=== PATIENT | female | born 1945 | race Caucasian/White ===

== ENCOUNTER 2017-10-18 21:17 | Emergency (ER) | payer MEDICARE, MEDICAID ==
--- NOTE | 2017-10-18 21:23 | UC ---
Respiratory Complaint HPI - HPI Summary HPI Summary: Pt presents with cold like symptoms. She complains of a dry cough, sinus congestion/pressure/pain, headache, and B/L eye irritation that has been lasting a week and getting progressively worse. She has been taking mucinex OTC. She tells me that she has a rather unfortunate health history, mostly due to her weight and heart issues (CABG, valve replacement, and currently stable CHF). She also mentions that she forgot to take her prescribed medications this morning. Her respirations are elevated today, but she says - again - this is her baseline due to her weight and heart issues...she does not feel more SOB than usual. She denies fever, chills, chest congestion, SOB, chest pain, abdominal pain, increased swelling, N/V/D/C. - History of Current Complaint Chief Complaint: UCRespiratory Stated Complaint: COUGH,SOB Time Seen by Provider: 10/18/17 21:23 Hx Obtained From: Patient Onset/Duration: Gradual Onset Severity Initially: Moderate Severity Currently: Moderate Character: Cough: Nonproductive - Allergies/Home Medications Allergies/Adverse Reactions: Allergies Allergy/AdvReac Type Severity Reaction Status Date / Time No Known Allergies Allergy Verified 06/10/16 18:16 PMH/Surg Hx/FS Hx/Imm Hx Cardiovascular History: Cardiac Disease, Hypertension, Congestive Heart Failure Psychological History: Anxiety, Depression Other History Of: Anticoagulant Therapy - Coumadin - Surgical History Surgical History: Yes Surgery Procedure, Year, and Place: 2004 - mitral valve replacement, 2009 [facility]- 2nd mitral valve replacement, CABG - Family History Known Family History: Positive: Unknown - Social History Alcohol Use: None Substance Use Type: None Smoking Status (MU): Never Smoked Tobacco Review of Systems Constitutional: Negative Skin: Negative Eyes: Eye Redness ENT: Sore Throat, Nasal Discharge, Sinus Congestion, Sinus Pain/Tenderness Respiratory: Cough Cardiovascular: Negative Gastrointestinal: Negative Genitourinary: Negative Neurological: Negative Psychological: Negative All Other Systems Reviewed And Are Negative: Yes Physical Exam Triage Information Reviewed: Yes Appearance: Ill-Appearing, Obese Vital Signs: Initial Vital Signs Temp 97.9 F 10/18/17 21:18 Pulse 105 10/18/17 21:18 Resp 24 10/18/17 21:18 BP 180/84 10/18/17 21:18 Pulse Ox 98 10/18/17 21:18 Vital Signs Reviewed: Yes Eyes: Positive: Conjunctiva Clear, Other: - Erythema about the eyelids, but no conjunctival injection or irritation. No dischage. EOMI. PERRLA ENT: Positive: Hearing grossly normal, Pharynx normal, Nasal congestion, Nasal drainage, TMs normal, Sinus tenderness. Negative: Pharyngeal erythema, TM bulging, TM dull, TM red, Tonsillar swelling, Tonsillar exudate Neck: Positive: Supple, Nontender, No Lymphadenopathy Respiratory: Positive: Chest non-tender, Lungs clear, Normal breath sounds, No respiratory distress, No accessory muscle use Cardiovascular: Positive: Pulses Normal Abdomen Description: Positive: Nontender, Soft. Negative: Distended, Guarding Bowel Sounds: Positive: Present Neurological: Positive: Alert Psychological: Positive: Age Appropriate Behavior Skin: Positive: Other - There is 1+ edema in b/l LE - pt says this is her baseline.. Negative: rashes UC Diagnostic Evaluation - Laboratory O2 Sat by Pulse Oximetry: 98 Respiratory Course/Dx - Course Course Of Treatment: Sinusitis - Augmentin for 10 days. Her lungs are clear on exam - no need for CXR at this time. Her LE edema is mild and is her baseline - per pt...this with normal lung sounds and 98% O2 RA - low suspicion for decomp CHF. Her BP was elevated upon presentation. She has not taken her medications today. Her BP was rechecked with a manual cuff and found to be 124/ 62. She was advised to be more careful and make sure she is taking her daily medications as prescribed. - Differential Dx/Diagnosis Differential Diagnosis/HQI/PQRI: Asthma, Bronchitis, CHF, Pulmonary Edema, Influenza, Lower Resp Infection, Pulmonary Embolism, Sinusitis Provider Diagnoses: Sinusitis. HTN. CHF Discharge - Discharge Plan Condition: Stable Disposition: HOME Prescriptions: Amoxicillin/Clavulanate TAB* [Augmentin TAB 875*] 875 mg PO BID #20 tab Patient Education Materials: Sinusitis (ED) Referrals: Roger Shen DO [Primary Care Provider] - Additional Instructions: 1) If you develop a fever, increasing SOB, chest pain, new or worsening symptoms - please call your PCP or go to the ED. 2) Augmentin twice a day for 10 days Your blood pressure was high at todays visit. Please see your primary provider within 4 weeks for recheck and re-evaluation.
[2017-10-18] MEDS ORDERED: Amoxicillin/Clavulanate TAB* 875 MG PO ONE (21:42)
[2017-10-18 22:18] VITALS: BP 124/62
== END 2017-10-18 22:00 | disposition home or self-care (01) ==
LOC: UCEAST 21:17
DX: J32.9 Chronic sinusitis, unspecified (principal); I50.9 Heart failure, unspecified; Z95.1 Presence of aortocoronary bypass graft; Z95.2 Presence of prosthetic heart valve; Z79.01 Long term (current) use of anticoagulants; I10 Essential (primary) hypertension; F41.8 Other specified anxiety disorders
CPT/HCPCS: 99212; A9270-GY; G0463

== ENCOUNTER 2018-02-15 11:39 | Inpatient (IN) | payer MEDICARE, MEDICAID ==
[2018-02-15 12:54] LABS: ABS Basophils 0 10^3/ul (0-0.2); ABS Eosinophils 0.1 10^3/ul (0-0.6); ABS Lymphocytes 0.9 10^3/ul (1.0-4.8); ABS Monocytes 0.6 10^3/ul (0-0.8); ABS Neutrophils 6.9 10^3/ul (1.5-7.7); ABS Nucleated RBC 0 10^3/ul; Eosinophil % 1.1 % (0-6); Hematocrit 42 % (35-47); Lymphocyte % 10.3 % (25-47); Mean Corpuscular HGB Conc 34 g/dl (31-36); Mean Corpuscular Hemoglobin 29 pg (27-31); Mean Corpuscular Volume 85 fL (80-97); Mean Platelet Volume 9 um3 (7.4-10.4); Nucleated Red Blood Cells % 0.1; Platelet Count 133 10^3/ul (150-450); Red Blood Count 4.91 10^6/ul (4.0-5.4); Red Cell Distribution Width 17 % (10.5-15); White Blood Count 8.5 10^3/ul (3.5-10.8)
[2018-02-15 13:03] LABS: INR 1.79 (0.77-1.02)
[2018-02-15 13:19] LABS: EGFR Non-African American 78.8 (>60)
[2018-02-15 13:20] LABS: Urine Appearance Clear; Urine Blood 1+ (Negative); Urine Color Yellow; Urine Ketones Negative (Negative); Urine Protein Negative (Negative); Urine Specific Gravity 1.019 (1.010-1.030); Urine Urobilinogen Negative (Negative)
--- OUTSIDE RECORDS SUMMARY | 2018-02-15 13:57 | XMS REPORT ---
:1945 External Reference #:[id number] Author Organization [facility] Address [address] [address] Phone [phone] Care Team Providers Name Role Phone Roger Shen DO Primary Care Physician Unavailable Payers Type Date Identification Numbers Payment Provider Subscriber Medicare Primary Policy Number: [id number] Medicare Chase Gutierrez PayID: [id number] [address] [place] [address] Medigap Part B Policy Number: [id number] Medicaid Chase Gutierrez PayID: [id number] [address] [place] [address] Commercial Expires: 2016 Policy Number: [id number] Gilbert Gutierrez Group Name: [id number] [address] PayID: [id number] [place] [address] Health Maintenance Effective: Policy Number: Medicare Blue Chase Gutierrez Organization (O) 11/30/2016 [id number] o Expires: 02/17/2017 Group Number: [id number] [address] [address] PayID: [id number] [place] [address] Problems Date Description Provider Status Onset: 10/09/2014 Dyspnea Fidelia Miles MD Active Onset: 10/09/2014 Obstructive sleep apnea syndrome Fidelia Miles MD Active Onset: 10/30/2014 Disorder of pulmonary circulation Fidelia Miles MD Active Onset: 10/30/2014 Morbid obesity Fidelia Miles MD Active Onset: 03/13/2015 Mitral valve disorder Tricia Jennings M.D. Active Onset: 03/13/2015 Heart valve replacement Tricia Jennings M.D. Active Onset: 03/13/2015 Arteriosclerosis of arterial coronary Tricia Jennings M.D. 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 Active Onset: 05/19/2016 Localized, primary osteoarthritis Marilee Alatorre M.D. Active Onset: 08/12/2016 Preoperative cardiovascular examination Tricia Jennings M.D. Active Family History Date Family Member(s) Problem(s) Comments General Lung Cancer General Heart Disease Father Stroke Mother Heart Disease Social History Type Date Description Comments Marital Status Single Lives With Alone Occupation Retired Occupation Disabled Cigarette Use Never Smoked Cigarettes ETOH Use Denies alcohol use Smoking Patient has never smoked Recreational Drug Use Denies Drug Use Daily Caffeine Consumes on average 2 cups of hot tea per day Daily Caffeine Soda sometimes Exercise Type/Frequency Does not exercise Allergies, Adverse Reactions, Alerts Date Description Reaction Status Severity Comments 09/13/2014 NKDA active Medications Medication Date Status Form Strength Qnty SIG Indications Ordering Provider Rosuvastatin 01/05/ Active Tablets 40mg 30tab take one Tricia Calcium 2017 s tablet [place], every hs M.D. Coreg 01/01/ Active Tablets 6.25mg 180ta 1 tab oral I95.9 Akosua SJoshua 2017 bs bid Fan, N.P. Enoxaparin Sodium 06/13/ Active Solution 150mg/ml 4unit take 140mg Tricia 2015 s subq every Michaela, 12 hours. M.D. (as needed) Amoxicillin 05/09/ Active Capsules 500mg 8caps 4 tablets 1 Tricia 2015 hour before [place], dental work M.D. Coumadin 07/09/ Active Tablets 1mg 120ta take 3mg 7 Tricia 2014 bs nights per [place], week as M.D. directed Torsemide 09/13/ Active Tablets 20mg 90tab /2 by Tricia 2013 s mouth twice [place], a day M.D. (patient takes once a day usually, as it causes too much urination ) Multivitamins 09/13/ Active Capsules 30cap 1 by mouth Fidelia 2013 s every day MD Allan Miles / Active Tablets 10mg 1 by mouth Unknown 0000 every night at bedtime as needed sleep insomnia Ditropan XL / Active Tablets 5mg 90tab 1 by mouth Unknown 0000 ER 24HR s three times a day Coumadin / Active Tablets 3mg 180ta 1 tab 7 Tricia 0000 bs nights [place], aweek as M.D. directed Oxycodone HCL / Active Tablets 5mg 30tab 1 tab by Unknown 0000 s mouth every 6 hours as needed for pain Seroquel / Active Tablets 200mg 30tab by mouth Unknown 0000 s every night at bedtime Potassium / Active Packet 20Meq 30uni 1 by mouth Unknown Chloride 0000 ts bid Aspirin Ec / Active Tablets 81mg 90tab 1 by mouth Unknown 0000 DR s every day Colace / Active Capsules 100mg 60cap 1 by mouth Unknown 0000 s daily as needed Nystatin Domestic / Active Powder 60uni apply to Unknown 0000 ts affected areas under the abdominal folds Ferrous Sulfate / Active Tablets 324(65Fe) 1 by mouth Unknown 0000 DR mg daily Bupropion HCL ER / Active Tablets 150mg 1 by mouth Unknown (XL) 0000 ER 24HR every day Omeprazole / Active Capsules 20mg 1 by mouth Unknown 0000 DR every day Vitamin D3 / Active Capsules 1000Units 1 by mouth Unknown 0000 twice a day Vitamin B12 / Active Tablets 1000mcg 1 by mouth Unknown 0000 ER every day Acetaminophen-Cod / Active Tablets 300-30mg Take One To Unknown eine #3 0000 Two Tablets By Mouth Every 4 To 6 Hours as Needed For Pain after dental procedures Klonopin / Active Tablets 1mg 1 tablet up Unknown 0000 to 3 items daily as needed Pravachol 08/17/ Hx Tablets 40mg 90tab 1 tablet by Tricia 2015 - s mouth every [place], 01/05/ night at M.D. 2018 bedtime Coreg 09/13/ Hx Tablets 12.5mg 180ta 1 by mouth Tricia 2013 - bs twice a day [place], 01/01/ M.D. 2018 Coumadin / Hx Tablets 2mg 90tab all days Unknown 0000 - s but 07/09/ tuesdays and thrusdays Flexeril 00/00/ Hx Tablets 10mg 30tab 1 by mouth Unknown 0000 - s as needed 2014 Prozac / Hx Capsules 40mg 30cap 1 by mouth Unknown 0000 - s every day 2016 Klonopin / Hx Tablets 2mg 60tab one by Unknown 0000 - s mouth three 01/27/ times a day 2016 as needed Pravachol / Hx Tablets 20mg 90tab 1 tablet by Unknown 0000 - s mouth every 08/17/ night at 2014 bedtime Prilosec 00/ Hx Capsules 20mg 1 by mouth Unknown 0000 - DR every day 2015 Cyclobenzaprine / Hx Tablets 10mg one by Unknown HCL 0000 - mouth three 04/26/ times a day 2014 as needed spasm Ferrous Fumarate / Hx Tablets 325(106Fe 1 by mouth Unknown 0000 - ) mg every day 2014 Silenor / Hx Tablets 6mg Ravi, 0000 - David 05/13/ MD Syed 2015 Oxybutynin / Hx Tablets 5mg [place], Chloride 0000 - Amie 2015 Ativan / Hx Tablets 1mg 1 tablet Unknown 0000 - twice a day 11/23/ as needed 2016 (patient taking routinely 1 in daytime and 1 @ hs) Ampicillin / Hx 835mg 1 tab bid X Unknown 0000 - 7 days (Days 2017 remaining 6 02/24/2017) Amoxicillin/Clavu / Hx Tablets 875-125mg Unknown lanate Potassium 0000 - 2017 Medications Administered in Office Medication Date Status Form Strength Qnty SIG Indications Ordering Provider Depomedrol Administered Injection Marilee 40MG Brendan Alatorre M.D. Depomedrol Administered Injection Marilee 40MG Brendan Alatorre M.D. Depomedrol Administered Injection Marilee 40MG 017 Jonathan Alatorre Depomedrol Administered Injection Marilee 40MG Brendan Alatorre M.D. Depomedrol Administered Injection Marilee 40MG 016 Jonathan Alatorre Depomedrol Administered Injection Marilee 40MG 016 Jonathan Alatorre Depomedrol Administered Injection Marilee 40MG 016 Jonathan Alatorre Depomedrol Administered Injection Marilee 40MG 016 Jonathan Alatorre Depomedrol Administered Injection Marilee 40MG 016 Jonathan Alatorre Depomedrol Administered Injection Marilee 40MG Tatiana Alatorre M.D. Depomedrol Administered Injection Marilee 40MG Tatiana Alatorre M.D. Depomedrol Administered Injection Marilee 80MG 015 Jonathan Alatorre Depomedrol Administered Injection Marilee 80MG 015 Jonathan Alatorre Depomedrol Administered Injection Marilee 80MG 015 Jonathan Alatorre Depomedrol Administered Injection Marilee 80MG Va Alatorre M.D. Immunizations CPT Code Status Date Vaccine Lot # [id number] Given 10/03/2014 Influenza Virus 3Yrs & Over Vital Signs Date Vital Result Comment 01/19/2018 Height 65 inches 5'5" Weight 319.00 lb with shoes ( at home 315lbs 01/19/18) Heart Rate 90 /min BP Systolic Sitting 102 mmHg Lue lg cuff BP Diastolic Sitting 60 mmHg Lue lg cuff BP Systolic Standing 110 mmHg Lue lg cuff BP Diastolic Standing 62 mmHg Lue lg cuff Respiratory Rate 17 /min BMI (Body Mass Index) 53.1 kg/m2 01/01/2018 Height 65 inches 5'5" Weight 307.00 lb without shoes Heart Rate 88 /min reg with ectopy BP Systolic 90 mmHg recheck siting Lue BP Diastolic 55 mmHg recheck siting Lue BP Systolic Sitting 94 mmHg Lue lg cuff BP Diastolic Sitting 62 mmHg Lue lg cuff BP Systolic Standing 120 mmHg Lue lg cuff BP Diastolic Standing 70 mmHg Lue lg cuff Respiratory Rate 17 /min BMI (Body Mass Index) 51.1 kg/m2 Ejection Fraction 60% date 08/15/14 ECHO 11/09/2017 Height 65 inches 5'5" Weight 305.00 lb BP Systolic 110 mmHg BP Diastolic 68 mmHg Body Temperature 97.4 F BMI (Body Mass Index) 50.7 kg/m2 08/10/2017 Height 65 inches 5'5" Weight 304.00 lb Heart Rate 97 /min BP Systolic 133 mmHg BP Diastolic 72 mmHg Pain Level 6 BMI (Body Mass Index) 50.6 kg/m2 08/07/2017 Height 64.25 inches 5'4.25" Weight 304.50 lb with shoes Heart Rate 86 /min BP Systolic Sitting 130 mmHg BP Diastolic Sitting 68 mmHg Respiratory Rate 18 /min BMI (Body Mass Index) 51.9 kg/m2 Ejection Fraction 60% 08/15/2014-echo 02/24/2017 Height 64.25 inches 5'4.25" Weight 306.50 lb with shoes Heart Rate 86 /min BP Systolic Sitting 138 mmHg Rue lrg cuff BP Diastolic Sitting 80 mmHg Rue lrg cuff BP Systolic Standing 132 mmHg Rue lrg cuff BP Diastolic Standing 80 mmHg Rue lrg cuff Respiratory Rate 18 /min BMI (Body Mass Index) 52.2 kg/m2 Ejection Fraction 60% 08/15/2014-echo 02/18/2017 Height 64.25 inches 5'4.25" Weight 309.00 lb Heart Rate 84 /min BP Systolic 132 mmHg BP Diastolic 82 mmHg Respiratory Rate 18 /min Body Temperature 96.3 F Pain Level 7 BMI (Body Mass Index) 52.6 kg/m2 11/19/2016 Height 64.25 inches 5'4.25" Weight 309.00 lb Respiratory Rate 22 /min Pain Level 7 BMI (Body Mass Index) 52.6 kg/m2 08/20/2016 Heart Rate 102 /min BP Systolic 112 mmHg BP Diastolic 69 mmHg Pain Level 8 08/12/2016 Height 64.25 inches 5'4.25" Weight 309.00 lb with sandals Heart Rate 82 /min BP Systolic Sitting 110 mmHg LA lrg cuff BP Diastolic Sitting 74 mmHg LA lrg cuff BP Systolic Standing 108 mmHg LA lrg cuff BP Diastolic Standing 66 mmHg LA lrg cuff Respiratory Rate 20 /min BMI (Body Mass Index) 52.6 kg/m2 Ejection Fraction 60% 08/15/14 06/20/2016 Height 64.25 inches 5'4.25" Weight 310.00 lb with shoes Heart Rate 86 /min BP Systolic Sitting 100 mmHg Ra lrg cuff BP Diastolic Sitting 62 mmHg Ra lrg cuff BP Systolic Standing 110 mmHg Ra lrg cuff BP Diastolic Standing 64 mmHg Ra lrg cuff BMI (Body Mass Index) 52.8 kg/m2 Ejection Fraction 60% echo 08/15/14 06/12/2016 Height 64.25 inches 5'4.25" Weight 312.00 lb w/ shoes Heart Rate 96 /min BP Systolic Sitting 100 mmHg Rue, lg cuff BP Diastolic Sitting 52 mmHg Rue, lg cuff BP Systolic Standing 110 mmHg Rue BP Diastolic Standing 64 mmHg Rue Respiratory Rate 18 /min BMI (Body Mass Index) 53.1 kg/m2 Ejection Fraction 60% As of 08/15/14 echo 05/19/2016 Height 64.25 inches 5'4.25" Weight 317.00 lb Pain Level 5 BMI (Body Mass Index) 54.0 kg/m2 02/08/2016 Height 64.25 inches 5'4.25" Weight 317.00 lb Pain Level 7 BMI (Body Mass Index) 54.0 kg/m2 08/17/2015 Height 64.25 inches 5'4.25" Weight 317.00 lb per pt Heart Rate 82 /min reg BP Systolic Sitting 100 mmHg Lue, lg cuff BP Diastolic Sitting 64 mmHg Lue, lg cuff BP Systolic Standing 96 mmHg Lue BP Diastolic Standing 70 mmHg Lue Respiratory Rate 18 /min BMI (Body Mass Index) 54.0 kg/m2 Ejection Fraction 60% as of 08/15/14 echo 05/14/2015 Height 64.25 inches 5'4.25" Weight 322.00 lb Heart Rate 87 /min BP Systolic 109 mmHg BP Diastolic 68 mmHg Pain Level 6 BMI (Body Mass Index) 54.8 kg/m2 04/27/2015 Height 64.25 inches 5'4.25" Weight 322.75 lb with shoes Heart Rate 88 /min BP Systolic Sitting 138 mmHg LA lg cuff BP Diastolic Sitting 78 mmHg LA lg cuff BP Systolic Standing 132 mmHg LA lg cuff BP Diastolic Standing 80 mmHg LA lg cuff Respiratory Rate 16 /min BMI (Body Mass Index) 55.0 kg/m2 Ejection Fraction 60% date 08/15/14 03/13/2015 Height 64.25 inches 5'4.25" Weight 318.00 lb Heart Rate 88 /min BP Systolic 142 mmHg Ra, Lg cuff BP Diastolic 86 mmHg Ra, Lg cuff BP Systolic Sitting 142 mmHg LA, Lg cuff BP Diastolic Sitting 84 mmHg LA, Lg cuff Respiratory Rate 16 /min BMI (Body Mass Index) 54.2 kg/m2 02/23/2015 Height 66 inches 5'6" Weight 325.00 lb Pain Level 3 BMI (Body Mass Index) 52.5 kg/m2 01/29/2015 Height 66 inches 5'6" Weight 325.00 lb Heart Rate 97 /min BP Systolic Sitting 148 mmHg BP Diastolic Sitting 99 mmHg Respiratory Rate 24 /min O2 % BldC Oximetry 98 % BMI (Body Mass Index) 52.5 kg/m2 01/26/2015 Height 65 inches 5'5" Weight 325.00 lb Heart Rate 87 /min BP Systolic 114 mmHg BP Diastolic 72 mmHg Pain Level 7 BMI (Body Mass Index) 54.1 kg/m2 10/30/2014 Height 65 inches 5'5" Weight 314.00 lb Heart Rate 90 /min BP Systolic Sitting 110 mmHg left arm, large cuff BP Diastolic Sitting 74 mmHg left arm, large cuff Respiratory Rate 20 /min O2 % BldC Oximetry 98 % Room air BMI (Body Mass Index) 52.2 kg/m2 09/13/2014 Height 65 inches 5'5" Weight 322.00 lb Heart Rate 95 /min BP Systolic Sitting 112 mmHg BP Diastolic Sitting 63 mmHg Respiratory Rate 22 /min Body Temperature 99.5 F O2 % BldC Oximetry 96 % BMI (Body Mass Index) 53.6 kg/m2 Neck Circumference in inches 19 Results Test Date Test Result H/L Range Note Lipid Panel - [facility] 01/19/2018 Creatine <pending> Kinase(CK) Inr/Protime 01/13/2018 Inr 5.21 High 0.77-1.02 1 Basic Metabolic 01/04/2018 Sodium 141 mmol/L 133-145 Panel Potassium 4.1 mmol/L 3.5-5.0 Chloride 109 mmol/L 101-111 Co2 Carbon Dioxide 24 mmol/L 22-32 Anion Gap 8 mmol/L 2-11 Glucose 89 mg/dL 70-100 Blood Urea Nitrogen 20 mg/dL 6-24 Creatinine 0.74 mg/dL 0.51-0.95 BUN/Creatinine Ratio 27.0 High 8-20 Calcium 9.3 mg/dL 8.6-10.3 Egfr Non- 77.6 >60 Egfr 99.8 >60 2 Lipid Profile (Trig/Chol/HDL) 01/04/2018 Triglycerides 224 mg/dL 3 Cholesterol 196 mg/dL 4 HDL Cholesterol 37.8 mg/dL 5 LDL Cholesterol 113 mg/dL 6 Lipid Panel - [facility] 01/01/2018 Creatine Kinase(CK) <pending> Inr/Protime 12/01/2017 Inr 1.16 High 0.77-1.02 Inr/Protime 11/17/2016 Inr 3.08 High 0.89-1.11 Inr/Protime 10/07/2016 Inr 3.66 High 0.89-1.11 Inr/Protime 07/17/2016 Inr 2.21 High 0.89-1.11 CBC Auto Diff 06/11/2016 White Blood Count 6.2 10^3/uL 3.5-10.8 Red Blood Count 4.51 10^6/uL 4.0-5.4 Hemoglobin 12.3 g/dL 12.0-16.0 Hematocrit 39 % 35-47 Mean Corpuscular Volume 86 fL 80-97 Mean Corpuscular Hemoglobin 27 pg 27-31 Mean Corpuscular HGB Conc 32 g/dL 31-36 Red Cell Distribution Width 17 % High 10.5-15 Platelet Count 124 10^3/uL Low 150-450 Mean Platelet Volume 9 um3 7.4-10.4 Abs Neutrophils 4.6 10^3/uL 1.5-7.7 Abs Lymphocytes 1.0 10^3/uL 1.0-4.8 Abs Monocytes 0.4 10^3/uL 0-0.8 Abs Eosinophils 0.2 10^3/uL 0-0.6 Abs Basophils 0 10^3/uL 0-0.2 Abs Nucleated RBC 0 10^3/uL Granulocyte % 73.6 % 38-83 Lymphocyte % 15.6 % Low 25-47 Monocyte % 6.8 % 1-9 Eosinophil % 3.5 % 0-6 Basophil % 0.5 % 0-2 Nucleated Red Blood Cells % 0 Inr/Protime 06/11/2016 Inr 2.34 High 0.89-1.11 CBC Auto Diff 06/10/2016 White Blood Count 7.5 10^3/uL 3.5-10.8 Red Blood Count 4.68 10^6/uL 4.0-5.4 Hemoglobin 13.0 g/dL 12.0-16.0 Hematocrit 40 % 35-47 Mean Corpuscular Volume 86 fL 80-97 Mean Corpuscular Hemoglobin 28 pg 27-31 Mean Corpuscular HGB Conc 32 g/dL 31-36 Red Cell Distribution Width 18 % High 10.5-15 Platelet Count 138 10^3/uL Low 150-450 Mean Platelet Volume 9 um3 7.4-10.4 Abs Neutrophils 5.4 10^3/uL 1.5-7.7 Abs Lymphocytes 1.2 10^3/uL 1.0-4.8 Abs Monocytes 0.6 10^3/uL 0-0.8 Abs Eosinophils 0.2 10^3/uL 0-0.6 Abs Basophils 0 10^3/uL 0-0.2 Abs Nucleated RBC 0.02 10^3/uL Granulocyte % 72.2 % 38-83 Lymphocyte % 16.1 % Low 25-47 Monocyte % 8.0 % 1-9 Eosinophil % 3.1 % 0-6 Basophil % 0.6 % 0-2 Nucleated Red Blood Cells % 0.2 Inr/Protime 06/10/2016 Inr 10.42 High 0.89-1.11 7 Comp Metabolic Panel 06/10/2016 Sodium 141 mmol/L 133-145 Potassium 4.0 mmol/L 3.5-5.0 Chloride 109 mmol/L 101-111 Co2 Carbon Dioxide 27 mmol/L 22-32 Anion Gap 5 mmol/L 2-11 Glucose 99 mg/dL 70-100 Blood Urea Nitrogen 18 mg/dL 6-24 Creatinine 0.80 mg/dL 0.51-0.95 BUN/Creatinine Ratio 22.5 High 8-20 Calcium 8.7 mg/dL 8.6-10.3 Total Protein 6.6 g/dL 6.4-8.9 Albumin 3.5 g/dL 3.2-5.2 Globulin 3.1 g/dL 2-4 Albumin/Globulin Ratio 1.1 1-3 Total Bilirubin 0.50 mg/dL 0.2-1.0 Alkaline Phosphatase 90 U/L 34-104 Alt 11 U/L 7-52 Ast 16 U/L 13-39 Egfr Non- 71.3 >60 Egfr 91.7 >60 8 Laboratory test 06/10/2016 Partial Thrombo 79.6 seconds High 26.0-36.3 finding Time PTT Stool For Blood 06/10/2016 Stool Occult Blood SEE RESULT BELOW 9 Urinalysis Profile 06/10/2016 Urine Color Yellow Urine Appearance Clear Urine Specific Adger 1.029 1.010-1.030 Urine pH 5.0 5-9 Urine Urobilinogen Negative Negative Urine Ketones Negative Negative Urine Protein Negative Negative Urine Leukocytes Trace Negative Urine Blood 1+ Negative Urine Nitrite Negative Negative Urine Bilirubin Negative Negative Urine Glucose Negative Negative Urine White Blood Cell Trace(0-5/hpf) Absent Urine Red Blood Cell 2+(6-10/hpf) Absent Urine Bacteria Absent Absent Urine Squamous Epithelial Cell Present Absent Urine Culture And 06/10/2016 Urine Culture SEE RESULT BELOW 10 Sensitivities Inr/Protime 06/10/2016 Inr 11.54 High 0.89-1.11 11 Inr/Protime 04/15/2016 Inr 2.70 High 0.89-1.11 Comp Metabolic Panel 01/28/2016 Sodium 138 mmol/L 133-145 Potassium 3.8 mmol/L 3.5-5.0 Chloride 105 mmol/L 101-111 Co2 Carbon Dioxide 27 mmol/L 22-32 Anion Gap 6 mmol/L 2-11 Glucose 105 mg/dL High 70-100 Blood Urea Nitrogen 13 mg/dL 6-24 Creatinine 0.67 mg/dL 0.51-0.95 BUN/Creatinine Ratio 19.4 8-20 Calcium 9.0 mg/dL 8.6-10.3 Total Protein 6.9 g/dL 6.4-8.9 Albumin 4.1 g/dL 3.2-5.2 Globulin 2.8 g/dL 2-4 Albumin/Globulin Ratio 1.5 1-3 Total Bilirubin 0.80 mg/dL 0.2-1.0 Alkaline Phosphatase 99 U/L 34-104 Alt 12 U/L 7-52 Ast 14 U/L 13-39 Egfr Non- 87.5 >60 Egfr 112.6 >60 12 Laboratory test finding 01/28/2016 C Reactive Protein 15.73 mg/L High &lt ; 5.00 13 CBC Auto Diff 01/28/2016 White Blood Count 6.6 10^3/uL 3.5-10.8 Red Blood Count 4.27 10^6/uL 4.0-5.4 Hemoglobin 12.2 g/dL 12.0-16.0 Hematocrit 37 % 35-47 Mean Corpuscular Volume 87 fL 80-97 Mean Corpuscular Hemoglobin 29 pg 27-31 Mean Corpuscular HGB Conc 33 g/dL 31-36 Red Cell Distribution Width 17 % High 10.5-15 Platelet Count 123 10^3/uL Low 150-450 Mean Platelet Volume 8 um3 7.4-10.4 Abs Neutrophils 5.4 10^3/uL 1.5-7.7 Abs Lymphocytes 0.6 10^3/uL Low 1.0-4.8 Abs Monocytes 0.5 10^3/uL 0-0.8 Abs Eosinophils 0.1 10^3/uL 0-0.6 Abs Basophils 0.1 10^3/uL 0-0.2 Abs Nucleated RBC 0 10^3/uL Granulocyte % 81.5 % 38-83 Lymphocyte % 9.2 % Low 25-47 Monocyte % 7.3 % 1-9 Eosinophil % 1.2 % 0-6 Basophil % 0.8 % 0-2 Nucleated Red Blood Cells % 0 Laboratory test finding 01/28/2016 Erythrocyte Sed Rate 23 mm/Hr 0-40 Celiac Panel 01/22/2016 Tissue Transglutaminase IgA <1.2 U/mL 14 Ab Immunoglobulin A 234 mg/dL 61 - 356 Celiac Interpretation See Comment 15 CBC Auto Diff 01/22/2016 White Blood Count 3.7 10^3/uL 3.5-10.8 Red Blood Count 4.14 10^6/uL 4.0-5.4 Hemoglobin 11.7 g/dL Low 12.0-16.0 Hematocrit 36 % 35-47 Mean Corpuscular Volume 87 fL 80-97 Mean Corpuscular Hemoglobin 28 pg 27-31 Mean Corpuscular HGB Conc 33 g/dL 31-36 Red Cell Distribution Width 17 % High 10.5-15 Platelet Count 119 10^3/uL Low 150-450 Mean Platelet Volume 9 um3 7.4-10.4 Abs Neutrophils 2.5 10^3/uL 1.5-7.7 Abs Lymphocytes 0.7 10^3/uL Low 1.0-4.8 Abs Monocytes 0.3 10^3/uL 0-0.8 Abs Eosinophils 0.1 10^3/uL 0-0.6 Abs Basophils 0 10^3/uL 0-0.2 Abs Nucleated RBC 0 10^3/uL Granulocyte % 67.2 % 38-83 Lymphocyte % 20.5 % Low 25-47 Monocyte % 7.6 % 1-9 Eosinophil % 4.1 % 0-6 Basophil % 0.6 % 0-2 Nucleated Red Blood Cells % 0.1 Comp Metabolic Panel 01/22/2016 Sodium 141 mmol/L 133-145 Potassium 4.0 mmol/L 3.5-5.0 Chloride 109 mmol/L 101-111 Co2 Carbon Dioxide 27 mmol/L 22-32 Anion Gap 5 mmol/L 2-11 Glucose 85 mg/dL 70-100 Blood Urea Nitrogen 13 mg/dL 6-24 Creatinine 0.72 mg/dL 0.51-0.95 BUN/Creatinine Ratio 18.1 8-20 Calcium 8.9 mg/dL 8.6-10.3 Total Protein 6.3 g/dL Low 6.4-8.9 Albumin 3.8 g/dL 3.2-5.2 Globulin 2.5 g/dL 2-4 Albumin/Globulin Ratio 1.5 1-3 Total Bilirubin 0.60 mg/dL 0.2-1.0 Alkaline Phosphatase 93 U/L 34-104 Alt 15 U/L 7-52 Ast 14 U/L 13-39 Egfr Non- 80.6 >60 Egfr 103.6 >60 16 Laboratory test finding 01/22/2016 Phosphorus 2.8 mg/dL 2.5-5.0 Magnesium 2.0 mg/dL 1.9-2.7 TSH (Thyroid Stim Horm) 2.38 ?IU/mL 0.34-5.60 Vitamin B12 239 pg/mL 180-914 17 Vitamin D Total 25(Oh) 10.5 ng/mL Low 30-50 Lipid Profile (Trig/Chol/HDL) 07/17/2015 Triglycerides 107 mg/dL 18 Cholesterol 167 mg/dL 19 HDL Cholesterol 38.2 mg/dL 20 LDL Cholesterol 107 mg/dL 21 Laboratory test finding 07/17/2015 Creatine Kinase(CK) 49 U/L 10-223 Ast (Sgot) 12 U/L Low 13-39 1 Verbal to KARLOS by [id number] at 1417 on 01/13/18. Results read back accurately. 2 Because ethnic data is not always readily available, this report includes an eGFR for both -Americans and non- Americans. The National Kidney Disease Education Program (NKDEP) does not endorse the use of the MDRD equation for patients that are not between the ages of 18 and 70, are , have extremes of body size, muscle mass, or nutritional status, or are non- or non-. According to the National Kidney Foundation, irrespective of diagnosis, the stage of the disease is based on the level of kidney function: Stage Description GFR(mL/min/1.73 m(2)) 1 Kidney damage with normal or decreased GFR 90 2 Kidney damage with mild decrease in GFR 60-89 3 Moderate decrease in GFR 30-59 4 Severe decrease in GFR 15-29 5 Kidney failure <15 (or dialysis) 3 Desirable: <150 Borderline High: 150-199 High: 200-499 Very High: >500 4 Desirable: <200 Borderline High: 200-239 High: >239 5 Low: <40 Desirable: 40-60 High: >60 6 Desirable: <100 Near Optimal: 100-129 Borderline High: 130-159 High: 160-189 Very High: >189 7 Verbal to [id number] by [email or web address] at 1929 on 06/10/16. Results read back accurately. 8 Because ethnic data is not always readily available, this report includes an eGFR for both -Americans and non- Americans. The National Kidney Disease Education Program (NKDEP) does not endorse the use of the MDRD equation for patients that are not between the ages of 18 and 70, are , have extremes of body size, muscle mass, or nutritional status, or are non- or non-. According to the National Kidney Foundation, irrespective of diagnosis, the stage of the disease is based on the level of kidney function: Stage Description GFR(mL/min/1.73 m(2)) 1 Kidney damage with normal or decreased GFR 90 2 Kidney damage with mild decrease in GFR 60-89 3 Moderate decrease in GFR 30-59 4 Severe decrease in GFR 15-29 5 Kidney failure <15 (or dialysis) 9 SEE RESULT BELOW Name: CHASE GUTIERREZ : [address]: Jessa Elizabeth MD Acct: [id number] Unit: [id number] AGE: 70 Location: ED Re06/10/16 SEX: F Status: REG ER SPEC: [id number] LUIS: 06/10/[address]: Sherrie GAYLE REQ: [id number] RECD: 06/10/16 STATUS: COMP ROSIE DR: Jessa Shen DO _ SOURCE: STOOL SPDESC: ORDERED: Hemoccult Procedure Result Reported Site Stool Occult Blood Final 06/10/16- 2031 ML Stool Occult Blood Negative * ML - MAIN LAB ([facility]) . END OF REPORT * ML=Testing performed at Main Lab DEPARTMENT OF PATHOLOGY, [address] [place] [address] Toni Carolina M.D. Director [facility] # [id number] 10 SEE RESULT BELOW Name: CHASE GUTIERREZ : [address]: Jessa Elizabeth MD Acct: [id number] Unit: [id number] AGE: 70 Location: ED Re06/10/16 SEX: F Status: DEP ER SPEC: [id number] LUIS: 06/10/[address]: Sherrie GAYLE REQ: [id number] RECD: 06/10/16 STATUS: HEATHER VELEZ DR: Jessa Shen DO _ SOURCE: URINE SPDESC: ORDERED: Urine Culture Procedure Result Reported Site Urine Culture Final 06/12/16- 1010 ML Few Enterobacteriacae; possible contamination. * ML - MAIN LAB ([facility]) . END OF REPORT * ML=Testing performed at Main Lab DEPARTMENT OF PATHOLOGY, [address] [place] [address] Toni Carolina M.D. Director [facility] # [id number] 11 stat, if INR > 5.0, call cardiology office or MD iron guardrail installer [phone]. Copy Result to: ARLYN SHEN 12 Because ethnic data is not always readily available, this report includes an eGFR for both -Americans and non- Americans. The National Kidney Disease Education Program (NKDEP) does not endorse the use of the MDRD equation for patients that are not between the ages of 18 and 70, are , have extremes of body size, muscle mass, or nutritional status, or are non- or non-. According to the National Kidney Foundation, irrespective of diagnosis, the stage of the disease is based on the level of kidney function: Stage Description GFR(mL/min/1.73 m(2)) 1 Kidney damage with normal or decreased GFR 90 2 Kidney damage with mild decrease in GFR 60-89 3 Moderate decrease in GFR 30-59 4 Severe decrease in GFR 15-29 5 Kidney failure <15 (or dialysis) 13 Acute inflammation: >10.00 14 REFERENCE VALUE <4.0 (Negative) Test Performed by: [place] [address] Ditto Machine Operator: Rolando Moore II, M.D., Ph.D. 15 Negative serology. Celiac disease unlikely. However, approximately 10% of patients with celiac disease are seronegative. Also, patients who are already adhering to a gluten-free diet may be seronegative. If celiac disease is highly clinically suspected, consider HLA-DQ typing. Test Performed by: [place] [address] Ditto Machine Operator: Rolando Moore II, M.D., Ph.D. 16 Because ethnic data is not always readily available, this report includes an eGFR for both -Americans and non- Americans. The National Kidney Disease Education Program (NKDEP) does not endorse the use of the MDRD equation for patients that are not between the ages of 18 and 70, are , have extremes of body size, muscle mass, or nutritional status, or are non- or non-. According to the National Kidney Foundation, irrespective of diagnosis, the stage of the disease is based on the level of kidney function: Stage Description GFR(mL/min/1.73 m(2)) 1 Kidney damage with normal or decreased GFR 90 2 Kidney damage with mild decrease in GFR 60-89 3 Moderate decrease in GFR 30-59 4 Severe decrease in GFR 15-29 5 Kidney failure <15 (or dialysis) 17 Normal Range 180 to 914 Indeterminate Range 145 to 180 Deficient Range <145 18 Desirable <150 Borderline high 150-199 High 200-499 Very High >500 19 Desirable <200 Borderline high 200-239 High >239 20 Low <40 Desirable: 40-60 High: >60 21 Desirable: <100 mg/dL Near Optimal: 100-129 mg/dL Borderline High: 130-159 mg/dL High: 160-189 mg/dL Very High: >189 mg/dL Procedures Date CPT Code Description Status 11/09/201721904 Inject/Drain Joint/Bursa Major Completed 08/10/201787997 Inject/Drain Joint/Bursa Major Completed 08/07/2017 71327 EKG Tracing & Interpretation Completed 02/24/2017 30336 EKG Tracing & Interpretation Completed 11/19/201600550 Inject/Drain Joint/Bursa Major Completed 08/20/201624378 Inject/Drain Joint/Bursa Major Completed 08/12/2016 44018 EKG Tracing & Interpretation Completed 06/12/2016 64993 EKG Tracing & Interpretation Completed 05/19/201611843 Inject/Drain Joint/Bursa Major Completed 02/08/201644534 Inject/Drain Joint/Bursa Major Completed 09/03/201555236 Inject/Drain Joint/Bursa Major Completed 05/14/201546431 Inject/Drain Joint/Bursa Major Completed 03/13/2015 79109 EKG Tracing & Interpretation Completed 01/29/2015 28166 Pulmonary Stress Test Simple Completed 01/26/201569903 Inject/Drain Joint/Bursa Major Completed 10/05/2014 01077 Polysomnography Sleep Staging 4+ Parameters W/Cpap Completed 09/20/2014 08161 Pulmonary Stress Test Simple Completed 01/02/2014 76682 Polysomnography Sleep Staging 4+ Parameters Completed Encounters Type Date Location Provider CPT E/M Dx Office Visit 01/19/2018 [facility] Akosua Chavira, 67712 I25.810 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 I34.8 I25.810 E78.5 I95.9 Z79.01 Office Visit 08/07/2017 8:40a [facility] Tricia Jennings M.D. 94474 Z95.2 Associate Professor Of Library Science I34.8 K02.9 I25.810 E78.5 E66.01 Office Visit 02/24/2017 2:00p [facility] NALINI Casas 28097 Z95.2 I25.810 K02.9 Office Visit 08/12/2016 11:15a [facility] Tricia Jennings M.D. 55293 Z95.2 [facility] Z01.810 I25.810 K02.9 I34.2 I38 Office Visit 06/20/2016 10:30a [facility] NALINI Casas 61360 Z95.2 D68.32 Office Visit 06/12/2016 2:00p [facility] Tricia Jennings M.D. 31647 Z95.2 Cass D68.32 Office Visit 08/17/2015 11:30a [facility] Tricia Jennings M.D. 06164 V43.3 Associate Professor Of Library Science 424.0 272.4 414.04 278.01 Office Visit 05/14/2015 11:30a [facility] Marilee Alatorre M.D. 60773 715.16 C.M.A. 719.46 Office Visit 04/27/2015 1:00p [facility] Tricia Jennings M.D. 41898 424.0 Associate Professor Of Library Science V43.3 414.02 272.4 Office Visit 03/13/2015 2:00p [facility] Tricia Jennings M.D. 81761 424.0 Associate Professor Of Library Science V43.3 414.04 786.05 414.02 272.4 Office Visit 02/23/2015 10:15a [facility] Marilee Alatorre M.D. 13726 715.16 C.M.A. Office Visit 01/29/2015 10:15a [facility] [place] [address] 327.23 Services Of Associate Professor Of Library Science 786.05 278.01 518.89 415.19 Office Visit 01/26/2015 10:30a [facility] aMrilee Alatorre M.D. 85007 715.16 C.M.A. Office Visit 10/30/2014 10:45a [facility] [place] [address] 327.23 Services Of Associate Professor Of Library Science 417.8 786.05 278.01 Office Visit 09/13/2014 11:00a [facility] [place] [address] 327.23 Services Of [facility] 786.05 415.19 518.89 Plan of Care Future Appointment(s):02/08/2018 1:00 pm - [facility] Alatorre M.D. at [facility] [place]01/19/2018 - Marysol Chavira.P.I25.810 Atherosclerosis of CABG w/o angina pectorisNew Orders:EchocardiogramComments:Your weight is up from last visit. You need to really try to increase your physical activity and watch your diet.Follow up:OV Michaela 6 mo; echo and labs priorRecommendations: Start to walk regularly with your home health aide 10-15 minutes to start and increase gradually. Please limit the amount of salt in your diet. It can cause you to retain fluid and make it harder for you to breathe. Check your weight daily and please notify our office if you have > 3lb weight gain.I34.8 Other nonrheumatic mitral valve lnopunbadC01.5 Hyperlipidemia, unspecifiedComments:Your lipids were high on your recent labsRecommendations: Continue Crestor.Z95.2 Presence of prosthetic heart qmeelU07.01 detention ( current) use of anticoagulants
--- OUTSIDE RECORDS SUMMARY | 2018-02-15 13:57 | XMS REPORT ---
:1945 External Reference #:[id number] Author Organization [employer] Address [address] [address] Phone [phone] Care Team Providers Name Role Phone Roger Shen DO Primary Care Physician Unavailable Payers Type Date Identification Numbers Payment Provider Subscriber Medicare Primary Policy Number: [id number] Medicare Chase Gutierrez PayID: [id number] [address] [place] [address] Medigap Part B Policy Number: [id number] Medicaid Chase Gutierrez PayID: [id number] [address] [place] [address] Commercial Expires: 2016 Policy Number: [id number] Gilbert Gutierrez Group Name: [id number] [address] PayID: [id number] [place] [address] Health Maintenance Effective: Policy Number: Medicare Blue Chase Gutierrez Organization (O) 11/30/2016 [id number] o Expires: 02/17/2017 Group Number: [id number] [address] [address] PayID: [id number] [place] [address] Problems Date Description Provider Status Onset: 10/09/2014 [...] take one Tricia Calcium 2017 s tablet [place], every hs M.D. Coreg 01/01/ Active Tablets 6.25mg 180ta 1 tab oral I95.9 Akos[facility] Jody 2017 bs bid Fan, N.P. Enoxaparin Sodium 06/13/ Active Solution 150mg/ml 4unit take 140mg Tricia 2015 s subq every [place], 12 hours. M.D. (as needed) Amoxicillin 05/09/ Active Capsules 500mg 8caps 4 tablets 1 Tricia 2015 hour before [place], dental work M.D. Coumadin 07/09/ Active Tablets 1mg 120ta take 3mg 7 Tricia 2014 bs nights per Michaela, week as M.D. directed Torsemide 09/13/ Active Tablets 20mg 90tab /2 by Tricia 2013 s mouth twice [place], a day M.D. (patient takes once a day usually, as it causes too much urination ) Multivitamins 09/13/ Active Capsules 30cap 1 by mouth Fidelia 2013 s every day MD Allan Miles 00/00/ Active Tablets 10mg 1 by mouth Unknown 0000 every night at bedtime as needed sleep insomnia Ditropan XL / Active Tablets 5mg 90tab 1 by mouth Unknown 0000 ER 24HR s three times a day Coumadin / Active Tablets 3mg 180ta 1 tab 7 Tricia 0000 bs nights [place], aweek as M.D. directed Oxycodone HCL / [...] mouth Unknown 0000 ER every day Acetaminophen-Cod 00/ Active Tablets 300-30mg Take One To Unknown eine #3 0000 Two Tablets By Mouth Every 4 To 6 Hours as Needed For Pain after dental procedures Klonopin / Active Tablets 1mg 1 tablet up Unknown 0000 to 3 items daily as needed Lexapro / Active Unknown 0000 Pravachol 08/17/ Hx Tablets 40mg 90tab 1 tablet by Tricia 2014 - s mouth every [place], 01/05/ night at M.D. 2018 bedtime Coreg 09/13/ Hx Tablets 12.5mg 180ta 1 by mouth Tricia 2013 - bs twice a day Michaela, 01/01/ M.D. 2018 Coumadin / Hx Tablets 2mg 90tab all days Unknown 0000 - s but 07/09/ tuesdays and Flexeril 00/ Hx Tablets 10mg 30tab 1 by mouth Unknown 0000 - s as needed 2014 Prozac / Hx Capsules 40mg 30cap 1 by mouth Unknown 0000 - s every day 2016 Klonopin 00/ Hx Tablets 2mg 60tab one by Unknown 0000 - s mouth three 01/27/ times a day 2016 as needed Pravachol / Hx Tablets 20mg 90tab 1 tablet by Unknown 0000 - s mouth every 08/17/ night at 2014 bedtime Prilosec / Hx Capsules 20mg 1 by mouth Unknown [...] Ambrose, Chloride 0000 - Amie 2015 Ativan 00/ Hx Tablets 1mg 1 tablet Unknown 0000 - twice a day 11/23/ as needed 2016 (patient taking routinely 1 in daytime and 1 @ hs) Ampicillin 00/ Hx 835mg 1 tab bid X Unknown 0000 - 7 days (Days 2016 remaining 6 02/24/2017) Amoxicillin/Clavu / Hx Tablets [...] 016 Jonathan Alatorre Depomedrol Administered Injection Marilee 80MG 015 Jonathan Alatorre Depomedrol Administered Injection Marilee 80MG 015 Jonathan Alatorre Depomedrol Administered Injection Marilee 80MG 015 Jonathan Alatorre Deplunarol Administered Injection Marilee 80MG 015 Jonathan Alatorre Immunizations CPT Code Status Date Vaccine Lot # [id number] Given 10/03/2014 Influenza Virus 3Yrs & Over Vital Signs Date Vital Result Comment 02/08/2018 Height 66 inches 5'6" Weight 311.00 lb BP Systolic 122 mmHg BP Diastolic 60 mmHg Body Temperature 98.1 F Pain Level 8 BMI (Body Mass Index) 50.2 kg/m2 01/19/2018 Height 65 inches 5'5" Weight 319.00 [...] Result H/L Range Note Lipid Panel - [facility] 01/19/2018 Creatine <pending> Kinase(CK) Inr/Protime 01/13/2018 Inr [...] Cholesterol 113 mg/dL 6 Lipid Panel - [facility] 01/01/2018 Creatine Kinase(CK) <pending> Inr/Protime 12/01/2017 Inr [...] Color Yellow Urine Appearance Clear Urine Specific [place] 1.029 1.010-1.030 Urine pH 5.0 5-9 Urine [...] Low 13-39 1 Verbal to KARLOS by [id number] at 1417 on 01/13/18. Results read back [...] 160-189 Very High: >189 7 Verbal to [id number] by [id number] at 1929 on 06/10/16. Results read back [...] [address]: Jessa Elizabeth MD Acct: [id number] Unit: [id number] AGE: 70 Location: ED Re06/10/16 SEX: F Status: REG ER SPEC: [id number] LUIS: 06/10/[address]: Sherrie GAYLE REQ: [id number] RECD: 06/10/16 STATUS: HEATHER VELEZ DR: Jessa Shen DO _ SOURCE: STOOL SPDESC: ORDERED: Hemoccult Procedure Result Reported Site Stool Occult Blood Final 06/10/16- 2031 ML Stool Occult Blood Negative * ML - MAIN LAB ([facility]) . END OF REPORT * ML=Testing performed at Main Lab DEPARTMENT OF PATHOLOGY, [address] [place] [address] Toni Carolina M.D. Director [facility] # [id number] 10 SEE RESULT BELOW Name: CHASE GUTIERREZ : [address]: Jessa Elizabeth MD Acct: [id number] Unit: [id number] AGE: 70 Location: ED Re06/10/16 SEX: F Status: DEP ER SPEC: [id number] LUIS: 06/10/[address]: Sherrie GAYLE REQ: [id number] RECD: 06/10/16 STATUS: COMP OTHR DR: Jessa Shen DO _ SOURCE: URINE SPDESC: ORDERED: Urine Culture Procedure Result Reported Site Urine Culture Final 06/12/16- 1010 ML Few Enterobacteriacae; possible contamination. * ML - MAIN LAB ([facility]) . END OF REPORT * ML=Testing performed at Main Lab DEPARTMENT OF PATHOLOGY, [address] [place] [address] Toni Carolina M.D. Director [facility] # [id number] 11 stat, if INR > 5.0, call cardiology office or MD mortuary operations manager [phone]. Copy Result to: ARLYN SHEN 12 Because [...] REFERENCE VALUE <4.0 (Negative) Test Performed by: [place] [address] Fire Alarm Technician: Rolando Moore II, M.D., Ph.D. 15 Negative serology. Celiac disease unlikely. However, approximately 10% of patients with celiac disease are seronegative. Also, patients who are already adhering to a gluten-free diet may be seronegative. If celiac disease is highly clinically suspected, consider HLA-DQ typing. Test Performed by: [place] [address] Fire Alarm Technician: Rolando Moore II, M.D., Ph.D. 16 Because [...] mg/dL Procedures Date CPT Code Description Status 02/08/201876817 Inject/Drain Joint/Bursa Major Completed 11/09/201734354 Inject/Drain Joint/Bursa Major Completed 08/10/201760720 Inject/Drain Joint/Bursa Major Completed 08/07/2017 51696 EKG Tracing & Interpretation Completed 02/24/2017 56866 EKG Tracing & Interpretation Completed 11/19/201663835 Inject/Drain Joint/Bursa Major Completed 08/20/201678462 Inject/Drain Joint/Bursa Major Completed 08/12/2016 14374 EKG Tracing & Interpretation Completed 06/12/2016 60199 EKG Tracing & Interpretation Completed 05/19/2016 96731 Inject/Drain Joint/Bursa Major Completed 02/08/201615890 Inject/Drain Joint/Bursa Major Completed 09/03/201545964 Inject/Drain Joint/Bursa Major Completed 05/14/2015 78855 Inject/Drain Joint/Bursa Major Completed 03/13/2015 57655 EKG Tracing & Interpretation Completed 01/29/2015 58357 Pulmonary Stress Test Simple Completed 01/26/201502568 Inject/Drain Joint/Bursa Major Completed 10/05/2014 76622 Polysomnography Sleep Staging 4+ Parameters W/Cpap Completed 09/20/2014 28144 Pulmonary Stress Test Simple Completed 01/02/2014 88670 Polysomnography Sleep Staging 4+ Parameters Completed Encounters Type Date Location Provider CPT E/M Dx Office Visit 01/19/2018 [facility] Akosua Chavira, [address]4092 I25.810 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 I34.8 I25.810 E78.5 I95.9 Z79.01 Office Visit 08/07/2017 8:40a [facility] Tricia Jennings M.D. 81350 Z95.2 [facility] I34.8 K02.9 I25.810 E78.5 E66.01 Office Visit 02/24/2017 2:00p [facility] NALINI Casas 02320 Z95.2 I25.810 K02.9 Office Visit 08/12/2016 11:15a [facility] Tricia Jennings M.D. 08976 Z95.2 [facility] Z01.810 I25.810 K02.9 I34.2 I38 Office Visit 06/20/2016 10:30a [facility] NALINI Casas 58073 Z95.2 D68.32 Office Visit 06/12/2016 2:00p [facility] Tricia Jennings M.D. 83177 Z95.2 [facility] D68.32 Office Visit 08/17/2015 11:30a [facility] Tricia Jennings M.D. 67482 V43.3 [facility] 424.0 272.4 414.04 278.01 Office Visit 05/14/2015 11:30a [facility] Mar[facility] Alatorre M.D. 45093 715.16 C.M.A. 719.46 Office Visit 04/27/2015 1:00p [facility] Tricia Jennings M.D. 73898 424.0 [facility] V43.3 414.02 272.4 Office Visit 03/13/2015 2:00p [facility] Tricia Jennings M.D. 20636 424.0 [facility] V43.3 414.04 786.05 414.02 272.4 Office Visit 02/23/2015 10:15a [facility] Marilee Alatorre M.D. 09271 715.16 C.M.A. Office Visit 01/29/2015 10:15a [facility] [place] [address] 327.23 Services Of [facility] 786.05 278.01 518.89 415.19 Office Visit 01/26/2015 10:30a [facility] Mar[facility] Alatorre M.D. 05936 715.16 C.M.A. Office Visit 10/30/2014 10:45a [facility] [place] [address] 327.23 Services Of Electric Pile Driver Operator 417.8 786.05 278.01 Office Visit 09/13/2014 11:00a [facility] [place] [address] 327.23 Services Of Electric Pile Driver Operator 786.05 415.19 518.89 Plan of Care Future Appointment(s):05/10/2018 11:30 am - Marilee Alatorre M.D. at [facility] C.M.A.02/08/2018 - Marilee Alatorre M.D.M25.561 Pain in right kneeFollow up:Follow up: 3 lfmdlzM46.562 Pain in left kneeM25.461 Effusion, right kneeM25.462 Effusion, left kneeM17.0 Bilateral primary osteoarthritis of knee
[2018-02-15] MEDS: oxyCODONE TAB* 5 MG TAB PO PRN (18:02)
--- NOTE | 2018-02-15 19:40 | ED ---
Thony Gray Angela, scribed for Rolando Mills MD on 02/15/18 at 1159 . Psychiatric Complaint - HPI Summary HPI Summary: This pt is a 72 y/o female presenting to [facility] c/o chronic depression. Pt reports she has significant depression that is worsening and states she is not able to tolerate it anymore. She notes she lives "day by day in emptiness." Pt states she has some swelling in her ankles. Pt has never seen a psychiatrist in [facility]. She currently sees a therapist. Pt is currently on Coumadin. PMHx includes 2 cardiac surgeries (last one was in 2009). - History Of Current Complaint Chief Complaint: EDPsychosocial Hx Obtained From: Patient Onset/Duration: Lasting Days, Still Present Timing: Days Severity Currently: Severe Character: Depressed Aggravating Factor(s): Nothing Alleviating Factor(s): Nothing Associated Signs And Symptoms: Positive: Hostile Has Suicidal: Denies: Thoughts, With A Plan Has Homicidal: Denies: Thoughts, With A Plan - Allergies/Home Medications Allergies/Adverse Reactions: Allergies Allergy/AdvReac Type Severity Reaction Status Date / Time No Known Allergies Allergy Verified 02/15/18 12:18 Home Medications: Home Medications Aspirin EC Low Dose* [Ecotrin EC Low Dose 81 MG*] 81 mg PO DAILY 02/15/18 [ History Confirmed 02/15/18] BuPROPion XL* [Bupropion XL*] 300 mg PO DAILY 02/15/18 [History Confirmed ] Escitalopram (NF) [Lexapro 10 mg (NF)] 10 mg PO DAILY 02/15/18 [History Confirmed 02/15/18] Multivitamins/Minerals TAB* [Theragran/minerals TAB*] 1 tab PO DAILY 02/15/18 [ History Confirmed 02/15/18] QUEtiapine XR TAB* [SEROquel Xr TAB*] 150 mg PO BEDTIME 02/15/18 [History Confirmed 02/15/18] Rosuvastatin (NF) [Crestor] 40 mg PO BEDTIME 02/15/18 [History Confirmed ] Warfarin TAB(*) [Coumadin TAB(*)] 2 - 3 mg PO DAILY 02/15/18 [History Confirmed 02/15/18] buPROPion SR TAB* [Wellbutrin SR TAB*] 100 mg PO DAILY 02/15/18 [History Confirmed 02/15/18] PMH/Surg Hx/FS Hx/Imm Hx Endocrine/Hematology History: Reports: Hx Anticoagulant Therapy - Coumadin, Hx Blood Disorders - thrombocytopenia, pancytopenia, Hx Anemia - s/p CABG Denies: Hx Diabetes, Hx Thyroid Disease Cardiovascular History: Reports: Hx Coronary Artery Disease, Hx Hypercholesterolemia, Hx Valvular Heart Disease - mitral valve replacement 2004 & 2009 Denies: Hx Hypertension Respiratory History: Reports: Hx Pulmonary Embolism, Hx Sleep Apnea - ISHA dx, refused CPAP, Other Respiratory Problems/Disorders - pulmonary HTN Denies: Hx Asthma, Hx Chronic Obstructive Pulmonary Disease (COPD) GI History: Denies: Hx Ulcer History: Reports: Hx Acute Renal Failure Musculoskeletal History: Reports: Hx Arthritis - osteo Psychiatric History: Reports: Hx Depression - Cancer History Hx Chemotherapy: No Hx Radiation Therapy: No - Surgical History Surgery Procedure, Year, and Place: 2004 - mitral valve replacement, 2009 [facility]- 2nd mitral valve replacement, CABG Infectious Disease History: No Infectious Disease History: Reports: 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 - Social History Alcohol Use: None Substance Use Type: Reports: None Smoking Status (MU): Never Smoked Tobacco Review of Systems Negative: Fever, Chills ENT: Negative Cardiovascular: Negative Respiratory: Negative Gastrointestinal: Negative Genitourinary: Negative Positive: Edema - ankles Skin: Negative Positive: Depressed All Other Systems Reviewed And Are Negative: Yes Physical Exam - Summary Physical Exam Summary: General: well-appearing, no pain distress Skin: warm, color reflects adequate perfusion, dry Head: normal Eyes: EOMI, LAITH ENT: normal Neck: supple, nontender Respiratory: CTA, breath sounds present Cardiovascular: RRR. Metallic click. Abdomen: soft, nontender Bowel: present Musculoskeletal: normal, strength/ROM intact Neurological: normal, sensory/motor intact, A&O x3 Psychological: affect/mood appropriate Triage Information Reviewed: Yes Vital Signs On Initial Exam: Initial Vitals Temp Pulse Resp BP Pulse Ox 97.6 F 89 16 162/75 96 02/15/18 11:47 02/15/18 11:47 02/15/18 11:47 02/15/18 11:47 02/15/18 11:47 Vital Signs Reviewed: Yes Diagnostics - Vital Signs Vital Signs Temp Pulse Resp BP Pulse Ox 02/15/18 11:47 97.6 F 89 16 162/75 96 - Laboratory Lab Results: Lab Results 02/15/18 02/15/18 02/15/18 Range/Units 12:15 12:15 12:40 WBC (3.5-10.8) 10^3/ul RBC (4.0-5.4) 10^6/ul Hgb (12.0-16.0) g/dl Hct (35-47) % MCV (80-97) fL MCH (27-31) pg MCHC (31-36) g/dl RDW (10.5-15) % Plt Count (150-450) 10^3/ul MPV (7.4-10.4) um3 Neut % (Auto) (38-83) % Lymph % (Auto) (25-47) % [place] % (Auto) (0-7) % Eos % (Auto) (0-6) % Baso % (Auto) (0-2) % Absolute Neuts (auto) (1.5-7.7) 10^3/ul Absolute Lymphs (auto) (1.0-4.8) 10^3/ul Absolute Monos (auto) (0-0.8) 10^3/ul Absolute Eos (auto) (0-0.6) 10^3/ul Absolute Basos (auto) (0-0.2) 10^3/ul Absolute Nucleated RBC 10^3/ul Nucleated RBC % INR (Anticoag Therapy) (0.77-1.02) APTT (26.0-36.3) seconds Sodium 138 (133-145) mmol/L Potassium 4.1 (3.5-5.0) mmol/L Chloride 104 (101-111) mmol/L Carbon Dioxide 28 (22-32) mmol/L Anion Gap 6 (2-11) mmol/L BUN 22 (6-24) mg/dL Creatinine 0.73 (0.51-0.95) mg/dL Est GFR ( Amer) 101.4 (>60) Est GFR (Non-Af Amer) 78.8 (>60) BUN/Creatinine Ratio 30.1 H (8-20) Glucose 83 (70-100) mg/dL Lactic Acid (0.5-2.0) mmol/L Calcium 9.6 (8.6-10.3) mg/dL Magnesium 2.0 (1.9-2.7) mg/dL Total Bilirubin 0.60 (0.2-1.0) mg/dL AST 13 (13-39) U/L ALT 10 (7-52) U/L Alkaline Phosphatase 115 H (34-104) U/L B-Natriuretic Peptide ( - 100) pg/mL Total Protein 7.1 (6.4-8.9) g/dL Albumin 3.9 (3.2-5.2) g/dL Globulin 3.2 (2-4) g/dL Albumin/Globulin Ratio 1.2 (1-3) TSH 2.09 (0.34-5.60) mcIU/mL Urine Color Yellow Urine Appearance Clear Urine pH 6.0 (5-9) Ur Specific [place] 1.019 (1.010-1.030) Urine Protein Negative (Negative) Urine Ketones Negative (Negative) Urine Blood 1+ A (Negative) Urine Nitrate Negative (Negative) Urine Bilirubin Negative (Negative) Urine Urobilinogen Negative (Negative) Ur Leukocyte Esterase Negative (Negative) Urine WBC (Auto) Absent (Absent) Urine RBC (Auto) Trace(0-2/hpf) (Absent) Ur Squamous Epith Cells Present A (Absent) Urine Bacteria Absent (Absent) Urine Glucose Negative (Negative) Salicylates < 2.50 (<30) mg/dL Urine Opiates Screen None detected (None Detect) Acetaminophen < 15 mcg/mL Ur Barbiturates Screen None detected (None Detect) Ur Phencyclidine Scrn None detected (None Detect) Ur Amphetamines Screen Presumptive positive A (None Detect) U Benzodiazepines Scrn None detected (None Detect) Urine Cocaine Screen None detected (None Detect) U Cannabinoids Screen None detected (None Detect) Serum Alcohol < 10 (<10) mg/dL 02/15/18 02/15/18 02/15/18 Range/Units 12:40 12:40 12:40 WBC 8.5 (3.5-10.8) 10^3/ul RBC 4.91 (4.0-5.4) 10^6/ul Hgb 14.0 (12.0-16.0) g/dl Hct 42 (35-47) % MCV 85 (80-97) fL MCH 29 (27-31) pg MCHC 34 (31-36) g/dl RDW 17 H (10.5-15) % Plt Count 133 L (150-450) 10^3/ul MPV 9 (7.4-10.4) um3 Neut % (Auto) 81.6 (38-83) % Lymph % (Auto) 10.3 L (25-47) % [place] % (Auto) 6.6 (0-7) % Eos % (Auto) 1.1 (0-6) % Baso % (Auto) 0.4 (0-2) % Absolute Neuts (auto) 6.9 (1.5-7.7) 10^3/ul Absolute Lymphs (auto) 0.9 L (1.0-4.8) 10^3/ul Absolute Monos (auto) 0.6 (0-0.8) 10^3/ul Absolute Eos (auto) 0.1 (0-0.6) 10^3/ul Absolute Basos (auto) 0 (0-0.2) 10^3/ul Absolute Nucleated RBC 0 10^3/ul Nucleated RBC % 0.1 INR (Anticoag Therapy) 1.79 H (0.77-1.02) APTT 36.8 H (26.0-36.3) seconds Sodium (133-145) mmol/L Potassium (3.5-5.0) mmol/L Chloride (101-111) mmol/L Carbon Dioxide (22-32) mmol/L Anion Gap (2-11) mmol/L BUN (6-24) mg/dL Creatinine (0.51-0.95) mg/dL Est GFR ( Amer) (>60) Est GFR (Non-Af Amer) (>60) BUN/Creatinine Ratio (8-20) Glucose (70-100) mg/dL Lactic Acid (0.5-2.0) mmol/L Calcium (8.6-10.3) mg/dL Magnesium (1.9-2.7) mg/dL Total Bilirubin (0.2-1.0) mg/dL AST (13-39) U/L ALT (7-52) U/L Alkaline Phosphatase (34-104) U/L B-Natriuretic Peptide 126 H ( - 100) pg/mL Total Protein (6.4-8.9) g/dL Albumin (3.2-5.2) g/dL Globulin (2-4) g/dL Albumin/Globulin Ratio (1-3) TSH (0.34-5.60) mcIU/mL Urine Color Urine Appearance Urine pH (5-9) Ur Specific [place] (1.010-1.030) Urine Protein (Negative) Urine Ketones (Negative) Urine Blood (Negative) Urine Nitrate (Negative) Urine Bilirubin (Negative) Urine Urobilinogen (Negative) Ur Leukocyte Esterase (Negative) Urine WBC (Auto) (Absent) Urine RBC (Auto) (Absent) Ur Squamous Epith Cells (Absent) Urine Bacteria (Absent) Urine Glucose (Negative) Salicylates (<30) mg/dL Urine Opiates Screen (None Detect) Acetaminophen mcg/mL Ur Barbiturates Screen (None Detect) Ur Phencyclidine Scrn (None Detect) Ur Amphetamines Screen (None Detect) U Benzodiazepines Scrn (None Detect) Urine Cocaine Screen (None Detect) U Cannabinoids Screen (None Detect) Serum Alcohol (<10) mg/dL 02/15/18 Range/Units 12:40 WBC (3.5-10.8) 10^3/ul RBC (4.0-5.4) 10^6/ul Hgb (12.0-16.0) g/dl Hct (35-47) % MCV (80-97) fL MCH (27-31) pg MCHC (31-36) g/dl RDW (10.5-15) % Plt Count (150-450) 10^3/ul MPV (7.4-10.4) um3 Neut % (Auto) (38-83) % Lymph % (Auto) (25-47) % [place] % (Auto) (0-7) % Eos % (Auto) (0-6) % Baso % (Auto) (0-2) % Absolute Neuts (auto) (1.5-7.7) 10^3/ul Absolute Lymphs (auto) (1.0-4.8) 10^3/ul Absolute Monos (auto) (0-0.8) 10^3/ul Absolute Eos (auto) (0-0.6) 10^3/ul Absolute Basos (auto) (0-0.2) 10^3/ul Absolute Nucleated RBC 10^3/ul Nucleated RBC % INR (Anticoag Therapy) (0.77-1.02) APTT (26.0-36.3) seconds Sodium (133-145) mmol/L Potassium (3.5-5.0) mmol/L Chloride (101-111) mmol/L Carbon Dioxide (22-32) mmol/L Anion Gap (2-11) mmol/L BUN (6-24) mg/dL Creatinine (0.51-0.95) mg/dL Est GFR ( Amer) (>60) Est GFR (Non-Af Amer) (>60) BUN/Creatinine Ratio (8-20) Glucose (70-100) mg/dL Lactic Acid 0.9 (0.5-2.0) mmol/L Calcium (8.6-10.3) mg/dL Magnesium (1.9-2.7) mg/dL Total Bilirubin (0.2-1.0) mg/dL AST (13-39) U/L ALT (7-52) U/L Alkaline Phosphatase (34-104) U/L B-Natriuretic Peptide ( - 100) pg/mL Total Protein (6.4-8.9) g/dL Albumin (3.2-5.2) g/dL Globulin (2-4) g/dL Albumin/Globulin Ratio (1-3) TSH (0.34-5.60) mcIU/mL Urine Color Urine Appearance Urine pH (5-9) Ur Specific [place] (1.010-1.030) Urine Protein (Negative) Urine Ketones (Negative) Urine Blood (Negative) Urine Nitrate (Negative) Urine Bilirubin (Negative) Urine Urobilinogen (Negative) Ur Leukocyte Esterase (Negative) Urine WBC (Auto) (Absent) Urine RBC (Auto) (Absent) Ur Squamous Epith Cells (Absent) Urine Bacteria (Absent) Urine Glucose (Negative) Salicylates (<30) mg/dL Urine Opiates Screen (None Detect) Acetaminophen mcg/mL Ur Barbiturates Screen (None Detect) Ur Phencyclidine Scrn (None Detect) Ur Amphetamines Screen (None Detect) U Benzodiazepines Scrn (None Detect) Urine Cocaine Screen (None Detect) U Cannabinoids Screen (None Detect) Serum Alcohol (<10) mg/dL Result Diagrams: 02/15/18 12:40 02/15/18 12:40 Lab Statement: Any lab studies that have been ordered have been reviewed, and results considered in the medical decision making process. Course/Dx - Course Course Of Treatment: Medications reviewed. Allergies noted. Pt is medically cleared at 16:04. She is awaiting for MHE. Pt will be signed out to Dr. Puga, pending dispo, awaiting MHE. - Differential Dx/Clinical Impression Provider Diagnosis: Mental health problem Discharge - Discharge Plan Condition: Stable Disposition: OTHER Discharge Disposition Comment: signed out to Dr. Puga, pending dispo, awaiting MHE. Referrals: Roger Shen DO [Primary Care Provider] - The documentation as recorded by the Thony greenwood Angela accurately reflects the service I personally performed and the decisions made by me, Rolando Mills MD.
[2018-02-15] MEDS ORDERED: Al Hydrox/Mg Hydrox/Simet LIQ* 30 ML UDC PO PRN (21:31)
[2018-02-15] MEDS ORDERED: Omeprazole CAP* 20 MG PO PRN (21:41)
[2018-02-15] MEDS ORDERED: Zolpidem TAB* 10 MG PO PRN (21:57)
[2018-02-15] MEDS ORDERED: Docusate CAP* 100 MG PO PRN (21:59)
[2018-02-15] MEDS ORDERED: Warfarin TAB(*) 3 MG PO ONE (22:30)
[2018-02-15] MEDS: Atorvastatin* 80 MG TAB PO SCH (23:49)
[2018-02-15] MEDS: Acetaminophen TAB* 325 MG PO PRN (23:49)
[2018-02-15] MEDS: clonazePAM TAB(*) 1 MG PO SCH (23:50)
[2018-02-15] MEDS: Carvedilol TAB* 6.25 MG PO SCH (23:51)
[2018-02-15] MEDS: Oxybutynin TAB* 5 MG PO SCH (23:52)
[2018-02-15] MEDS: QUEtiapine XR TAB* 50 MG PO SCH (23:52)
[2018-02-15] MEDS: Torsemide TAB* 20 MG PO SCH (23:52)
[2018-02-15] MEDS: Potassium Chlor TAB* 20 MEQ TAB.ER PO SCH (23:52)
[2018-02-16] MEDS: buPROPion SR TAB.SR* 100 MG PO SCH (08:32)
[2018-02-16] MEDS: BuPROPion XL* 300 MG TAB.XL PO SCH (08:32)
[2018-02-16] MEDS: clonazePAM TAB(*) 1 MG PO SCH ×3 (08:32→20:56)
[2018-02-16] MEDS: Aspirin EC TAB* 81 MG TAB.EC PO SCH (08:32)
[2018-02-16] MEDS: Potassium Chlor TAB* 20 MEQ TAB.ER PO SCH ×2 (08:32→20:55)
[2018-02-16] MEDS: Citalopram TAB* 20 MG PO SCH (08:33)
[2018-02-16] MEDS: Vitamin THERAPEUTIC TAB PO SCH (08:33)
[2018-02-16] MEDS: Torsemide TAB* 20 MG PO SCH ×2 (08:35→21:07)
[2018-02-16] MEDS: Oxybutynin TAB* 5 MG PO SCH ×3 (08:35→21:07)
[2018-02-16] MEDS: Carvedilol TAB* 6.25 MG PO SCH ×2 (08:35→20:56)
[2018-02-16] MEDS: Atorvastatin* 80 MG TAB PO SCH (20:56)
[2018-02-16] MEDS: QUEtiapine XR TAB* 50 MG PO SCH (20:56)
[2018-02-16] MEDS ORDERED: Warfarin TAB(*) 2 MG PO SCH (21:00)
[2018-02-17 07:36] LABS: INR 2.49 (0.77-1.02)
[2018-02-17] MEDS: Carvedilol TAB* 6.25 MG PO SCH ×2 (08:25→20:59)
[2018-02-17] MEDS: Potassium Chlor TAB* 20 MEQ TAB.ER PO SCH ×2 (08:25→20:59)
[2018-02-17] MEDS: clonazePAM TAB(*) 1 MG PO SCH ×3 (08:26→20:59)
[2018-02-17] MEDS: Vitamin THERAPEUTIC TAB PO SCH (08:26)
[2018-02-17] MEDS: Oxybutynin TAB* 5 MG PO SCH ×3 (08:26→20:59)
[2018-02-17] MEDS: Torsemide TAB* 20 MG PO SCH ×2 (08:26→21:00)
[2018-02-17] MEDS: Aspirin EC TAB* 81 MG TAB.EC PO SCH (08:26)
[2018-02-17] MEDS: BuPROPion XL* 300 MG TAB.XL PO SCH (08:26)
[2018-02-17] MEDS: Citalopram TAB* 20 MG PO SCH (08:26)
[2018-02-17] MEDS: buPROPion SR TAB.SR* 100 MG PO SCH (08:26)
[2018-02-17] MEDS: oxyCODONE TAB* 5 MG TAB PO PRN (12:04)
--- NOTE | 2018-02-17 12:57 | PN ---
MHU: Group Therapy Note - Service Type Service Type: 87573 Group Psychotherapy - Cognitive Behavioral Group Therapy ( CBT):Patient attended CBT programming this morning and presented with flat affect that did not vary with discussion. Although responsive to direct prompts to respond to questions, patient did not engage in spontaneous conversation.
[2018-02-17] MEDS: Benzocaine/Menthol LOZ* 1 LOZENGE PO PRN ×2 (14:56→21:05)
--- NOTE | 2018-02-17 15:28 | PN ---
Subjective - Subjective Date of Service: 02/17/18 Service Type: 10602 Hosp care 35 min high complexity Subjective: Heidi met with me and with Laila Crowder. We discussed medication changes, which are difficult to make as she is on many medications and there are cardiac implications for several of her medications. We discussed the idea of ECT, which she had 30 years ago. She had many objections, including the inconvenience of going to [place]. She was unable to give an answer regarding ECT until I have conversed with Dr. Jennings to determine the safety of ECT given Heidi having a metal heart valve. Heidi generally is unhappy and continues to report that she has done a good job of masking her unhappiness. When reflected to her that she is no longer masking her unhappiness, she stated , "Well I must be getting better at it." Objective - Appearance Appearance: Obese Dysmorphic Features: No Hygiene: Normal Grooming: Well Kept - Behavior Psychomotor Activities: Normal Exhibits Abnormal Movement: No - Attitude and Relatedness Attitude and Relatedness: Needy Eye Contact: Good - Speech Quality: Unpressured Latencies: Normal Quantity: Copious - Mood Patient's Decription of Mood: "Okay" - Affect Observed Affect: Fair Affect Consistent with: Dysphoria - Thought Process Patient's Thought Process: Coherent, Goal Directed Thought Content: Yes Passive Wish, No Suicidal Planning, No Homicidal Ideation, No Paranoid Ideation - Sensorium Experiencing Hallucinations: No, Sensorium is Clear Type of Hallucinations: Visual: No, Auditory: No, Command: No - Level of Consciousness Level of Consciousness: Alert Orientation: Yes Intact, Yes Orientated to Time, Yes Orientated to Place, Yes Orientated to Person - Impulse Control Impulse Control: Intact - Insight and Judgement Insight and Judgement: Fair - Group Participation Particating in Group Activities: Yes - Medication Management Medication Management Adherence: Yes - Additional Observations Comments: Insight is limited by focus on illnesses. Although cooperative, she is irritable. Assessment - Assessment Merits Inpatient Hospitalization: For Immediate Safety Inpatient DSM-V Dx: F33.2 Clinical Impression: 72-year-old morbidly obese female who comes in with a DNR that is not active here who was sent by her therapist at [facility] as they both perceived her depression to be worsening. Plan - Plan Treatment Plan: Name: HEIDI GUTIERREZ Birthdate: 1945 [id number] Continued Medication Management: Continue Outpt Medication Medications: Current Medications Acetaminophen (Tylenol Tab*) 650 mg PO Q4H PRN PRN Reason: PAIN or TEMP > 101 F Last Admin: 02/15/18 23:49 Dose: 650 mg Al Hydrox/Mg Hydrox/Simethicone (Maalox Plus*) 30 ml PO Q4H PRN PRN Reason: INDIGESTION Aspirin (Aspirin Ec Low Dose*) 81 mg PO DAILY [facility] Last Admin: 02/17/18 08:26 Dose: 81 mg Atorvastatin Calcium (Lipitor*) 80 mg PO BEDTIME [facility] Last Admin: 02/16/18 20:56 Dose: 80 mg Bupropion HCl (Wellbutrin Sr Tab*) 100 mg PO QAM [facility] Last Admin: 02/17/18 08:26 Dose: 100 mg Bupropion HCl (Bupropion Xl*) 300 mg PO DAILY [facility] Last Admin: 02/17/18 08:26 Dose: 300 mg Carvedilol (Coreg Tab*) 6.25 mg PO BID [facility] Last Admin: 02/17/18 08:25 Dose: 6.25 mg Citalopram Hydrobromide (Celexa Tab*) 20 mg PO DAILY [facility] Last Admin: 02/17/18 08:26 Dose: 20 mg Clonazepam (Klonopin Tab(*)) 1 mg PO TID [facility] Last Admin: 02/17/18 14:07 Dose: 1 mg Docusate Sodium (Colace Cap*) 100 mg PO BEDTIME PRN PRN Reason: CONSTIPATION Multivitamins (Theragran Tab*) 1 tab PO DAILY [facility] Last Admin: 02/17/18 08:26 Dose: 1 tab Omeprazole (Prilosec Cap*) 20 mg PO DAILY PRN PRN Reason: DYSPEPSIA Oxybutynin Chloride (Ditropan Tab*) 5 mg PO TID [facility] Last Admin: 02/17/18 14:07 Dose: 5 mg Oxycodone HCl (Roxycodone Tab*) 5 mg PO Q8H PRN PRN Reason: PAIN Last Admin: 02/17/18 12:04 Dose: 5 mg Pharmacy Profile Note (Coumadin Per Pharmacy*) 1 note FOLLOW UP .PER PHARMACY PROTOC [facility] PRN Reason: Protocol Potassium Chloride (Klor Con Er Tab*) 20 meq PO BID [facility] Last Admin: 02/17/18 08:25 Dose: 20 meq Quetiapine Fumarate (Seroquel Xr Tab*) 150 mg PO BEDTIME [facility] Last Admin: 02/16/18 20:56 Dose: 150 mg Throat Lozenges (Chloraseptic Renzo*) 1 renzo PO Q3H PRN PRN Reason: COUGH Last Admin: 02/17/18 14:56 Dose: 1 renzo Torsemide (Demadex*) 20 mg PO BID [facility] Last Admin: 02/17/18 08:26 Dose: Not Given Warfarin Sodium (Coumadin Tab(*)) 2 mg PO 1700 ONE Stop: 02/17/18 17:01 Zolpidem Tartrate (Ambien Tab*) 10 mg PO BEDTIME PRN PRN Reason: SLEEP Last Admin: 02/15/18 23:51 Dose: 10 mg - Discharge Plan Discharge Plan: Outpatient Follow Up Outpatient Program: [facility] Additional Comments: It is possible that in addition to [facility], we will refer her to ECT at [facility].
[2018-02-17] MEDS ORDERED: Warfarin TAB(*) 2 MG PO ONE (17:00)
[2018-02-17] MEDS: Atorvastatin* 80 MG TAB PO SCH (20:59)
[2018-02-17] MEDS: QUEtiapine XR TAB* 50 MG PO SCH (20:59)
[2018-02-17] MEDS: Acetaminophen TAB* 325 MG PO PRN (21:03)
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
[2018-02-18 06:43] LABS: INR 2.19 (0.77-1.02)
[2018-02-18 06:45] LABS: Hematocrit 40 % (35-47); Hemoglobin 13.2 g/dl (12.0-16.0); Mean Platelet Volume 8.7 um3 (7.4-10.4); Platelet Count 118 10^3/ul (150-450)
[2018-02-18] MEDS: BuPROPion XL* 300 MG TAB.XL PO SCH (09:05)
[2018-02-18] MEDS: Citalopram TAB* 20 MG PO SCH (09:05)
[2018-02-18] MEDS: Oxybutynin TAB* 5 MG PO SCH ×3 (09:05→21:36)
[2018-02-18] MEDS: Vitamin THERAPEUTIC TAB PO SCH (09:05)
[2018-02-18] MEDS: Potassium Chlor TAB* 20 MEQ TAB.ER PO SCH ×2 (09:05→21:36)
[2018-02-18] MEDS: Torsemide TAB* 20 MG PO SCH ×2 (09:06→18:38)
[2018-02-18] MEDS: Carvedilol TAB* 6.25 MG PO SCH ×2 (09:06→21:37)
[2018-02-18] MEDS: buPROPion SR TAB.SR* 100 MG PO SCH (09:06)
[2018-02-18] MEDS: Aspirin EC TAB* 81 MG TAB.EC PO SCH (09:06)
[2018-02-18] MEDS: clonazePAM TAB(*) 1 MG PO SCH ×3 (09:08→21:37)
[2018-02-18] MEDS: Benzocaine/Menthol LOZ* 1 LOZENGE PO PRN (09:09)
--- NOTE | 2018-02-18 13:53 | PN ---
MHU: Group Therapy Note - Service Type Service Type: [id number] Group Psychotherapy - Cognitive Behavioral Group Therapy ( CBT):Patient was attentive and participatory in CBT programming this morning, and remained in good behavioral control. Patient expressed positive insights regarding relevant treatment interventions and goals.
--- NOTE | 2018-02-18 15:13 | PN ---
Subjective - Subjective Date of Service: 02/18/18 Service Type: 88420 Hosp care 25 min moderate complexity Subjective: Heidi has a cough today. it was treated yesterday with Cepacol losenges, but they were ineffective. We will use robitussin DM today and investigate efficacy tomorrow. Heidi is predictably grumpy, immediately disliking an option to be presented before it is even offered. Laila Crowder was also present. Both of us provided options to Heidi and both were rejected initially with dismissive disdain. Upon further consideration by heidi, she determined that she would be interested in Effexor XR 75 titrating to 225 mg, minimum and a d/c of Celexa. Laila offered new options for housing and situation. Objective - Appearance Appearance: Obese Dysmorphic Features: No Hygiene: Normal Grooming: Fairly Well Kept - Behavior Psychomotor Activities: Normal Exhibits Abnormal Movement: No - Attitude and Relatedness Attitude and Relatedness: Dismissive Eye Contact: Good - Speech Quality: Unpressured Latencies: Normal Quantity: Appropriate - Mood Patient's Decription of Mood: "Okay" - Affect Observed Affect: Constricted - Thought Process Patient's Thought Process: Coherent Thought Content: No Passive Wish, No Suicidal Planning, No Homicidal Ideation, No Paranoid Ideation - Sensorium Experiencing Hallucinations: No, Sensorium is Clear Type of Hallucinations: Visual: No, Auditory: No, Command: No - Level of Consciousness Level of Consciousness: Alert Orientation: Yes Intact, Yes Orientated to Time, Yes Orientated to Place, Yes Orientated to Person - Impulse Control Impulse Control: Intact - Insight and Judgement Insight and Judgement: Fair - Group Participation Particating in Group Activities: Yes - Medication Management Medication Management Adherence: Yes - Additional Observations Comments: Insight is limited by focus on illnesses. Although cooperative, she remains irritable. Judgment is better than insight: she is willing to listen to options and declines them all. Assessment - Assessment Merits Inpatient Hospitalization: For Stabilization Inpatient DSM-V Dx: F33.2 Clinical Impression: 72-year-old morbidly obese female who comes in with a DNR that is not active here who was sent by her therapist at [facility] as they both perceived her depression to be worsening. Here she wonders why she isn't quickly better and why her patterns have not changed: these are patterns that have not served her well and she may be amenable to changes. Plan - Plan Treatment Plan: Name: HEIDI GUTIERREZ Birthdate: 1945 [id number] Medications: Current Medications Acetaminophen (Tylenol Tab*) 650 mg PO Q4H PRN PRN Reason: PAIN or TEMP > 101 F Last Admin: 02/17/18 21:03 Dose: 650 mg Al Hydrox/Mg Hydrox/Simethicone (Maalox Plus*) 30 ml PO Q4H PRN PRN Reason: INDIGESTION Aspirin (Aspirin Ec Low Dose*) 81 mg PO DAILY [facility] Last Admin: 02/18/18 09:06 Dose: 81 mg Atorvastatin Calcium (Lipitor*) 80 mg PO BEDTIME [facility] Last Admin: 02/17/18 20:59 Dose: 80 mg Bupropion HCl (Wellbutrin Sr Tab*) 100 mg PO QAM [facility] Last Admin: 02/18/18 09:06 Dose: 100 mg Bupropion HCl (Bupropion Xl*) 300 mg PO DAILY [facility] Last Admin: 02/18/18 09:05 Dose: 300 mg Carvedilol (Coreg Tab*) 6.25 mg PO BID [facility] Last Admin: 02/18/18 09:06 Dose: 6.25 mg Clonazepam (Klonopin Tab(*)) 1 mg PO ONCE PRN PRN Reason: ANXIETY Clonazepam (Klonopin Tab(*)) 1 mg PO BID [facility] Docusate Sodium (Colace Cap*) 100 mg PO BEDTIME PRN PRN Reason: CONSTIPATION Guaifenesin/Dextromethorphan (Robitussin Dm*) 10 ml PO Q6H PRN PRN Reason: COUGH Multivitamins (Theragran Tab*) 1 tab PO DAILY [facility] Last Admin: 02/18/18 09:05 Dose: 1 tab Omeprazole (Prilosec Cap*) 20 mg PO DAILY PRN PRN Reason: DYSPEPSIA Oxybutynin Chloride (Ditropan Tab*) 5 mg PO TID [facility] Last Admin: 02/18/18 14:21 Dose: 5 mg Oxycodone HCl (Roxycodone Tab*) 5 mg PO Q8H PRN PRN Reason: PAIN Last Admin: 02/17/18 12:04 Dose: 5 mg Pharmacy Profile Note (Coumadin Per Pharmacy*) 1 note FOLLOW UP .PER PHARMACY PROTOC NELY PRN Reason: Protocol Potassium Chloride (Klor Con Er Tab*) 20 meq PO BID NELY Last Admin: 02/18/18 09:05 Dose: 20 meq Quetiapine Fumarate (Seroquel Xr Tab*) 150 mg PO BEDTIME NELY Last Admin: 02/17/18 20:59 Dose: 150 mg Torsemide (Demadex*) 20 mg PO BID NELY Last Admin: 02/18/18 09:06 Dose: Not Given Venlafaxine HCl (Effexor Xr Cap*) 75 mg PO DAILY [facility] Warfarin Sodium (Coumadin Tab(*)) 3 mg PO 1700 ONE Stop: 02/18/18 17:01 Zolpidem Tartrate (Ambien Tab*) 10 mg PO BEDTIME PRN PRN Reason: SLEEP Last Admin: 02/15/18 23:51 Dose: 10 mg - Discharge Plan Outpatient Program: [facility] Additional Comments: It is possible that in addition to [facility], we will start Effexor XR 75 mg and titrate to at least 225 mg. In addition we are looking at a new living situation for Heidi, as she is not doing particularly well where she is living.
[2018-02-18] MEDS: Venlafaxine EXT RELEASE CAP* 75 MG PO SCH (16:05)
[2018-02-18] MEDS: GuaiFENesin DM* 5 ML UDC PO PRN ×2 (16:38→22:51)
[2018-02-18] MEDS ORDERED: Warfarin TAB(*) 3 MG PO ONE (17:00)
[2018-02-18] MEDS ORDERED: Warfarin TAB(*) 3 MG PO SCH (21:00)
[2018-02-18] MEDS: QUEtiapine XR TAB* 50 MG PO SCH (21:37)
[2018-02-18] MEDS: oxyCODONE TAB* 5 MG TAB PO PRN (21:37)
[2018-02-18] MEDS: Atorvastatin* 80 MG TAB PO SCH (21:37)
[2018-02-19] MEDS ORDERED: clonazePAM TAB(*) 1 MG PO PRN (00:01)
[2018-02-19 07:39] LABS: INR 2.35 (0.77-1.02)
[2018-02-19] MEDS: Torsemide TAB* 20 MG PO SCH ×2 (07:49→15:56)
[2018-02-19] MEDS: buPROPion SR TAB.SR* 100 MG PO SCH (07:54)
[2018-02-19] MEDS: Carvedilol TAB* 6.25 MG PO SCH ×2 (07:54→21:21)
[2018-02-19] MEDS: clonazePAM TAB(*) 1 MG PO SCH ×2 (07:54→21:20)
[2018-02-19] MEDS: BuPROPion XL* 300 MG TAB.XL PO SCH (07:54)
[2018-02-19] MEDS: Aspirin EC TAB* 81 MG TAB.EC PO SCH (07:54)
[2018-02-19] MEDS: oxyCODONE TAB* 5 MG TAB PO PRN (07:55)
[2018-02-19] MEDS: Oxybutynin TAB* 5 MG PO SCH ×3 (07:55→21:20)
[2018-02-19] MEDS: Vitamin THERAPEUTIC TAB PO SCH (07:55)
[2018-02-19] MEDS: Venlafaxine EXT RELEASE CAP* 75 MG PO SCH (07:55)
[2018-02-19] MEDS: Potassium Chlor TAB* 20 MEQ TAB.ER PO SCH ×2 (07:55→21:21)
[2018-02-19] MEDS: GuaiFENesin DM* 5 ML UDC PO PRN ×3 (07:57→22:30)
--- NOTE | 2018-02-19 11:57 | PN ---
Subjective - Subjective Date of Service: 02/19/18 Service Type: [id number] Hosp care 25 min moderate complexity Subjective: Heidi was approached to see if she was ready for discharge. She stated she was not. She said that she feels like if she scratched her arm partially off, smoke would come out because she is so empty inside. We discussed her "nursiness" and how she sees many aspects of her life from the perspective of an RN. She sees many of the events in her life as failures and thinks, "If only I knew then what I know now." She is somewhat rueful about that. We discuss having a new way of thinking about her experiences, not as failures but as opportunities that she used to learn about herself and succeed in the future. She is interested in staying longer because she is still experiencing significant suicidal ideation. She was encouraged to share these feelings and thoughts with others. She would also like the opportunity to taper the Effexor up to 150 mg at least, if not 225 mg. She states the structure and the three meals a day are helpful to her. She would like to decrease Seroquel to 100 mg due to weight gain. Objective - Appearance Appearance: Obese Dysmorphic Features: No Hygiene: Mal-odorous Grooming: Disheveled - Behavior Psychomotor Activities: Normal Exhibits Abnormal Movement: No - Attitude and Relatedness Attitude and Relatedness: Needy Eye Contact: Good - Speech Quality: Unpressured Latencies: Normal Quantity: Appropriate - Mood Patient's Decription of Mood: "Okay" - Affect Observed Affect: Depressed Affect Consistent with: Dysphoria - Thought Process Patient's Thought Process: Coherent Thought Content: Yes Passive Wish, No Suicidal Planning, No Homicidal Ideation, No Paranoid Ideation - Sensorium Experiencing Hallucinations: No, Sensorium is Clear Type of Hallucinations: Visual: No, Auditory: No, Command: No - Level of Consciousness Level of Consciousness: Alert Orientation: Yes Intact, Yes Orientated to Time, Yes Orientated to Place, Yes Orientated to Person - Impulse Control Impulse Control: Intact - Insight and Judgement Insight and Judgement: Fair - Group Participation Particating in Group Activities: Yes - Medication Management Medication Management Adherence: Yes - Additional Observations Comments: Insight is limited by focus on illnesses. Although cooperative, she remains irritable. Insight is improving, although she still sees her life as a series of failures, which it clearly hasn't been. Assessment - Assessment Merits Inpatient Hospitalization: For Immediate Safety Inpatient DSM-V Dx: F33.2 Clinical Impression: 72-year-old morbidly obese female who comes in with a DNR that is not active here who was sent by her therapist at [facility] as they both perceived her depression to be worsening. Here she wonders why she isn't quickly better and why her patterns have not changed: these are patterns that have not served her well and she may be amenable to changes. She is motivated to feel better and get well, but she would prefer not to be hurried. Plan - Plan Treatment Plan: Name: HEIDI GUTIERREZ Birthdate: 1945 [id number] Continued Medication Management: Different Medication Medications: Current Medications Acetaminophen (Tylenol Tab*) 650 mg PO Q4H PRN PRN Reason: PAIN or TEMP > 101 F Last Admin: 02/17/18 21:03 Dose: 650 mg Al Hydrox/Mg Hydrox/Simethicone (Maalox Plus*) 30 ml PO Q4H PRN PRN Reason: INDIGESTION Aspirin (Aspirin Ec Low Dose*) 81 mg PO DAILY [facility] Last Admin: 02/19/18 07:54 Dose: 81 mg Atorvastatin Calcium (Lipitor*) 80 mg PO BEDTIME [facility] Last Admin: 02/18/18 21:37 Dose: 80 mg Bupropion HCl (Wellbutrin Sr Tab*) 100 mg PO QAM [facility] Last Admin: 02/19/18 07:54 Dose: 100 mg Bupropion HCl (Bupropion Xl*) 300 mg PO DAILY [facility] Last Admin: 02/19/18 07:54 Dose: 300 mg Carvedilol (Coreg Tab*) 6.25 mg PO BID [facility] Last Admin: 02/19/18 07:54 Dose: 6.25 mg Clonazepam (Klonopin Tab(*)) 1 mg PO ONCE PRN PRN Reason: ANXIETY Clonazepam (Klonopin Tab(*)) 1 mg PO BID [facility] Last Admin: 02/19/18 07:54 Dose: 1 mg Docusate Sodium (Colace Cap*) 100 mg PO BEDTIME PRN PRN Reason: CONSTIPATION Guaifenesin/Dextromethorphan (Robitussin Dm*) 10 ml PO Q6H PRN PRN Reason: COUGH Last Admin: 02/19/18 07:57 Dose: 10 ml Multivitamins (Theragran Tab*) 1 tab PO DAILY [facility] Last Admin: 02/19/18 07:55 Dose: 1 tab Omeprazole (Prilosec Cap*) 20 mg PO DAILY PRN PRN Reason: DYSPEPSIA Oxybutynin Chloride (Ditropan Tab*) 5 mg PO TID [facility] Last Admin: 02/19/18 07:55 Dose: 5 mg Oxycodone HCl (Roxycodone Tab*) 5 mg PO Q8H PRN PRN Reason: PAIN Last Admin: 02/19/18 07:55 Dose: 5 mg Pharmacy Profile Note (Coumadin Per Pharmacy*) 1 note FOLLOW UP .PER PHARMACY PROTOC [facility] PRN Reason: Protocol Potassium Chloride (Klor Con Er Tab*) 20 meq PO BID [facility] Last Admin: 02/19/18 07:55 Dose: 20 meq Quetiapine Fumarate (Seroquel Xr Tab*) 150 mg PO BEDTIME [facility] Last Admin: 02/18/18 21:37 Dose: 150 mg Torsemide (Demadex*) 20 mg PO 0700,1900 [facility] Last Admin: 02/19/18 07:49 Dose: Not Given Venlafaxine HCl (Effexor Xr Cap*) 75 mg PO DAILY [facility] Last Admin: 02/19/18 07:55 Dose: 75 mg Warfarin Sodium (Coumadin Tab(*)) 2 mg PO 1700 ONE Stop: 02/19/18 17:01 Zolpidem Tartrate (Ambien Tab*) 10 mg PO BEDTIME PRN PRN Reason: SLEEP Last Admin: 02/15/18 23:51 Dose: 10 mg - Discharge Plan Discharge Plan: Outpatient Follow Up Outpatient Program: [facility] Additional Comments: It is possible that in addition to [facility], we will start Effexor XR 75 mg and titrate to at least 225 mg. Heidi declines to move away from [facility] but states that she is interested in developing a plan for how to stay active and restart activities such as Meals on Wheels and having her FL[facility] aide come to her home again.
--- NOTE | 2018-02-19 12:02 | PN ---
MHU: Group Therapy Note - Service Type Service Type: [id number] Group Psychotherapy - Cognitive Behavioral Group Therapy ( CBT):Patient was attentive and participatory in CBT programming this morning, and remained in good behavioral control. Patient expressed positive insights regarding relevant treatment interventions and goals.
[2018-02-19] MEDS: Acetaminophen TAB* 325 MG PO PRN (15:55)
[2018-02-19] MEDS ORDERED: Warfarin TAB(*) 2 MG PO ONE (17:00)
[2018-02-19] MEDS ORDERED: Warfarin TAB(*) 2 MG PO SCH (21:00)
[2018-02-19] MEDS: QUEtiapine TAB* 100 MG PO SCH (21:20)
[2018-02-19] MEDS: Atorvastatin* 80 MG TAB PO SCH (21:20)
[2018-02-20] MEDS: oxyCODONE TAB* 5 MG TAB PO PRN ×2 (01:05→13:53)
[2018-02-20] MEDS: GuaiFENesin DM* 5 ML UDC PO PRN ×2 (08:31→21:07)
[2018-02-20] MEDS: Potassium Chlor TAB* 20 MEQ TAB.ER PO SCH ×2 (08:34→21:03)
[2018-02-20] MEDS: buPROPion SR TAB.SR* 100 MG PO SCH (08:34)
[2018-02-20] MEDS: Oxybutynin TAB* 5 MG PO SCH ×3 (08:34→21:03)
[2018-02-20] MEDS: Aspirin EC TAB* 81 MG TAB.EC PO SCH (08:35)
[2018-02-20] MEDS: Carvedilol TAB* 6.25 MG PO SCH ×2 (08:35→21:03)
[2018-02-20] MEDS: BuPROPion XL* 300 MG TAB.XL PO SCH (08:35)
[2018-02-20] MEDS: Vitamin THERAPEUTIC TAB PO SCH (08:36)
[2018-02-20] MEDS: Acetaminophen TAB* 325 MG PO PRN ×2 (08:36→21:03)
[2018-02-20] MEDS: Venlafaxine EXT RELEASE CAP* 75 MG PO SCH (08:36)
[2018-02-20] MEDS: clonazePAM TAB(*) 1 MG PO SCH ×2 (08:36→21:03)
[2018-02-20] MEDS: Torsemide TAB* 20 MG PO SCH ×2 (10:06→16:22)
[2018-02-20 13:12] LABS: INR 2.08 (0.77-1.02)
[2018-02-20] MEDS ORDERED: Warfarin TAB(*) 3 MG PO ONE (17:00)
[2018-02-20] MEDS: Atorvastatin* 80 MG TAB PO SCH (21:03)
[2018-02-20] MEDS: QUEtiapine TAB* 100 MG PO SCH (21:03)
[2018-02-21] MEDS: Oxybutynin TAB* 5 MG PO SCH ×3 (09:21→21:09)
[2018-02-21] MEDS: clonazePAM TAB(*) 1 MG PO SCH ×2 (09:21→21:09)
[2018-02-21] MEDS: Potassium Chlor TAB* 20 MEQ TAB.ER PO SCH ×2 (09:21→21:09)
[2018-02-21] MEDS: Venlafaxine EXT RELEASE CAP* 75 MG PO SCH (09:21)
[2018-02-21] MEDS: BuPROPion XL* 300 MG TAB.XL PO SCH (09:21)
[2018-02-21] MEDS: Vitamin THERAPEUTIC TAB PO SCH (09:21)
[2018-02-21] MEDS: Aspirin EC TAB* 81 MG TAB.EC PO SCH (09:21)
[2018-02-21] MEDS: buPROPion SR TAB.SR* 100 MG PO SCH (09:21)
[2018-02-21] MEDS: Carvedilol TAB* 6.25 MG PO SCH ×2 (09:22→21:09)
[2018-02-21] MEDS: Torsemide TAB* 20 MG PO SCH ×2 (09:24→15:57)
[2018-02-21 11:45] LABS: INR 2.33 (0.77-1.02)
[2018-02-21] MEDS: GuaiFENesin DM* 5 ML UDC PO PRN ×2 (14:06→21:14)
--- NOTE | 2018-02-21 16:41 | PN ---
Subjective - Subjective Date of Service: 02/21/18 Service Type: 13513 Hosp care 15 min low complexity Subjective: Saw Heidi in her room sitting on he special wheel chair. As soon as I entered the room Heidi started coughing. She has been complaining of dry cough and we have done a throat swab and sent it to the lab for testing. Her vital including Temp are WNL. Cough syrup given as needed and will continue to monitor. Otherwise didn' appear to be in any distress or complain any psychiatric problems. Objective - Appearance Appearance: Obese Dysmorphic Features: No Hygiene: Normal Grooming: Fairly Well Kept - Behavior Psychomotor Activities: Normal Exhibits Abnormal Movement: No - Attitude and Relatedness Attitude and Relatedness: Appropriate Eye Contact: Good - Speech Quality: Unpressured Latencies: Normal Quantity: Appropriate - Mood Patient's Decription of Mood: "Anxious" - Affect Observed Affect: Fair - Thought Process Patient's Thought Process: Coherent, Goal Directed Thought Content: No Passive Wish, No Suicidal Planning, No Homicidal Ideation, No Paranoid Ideation - Sensorium Experiencing Hallucinations: No, Sensorium is Clear Type of Hallucinations: Visual: No, Auditory: No, Command: No - Level of Consciousness Level of Consciousness: Alert Orientation: Yes Intact, Yes Orientated to Time, Yes Orientated to Place, Yes Orientated to Person - Impulse Control Impulse Control: Intact - Insight and Judgement Insight and Judgement: Poor - Group Participation Particating in Group Activities: No - Medication Management Medication Management Adherence: Yes Assessment - Assessment Merits Inpatient Hospitalization: For Immediate Safety, For Ongoing Evaluation, Pending Safe DC Plan Inpatient DSM-V Dx: F33.2 Clinical Impression: Need continuous care for both physical and psychiatric reasons. Plan - Plan Treatment Plan: Name: HEIDI GUTIERREZ Birthdate: 1945 [id number] Continued Medication Management: Continue Outpt Medication Medications: Current Medications Acetaminophen (Tylenol Tab*) 650 mg PO Q4H PRN PRN Reason: PAIN or TEMP > 101 F Last Admin: 02/20/18 21:03 Dose: 650 mg Al Hydrox/Mg Hydrox/Simethicone (Maalox Plus*) 30 ml PO Q4H PRN PRN Reason: INDIGESTION Aspirin (Aspirin Ec Low Dose*) 81 mg PO DAILY [facility] Last Admin: 02/21/18 09:21 Dose: 81 mg Atorvastatin Calcium (Lipitor*) 80 mg PO BEDTIME [facility] Last Admin: 02/20/18 21:03 Dose: 80 mg Bupropion HCl (Wellbutrin Sr Tab*) 100 mg PO QAM [facility] Last Admin: 02/21/18 09:21 Dose: 100 mg Bupropion HCl (Bupropion Xl*) 300 mg PO DAILY [facility] Last Admin: 02/21/18 09:21 Dose: 300 mg Carvedilol (Coreg Tab*) 6.25 mg PO BID [facility] Last Admin: 02/21/18 09:22 Dose: 6.25 mg Clonazepam (Klonopin Tab(*)) 1 mg PO ONCE PRN PRN Reason: ANXIETY Clonazepam (Klonopin Tab(*)) 1 mg PO BID [facility] Last Admin: 02/21/18 09:21 Dose: 1 mg Docusate Sodium (Colace Cap*) 100 mg PO BEDTIME PRN PRN Reason: CONSTIPATION Guaifenesin/Dextromethorphan (Robitussin Dm*) 10 ml PO Q6H PRN PRN Reason: COUGH Last Admin: 02/21/18 14:06 Dose: 10 ml Multivitamins (Theragran Tab*) 1 tab PO DAILY [facility] Last Admin: 02/21/18 09:21 Dose: 1 tab Nystatin (Nystatin Top Powder*) 1 applic TOPICAL BID [facility] Omeprazole (Prilosec Cap*) 20 mg PO DAILY PRN PRN Reason: DYSPEPSIA Oxybutynin Chloride (Ditropan Tab*) 5 mg PO TID [facility] Last Admin: 02/21/18 14:06 Dose: 5 mg Oxycodone HCl (Roxycodone Tab*) 5 mg PO Q8H PRN PRN Reason: PAIN Last Admin: 02/20/18 13:53 Dose: 5 mg Pharmacy Profile Note (Coumadin Per Pharmacy*) 1 note FOLLOW UP .PER PHARMACY PROTOC [facility] PRN Reason: Protocol Potassium Chloride (Klor Con Er Tab*) 20 meq PO BID [facility] Last Admin: 02/21/18 09:21 Dose: 20 meq Quetiapine Fumarate (Seroquel Tab*) 100 mg PO BEDTIME [facility] Last Admin: 02/20/18 21:03 Dose: 100 mg Torsemide (Demadex*) 20 mg PO 0700,1600 [facility] Last Admin: 02/21/18 15:57 Dose: 20 mg Venlafaxine HCl (Effexor Xr Cap*) 150 mg PO DAILY [facility] Last Admin: 02/21/18 09:21 Dose: 150 mg Warfarin Sodium (Coumadin Tab(*)) 2 mg PO 1700 [facility] Stop: 02/21/18 17:01 Zolpidem Tartrate (Ambien Tab*) 10 mg PO BEDTIME PRN PRN Reason: SLEEP Last Admin: 02/15/18 23:51 Dose: 10 mg - Discharge Plan Discharge Plan: Inpatient Hospitalization Outpatient Program: [facility]
[2018-02-21] MEDS ORDERED: Warfarin TAB(*) 2 MG PO SCH (17:00)
[2018-02-21] MEDS: QUEtiapine TAB* 100 MG PO SCH (21:09)
[2018-02-21] MEDS: Atorvastatin* 80 MG TAB PO SCH (21:09)
[2018-02-21] MEDS: oxyCODONE TAB* 5 MG TAB PO PRN (21:14)
[2018-02-22] MEDS: Nystatin TOP POWDER* 15 GM BTL TOPICAL SCH ×3 (01:25→20:30)
[2018-02-22] MEDS: buPROPion SR TAB.SR* 100 MG PO SCH (09:09)
[2018-02-22] MEDS: Vitamin THERAPEUTIC TAB PO SCH (09:09)
[2018-02-22] MEDS: clonazePAM TAB(*) 1 MG PO SCH ×2 (09:09→20:28)
[2018-02-22] MEDS: Aspirin EC TAB* 81 MG TAB.EC PO SCH (09:09)
[2018-02-22] MEDS: Potassium Chlor TAB* 20 MEQ TAB.ER PO SCH ×2 (09:09→20:28)
[2018-02-22] MEDS: Torsemide TAB* 20 MG PO SCH ×2 (09:09→16:57)
[2018-02-22] MEDS: Venlafaxine EXT RELEASE CAP* 75 MG PO SCH (09:10)
[2018-02-22] MEDS: BuPROPion XL* 300 MG TAB.XL PO SCH (09:10)
[2018-02-22] MEDS: Oxybutynin TAB* 5 MG PO SCH ×3 (09:10→20:28)
[2018-02-22] MEDS: Carvedilol TAB* 6.25 MG PO SCH ×2 (09:10→20:28)
[2018-02-22] MEDS: GuaiFENesin DM* 5 ML UDC PO PRN ×2 (09:11→20:31)
[2018-02-22] MEDS: oxyCODONE TAB* 5 MG TAB PO PRN (09:12)
[2018-02-22 09:31] LABS: Hematocrit 46 % (35-47); Hemoglobin 14.8 g/dl (12.0-16.0); Mean Platelet Volume 8.6 um3 (7.4-10.4); Platelet Count 135 10^3/ul (150-450)
[2018-02-22 09:39] LABS: INR 2.36 (0.77-1.02)
[2018-02-22 09:46] LABS: EGFR Non-African American 51.8 (>60)
--- NOTE | 2018-02-22 14:59 | RAD ---
INDICATION: Cough COMPARISON: June 10, 2016 TECHNIQUE: PA and lateral dual-energy views were obtained. FINDINGS: Bones/Soft Tissues: There are no acute bony findings. There is sternotomy. There is prior mitral valvular surgery Cardiomediastinal: The cardiomediastinal silhouette is normal. Lungs: There are no infiltrates. There is minor volume loss left lung base. Pleura: Minor chronic blunting left costophrenic angle. Other: None IMPRESSION: POSTOPERATIVE CHANGES. NO ACTIVE DISEASE.
--- NOTE | 2018-02-22 15:14 | PN ---
Subjective - Subjective Date of Service: 02/22/18 Service Type: [id number] Hosp care 35 min high complexity Subjective: Heidi is concerned about her cough, which has been building since . We obtain a chest x-ray and phone the hospitalist. Heidi also feels "blah" and we discuss that Effexor XR may have this temporary effect until she stabilizes on a higher dose for a week or two. Concerns are related generally to her physical health. She has a yeast infection in the folds of her abdomen at this time due, she states, to not having her personal hygiene as comprehensive as it usually is. She does not specifically endorse suicide today, but she also cannot eliminate it as an option. Objective - Appearance Appearance: Obese Dysmorphic Features: No Hygiene: Mal-odorous Grooming: Disheveled - Behavior Psychomotor Activities: Normal Exhibits Abnormal Movement: No - Attitude and Relatedness Attitude and Relatedness: Needy Eye Contact: Good - Speech Quality: Unpressured Latencies: Normal Quantity: Appropriate - Mood Patient's Decription of Mood: "Fine" - Affect Observed Affect: Fair Affect Consistent with: Dysphoria - Thought Process Patient's Thought Process: Goal Directed Thought Content: No Passive Wish, No Suicidal Planning, No Homicidal Ideation, No Paranoid Ideation - Sensorium Experiencing Hallucinations: No, Sensorium is Clear Type of Hallucinations: Visual: No, Auditory: No, Command: No - Level of Consciousness Level of Consciousness: Alert Orientation: Yes Intact, Yes Orientated to Time, Yes Orientated to Place, Yes Orientated to Person - Impulse Control Impulse Control: Intact - Insight and Judgement Insight and Judgement: Good - Group Participation Particating in Group Activities: Yes - Medication Management Medication Management Adherence: Yes - Additional Observations Comments: Insight is limited by focus on illnesses. Although cooperative, she remains irritable. Insight is improving, although she still sees her life as a series of failures, which it clearly hasn't been. Further illness, her cough for example, are continuing to reduce her insight. Assessment - Assessment Merits Inpatient Hospitalization: For Stabilization Inpatient DSM-V Dx: F33.2 Clinical Impression: 72-year-old morbidly obese female who comes in with a DNR that is not active here who was sent by her therapist at [facility] as they both perceived her depression to be worsening. Here she wonders why she isn't quickly better and why her patterns have not changed: these are patterns that have not served her well and she may be amenable to changes. She is motivated to feel better and get well, but she would prefer not to be hurried. Plan - Plan Treatment Plan: Name: HEIDI GUTIERREZ Birthdate: 1945 [id number] Medications: Current Medications Acetaminophen (Tylenol Tab*) 650 mg PO Q4H PRN PRN Reason: PAIN or TEMP > 101 F Last Admin: 02/20/18 21:03 Dose: 650 mg Al Hydrox/Mg Hydrox/Simethicone (Maalox Plus*) 30 ml PO Q4H PRN PRN Reason: INDIGESTION Aspirin (Aspirin Ec Low Dose*) 81 mg PO DAILY [facility] Last Admin: 02/22/18 09:09 Dose: 81 mg Atorvastatin Calcium (Lipitor*) 80 mg PO BEDTIME [facility] Last Admin: 02/21/18 21:09 Dose: 80 mg Bupropion HCl (Wellbutrin Sr Tab*) 100 mg PO QAM [facility] Last Admin: 02/22/18 09:09 Dose: 100 mg Bupropion HCl (Bupropion Xl*) 300 mg PO DAILY [facility] Last Admin: 02/22/18 09:10 Dose: 300 mg Carvedilol (Coreg Tab*) 6.25 mg PO BID [facility] Last Admin: 02/22/18 09:10 Dose: 6.25 mg Clonazepam (Klonopin Tab(*)) 1 mg PO ONCE PRN PRN Reason: ANXIETY Clonazepam (Klonopin Tab(*)) 1 mg PO BID [facility] Last Admin: 02/22/18 09:09 Dose: 1 mg Docusate Sodium (Colace Cap*) 100 mg PO BEDTIME PRN PRN Reason: CONSTIPATION Guaifenesin/Dextromethorphan (Robitussin Dm*) 10 ml PO Q6H PRN PRN Reason: COUGH Last Admin: 02/22/18 09:11 Dose: 10 ml Multivitamins (Theragran Tab*) 1 tab PO DAILY [facility] Last Admin: 02/22/18 09:09 Dose: 1 tab Nystatin (Nystatin Top Powder*) 1 applic TOPICAL BID [facility] Last Admin: 02/22/18 09:13 Dose: 1 applic Omeprazole (Prilosec Cap*) 20 mg PO DAILY PRN PRN Reason: DYSPEPSIA Oxybutynin Chloride (Ditropan Tab*) 5 mg PO TID [facility] Last Admin: 02/22/18 13:57 Dose: 5 mg Oxycodone HCl (Roxycodone Tab*) 5 mg PO Q8H PRN PRN Reason: PAIN Last Admin: 02/22/18 09:12 Dose: 5 mg Pharmacy Profile Note (Coumadin Per Pharmacy*) 1 note FOLLOW UP .PER PHARMACY PROTOC [facility] PRN Reason: Protocol Potassium Chloride (Klor Con Er Tab*) 20 meq PO BID [facility] Last Admin: 02/22/18 09:09 Dose: 20 meq Quetiapine Fumarate (Seroquel Tab*) 100 mg PO BEDTIME [facility] Last Admin: 02/21/18 21:09 Dose: 100 mg Torsemide (Demadex*) 20 mg PO 0700,1600 [facility] Last Admin: 02/22/18 09:09 Dose: Not Given Venlafaxine HCl (Effexor Xr Cap*) 150 mg PO DAILY [facility] Last Admin: 02/22/18 09:10 Dose: 150 mg Warfarin Sodium (Coumadin Tab(*)) 3 mg PO 1700 [facility] Stop: 02/22/18 17:01 Zolpidem Tartrate (Ambien Tab*) 10 mg PO BEDTIME PRN PRN Reason: SLEEP Last Admin: 02/15/18 23:51 Dose: 10 mg - Discharge Plan [facility]patient Program: [facility] Additional Comments: It is possible that in addition to [facility], we will continue Effexor XR 150 mg and titrate to at least 225 mg. Heidi declines to move away from [facility] but states that she is interested in developing a plan for how to stay active and restart activities such as Meals on Wheels and having her FL[facility] aide come to her home again. Encouraging and motivating Heidi may be our most reliable way to achieve successful discharge.
[2018-02-22] MEDS ORDERED: Warfarin TAB(*) 3 MG PO ONE (17:00)
[2018-02-22] MEDS: QUEtiapine TAB* 100 MG PO SCH (20:28)
[2018-02-22] MEDS: Amoxicillin/Clavulanate TAB* 500 MG PO SCH (20:28)
[2018-02-22] MEDS: Atorvastatin* 80 MG TAB PO SCH (20:28)
--- NOTE | 2018-02-22 20:55 | CONS ---
CONSULTATION REPORT: DATE OF CONSULT: 02/22/18 TIME OF EVALUATION: 04:30 p.m. REQUESTING SERVICE: Arianna Craft, Psychiatry. CHIEF COMPLAINT: Cough. HISTORY OF PRESENT ILLNESS: This is a 72-year-old female with a history of a mechanical mitral valve and depression,who is currently admitted to the [facility] for suicidal ideation and major depressive disorder. She is being treated with bupropion, Klonopin, venlafaxine, quetiapine in addition to her regular medical regimen. I was asked to see her for a cough that has been going on for 6 days. Ms. Espinoza complains of a persistent dry cough that began 5 to 6 days ago and progressively gotten worse. She denies any sputum or fevers. She has not had indigestion or heartburn. She has no history of asthma. She has no sore throat , congestion, rhinorrhea, headache, shortness of breath, chest pain, orthopnea, weight changes, diarrhea or body and muscle aches. She states she otherwise feels very well, but the cough has been very bothersome. It is unchanged with position. It is unchanged with eating. It is unchanged with ambulation. PAST MEDICAL HISTORY: 1. 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 2. Osteoarthritis. 3. Major depressive disorder. 4. Chronic pain syndrome, on narcotics. 5. Chronic diastolic heart failure. SOCIAL HISTORY: She lives alone in an assisted living facility. She does not smoke. Has never been a smoker. She does not drink alcohol and she does not use any illicit drugs. 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 REVIEW OF SYSTEMS: As per HPI. The remainder of the 14 point review of systems is negative. PHYSICAL EXAM: Temperature 98.5, heart rate 98, respiratory rate 16, pulse ox 95% on room air, and blood pressure 110/89. General: Alert, obese female, in no distress, resting in her room. Her affect is pleasant, and appropriate. HEENT: Pupils are 3 mm bilaterally and reactive to light. She has no conjunctival injection. No sinus tenderness. No mucosal congestion. No pharyngeal exudates or erythema. Neck: No cervical lymphadenopathy. Chest: Regular rate and rhythm with a mechanical click at the left upper sternal border and left lower sternal border. Her PMI is nondisplaced. Her lungs are clear bilaterally, though she does cough frequently throughout my exam. Abdomen is obese with a large pendulous pannus. Extremities: Trace lower extremity edema bilaterally. DIAGNOSTIC STUDIES/LAB DATA: Imaging: Chest x-ray today shows postoperative changes and no active disease. ASSESSMENT AND PLAN: This is a 72-year-old female with a history of mechanical mitral valve placed in 2009, who is admitted to [facility] for major depressive disorder with suicidal ideation, who we are asked to see today in consultation for a cough for 6 days. 1. Acute bronchitis. She has no indication of a pneumonia or other etiologies of a cough. She is not on any medications that would contribute to a cough. I agree with your treatment with guaifenesin and dextromethorphan. She takes oxycodone chronically, but has not been taking any here or so she may benefit from a trial of guaifenesin with codeine syrup given the persistence of her symptoms. Also, in addition to her being currently hospitalized and having a mechanical mitral valve, it would not be unreasonable to treat her with a 5-day course of Augmentin. 2. Mechanical mitral valve. Her INR goal should be 2.5 to 3.5; however, I note that her INR has been therapeutic during her hospitalization here. Her warfarin is being titrated by pharmacy, so I will touch-base with them about this. 3. Major depressive disorder with suicidal ideation. Continue inpatient psychiatric treatment as per the psychiatrist. Thank you for allowing me to participate in the care of this patient. We will continue to follow along with you. [id number]/CPS #: [id number] MTDD
[2018-02-23] MEDS: GuaiFENesin DM* 5 ML UDC PO PRN (02:05)
[2018-02-23 08:05] LABS: INR 2.82 (0.77-1.02)
[2018-02-23] MEDS: Torsemide TAB* 20 MG PO SCH ×2 (09:14→16:28)
[2018-02-23] MEDS: Vitamin THERAPEUTIC TAB PO SCH (09:15)
[2018-02-23] MEDS: buPROPion SR TAB.SR* 100 MG PO SCH (09:15)
[2018-02-23] MEDS: Aspirin EC TAB* 81 MG TAB.EC PO SCH (09:15)
[2018-02-23] MEDS: Amoxicillin/Clavulanate TAB* 500 MG PO SCH ×2 (09:16→20:46)
[2018-02-23] MEDS: clonazePAM TAB(*) 1 MG PO SCH ×2 (09:16→20:46)
[2018-02-23] MEDS: BuPROPion XL* 300 MG TAB.XL PO SCH (09:16)
[2018-02-23] MEDS: Carvedilol TAB* 6.25 MG PO SCH ×2 (09:17→20:46)
[2018-02-23] MEDS: Venlafaxine EXT RELEASE CAP* 75 MG PO SCH (09:17)
[2018-02-23] MEDS: Potassium Chlor TAB* 20 MEQ TAB.ER PO SCH ×2 (09:17→20:46)
[2018-02-23] MEDS: Oxybutynin TAB* 5 MG PO SCH ×3 (09:18→20:47)
[2018-02-23] MEDS: Nystatin TOP POWDER* 15 GM BTL TOPICAL SCH ×2 (09:19→20:47)
[2018-02-23] MEDS ORDERED: oxyCODONE TAB* 5 MG TAB PO PRN (09:20)
[2018-02-23] MEDS ORDERED: Zolpidem TAB* 10 MG PO PRN (09:20)
[2018-02-23] MEDS: guaiFENesin/CODIEN 100MG-10MG* 5 ML UDC PO PRN ×2 (13:35→20:56)
--- NOTE | 2018-02-23 14:25 | PN ---
Subjective - Subjective Date of Service: 02/23/18 Service Type: [id number] Hosp care 35 min high complexity Subjective: Heidi spends a lot of time discussing her litany of complaints about how things are not handled here the way they "should be." We discuss this rigidity of thought as a thing that has worked against her in the past has worked well for her at other times during her lifetime. We discuss Sal and the idea that she needs to choose not to despair if she is to change. We further discussed her physical complaints. She states she isn't getting what she wanted out of her stay here because her cold has cast a pall over her visit. We are more aggressively treating her pain and cough. It is hopeful that she will be able to focus more on her mental health than her physical health and the deficits of the hospital. Objective - Appearance Appearance: Obese Dysmorphic Features: No Hygiene: Normal Grooming: Disheveled - Behavior Exhibits Abnormal Movement: No - Attitude and Relatedness Attitude and Relatedness: Irritable Eye Contact: Good - Speech Quality: Unpressured Latencies: Normal Quantity: Appropriate - Mood Patient's Decription of Mood: "Irritable" - Affect Observed Affect: Depressed Affect Consistent with: Dysphoria - Thought Process Patient's Thought Process: Coherent Thought Content: No Passive Wish, No Suicidal Planning, No Homicidal Ideation, No Paranoid Ideation - Sensorium Experiencing Hallucinations: No, Sensorium is Clear Type of Hallucinations: Visual: No, Auditory: No, Command: No - Level of Consciousness Level of Consciousness: Alert Orientation: Yes Intact, Yes Orientated to Time, Yes Orientated to Place, Yes Orientated to Person - Impulse Control Impulse Control: Impaired - Insight and Judgement Insight and Judgement: Impaired - Group Participation Particating in Group Activities: Yes - Medication Management Medication Management Adherence: Yes - Additional Observations Comments: Insight is limited by focus on illnesses. Although cooperative, she remains irritable. Insight is improving, although she still sees her life as a series of failures, which it clearly hasn't been. Further illness, her cough for example, are continuing to reduce her insight and ability to take responsibility for her own mental health. Assessment - Assessment Merits Inpatient Hospitalization: For Immediate Safety Inpatient DSM-V Dx: F33.2 Clinical Impression: 72-year-old morbidly obese female who comes in with a DNR that is not active here who was sent by her therapist at [facility] as they both perceived her depression to be worsening. Here she wonders why she isn't quickly better and why her patterns have not changed: these are patterns that have not served her well and she may be amenable to changes. She is motivated to feel better and get well, but she would prefer not to be hurried. Today's focus has remained on her physical self. Plan - Plan Treatment Plan: Name: HEIDI GUTIERREZ Birthdate: 1945 [id number] Medications: Current Medications Acetaminophen (Tylenol Tab*) 650 mg PO Q4H PRN PRN Reason: PAIN or TEMP > 101 F Last Admin: 02/20/18 21:03 Dose: 650 mg Al Hydrox/Mg Hydrox/Simethicone (Maalox Plus*) 30 ml PO Q4H PRN PRN Reason: INDIGESTION Amoxicillin/Clavulanate Potassium (Augmentin Tab*) 500 mg PO BID [facility] Stop: 02/27/18 20:59 Last Admin: 02/23/18 09:16 Dose: 500 mg Aspirin (Aspirin Ec Low Dose*) 81 mg PO DAILY [facility] Last Admin: 02/23/18 09:15 Dose: 81 mg Atorvastatin Calcium (Lipitor*) 80 mg PO BEDTIME [facility] Last Admin: 02/22/18 20:28 Dose: 80 mg Bupropion HCl (Wellbutrin Sr Tab*) 100 mg PO QAM [facility] Last Admin: 02/23/18 09:15 Dose: 100 mg Bupropion HCl (Bupropion Xl*) 300 mg PO DAILY [facility] Last Admin: 02/23/18 09:16 Dose: 300 mg Carvedilol (Coreg Tab*) 6.25 mg PO BID [facility] Last Admin: 02/23/18 09:17 Dose: 6.25 mg Clonazepam (Klonopin Tab(*)) 1 mg PO ONCE PRN PRN Reason: ANXIETY Clonazepam (Klonopin Tab(*)) 1 mg PO BID [facility] Last Admin: 02/23/18 09:16 Dose: 1 mg Docusate Sodium (Colace Cap*) 100 mg PO BEDTIME PRN PRN Reason: CONSTIPATION Guaifenesin/Codeine Phosphate (Robitussin Ac 100mg-10mg*) 5 ml PO Q4H PRN PRN Reason: COUGH Last Admin: 02/23/18 13:35 Dose: 5 ml Multivitamins (Theragran Tab*) 1 tab PO DAILY [facility] Last Admin: 02/23/18 09:15 Dose: 1 tab Nystatin (Nystatin Top Powder*) 1 applic TOPICAL BID [facility] Last Admin: 02/23/18 09:19 Dose: 1 applic Omeprazole (Prilosec Cap*) 20 mg PO DAILY PRN PRN Reason: DYSPEPSIA Oxybutynin Chloride (Ditropan Tab*) 5 mg PO TID [facility] Last Admin: 02/23/18 13:35 Dose: 5 mg Oxycodone HCl (Roxycodone Tab*) 5 mg PO Q8H PRN PRN Reason: PAIN Pharmacy Profile Note (Coumadin Per Pharmacy*) 1 note FOLLOW UP .PER PHARMACY PROTOC [facility] PRN Reason: Protocol Potassium Chloride (Klor Con Er Tab*) 20 meq PO BID [facility] Last Admin: 02/23/18 09:17 Dose: 20 meq Quetiapine Fumarate (Seroquel Tab*) 100 mg PO BEDTIME [facility] Last Admin: 02/22/18 20:28 Dose: 100 mg Torsemide (Demadex*) 20 mg PO 0700,1600 [facility] Last Admin: 02/23/18 09:14 Dose: Not Given Venlafaxine HCl (Effexor Xr Cap*) 150 mg PO DAILY [facility] Last Admin: 02/23/18 09:17 Dose: 150 mg Zolpidem Tartrate (Ambien Tab*) 10 mg PO BEDTIME PRN PRN Reason: SLEEP - Discharge Plan Additional Comments: It is possible that in addition to [facility], we will continue Effexor XR 150 mg and titrate to at least 225 mg. Heidi declines to move away from [facility] but states that she is interested in developing a plan for how to stay active and restart activities such as Meals on Wheels and having her [facility] aide come to her home again. Encouraging and motivating Heidi may be our most reliable way to achieve successful discharge. Today she was given an activity list for [facility] and [employer]. Further she contemplated using the bus on her own and asking for help with organizing her transportation.
[2018-02-23] MEDS ORDERED: Warfarin TAB(*) 2 MG PO ONE (17:00)
--- NOTE | 2018-02-23 17:33 | PN ---
Subjective Date of Service: 02/23/18 Interval History: Patient seen and examined. No acute overnight events. Still has dry cough, but feels it may be somewhat better. She is happy atbx were started and is taking the cough medicine. No further complaints of fever, fatigue, chills, n/v. Objective Active Medications: Acetaminophen (Tylenol Tab*) 650 mg PO Q4H PRN PRN Reason: PAIN or TEMP > 101 F Last Admin: 02/20/18 21:03 Dose: 650 mg Al Hydrox/Mg Hydrox/Simethicone (Maalox Plus*) 30 ml PO Q4H PRN PRN Reason: INDIGESTION Amoxicillin/Clavulanate Potassium (Augmentin Tab*) 500 mg PO BID [facility] Stop: 02/27/18 20:59 Last Admin: 02/23/18 09:16 Dose: 500 mg Aspirin (Aspirin Ec Low Dose*) 81 mg PO DAILY [facility] Last Admin: 02/23/18 09:15 Dose: 81 mg Atorvastatin Calcium (Lipitor*) 80 mg PO BEDTIME [facility] Last Admin: 02/22/18 20:28 Dose: 80 mg Bupropion HCl (Wellbutrin Sr Tab*) 100 mg PO QAM [facility] Last Admin: 02/23/18 09:15 Dose: 100 mg Bupropion HCl (Bupropion Xl*) 300 mg PO DAILY [facility] Last Admin: 02/23/18 09:16 Dose: 300 mg Carvedilol (Coreg Tab*) 6.25 mg PO BID [facility] Last Admin: 02/23/18 09:17 Dose: 6.25 mg Clonazepam (Klonopin Tab(*)) 1 mg PO ONCE PRN PRN Reason: ANXIETY Clonazepam (Klonopin Tab(*)) 1 mg PO BID [facility] Last Admin: 02/23/18 09:16 Dose: 1 mg Docusate Sodium (Colace Cap*) 100 mg PO BEDTIME PRN PRN Reason: CONSTIPATION Guaifenesin/Codeine Phosphate (Robitussin Ac 100mg-10mg*) 5 ml PO Q4H PRN PRN Reason: COUGH Last Admin: 02/23/18 13:35 Dose: 5 ml Multivitamins (Theragran Tab*) 1 tab PO DAILY [facility] Last Admin: 02/23/18 09:15 Dose: 1 tab Nystatin (Nystatin Top Powder*) 1 applic TOPICAL BID [facility] Last Admin: 02/23/18 09:19 Dose: 1 applic Omeprazole (Prilosec Cap*) 20 mg PO DAILY PRN PRN Reason: DYSPEPSIA Oxybutynin Chloride (Ditropan Tab*) 5 mg PO TID [facility] Last Admin: 02/23/18 13:35 Dose: 5 mg Oxycodone HCl (Roxycodone Tab*) 5 mg PO Q8H PRN PRN Reason: PAIN Pharmacy Profile Note (Coumadin Per Pharmacy*) 1 note FOLLOW UP .PER PHARMACY PROTOC [facility] PRN Reason: Protocol Potassium Chloride (Klor Con Er Tab*) 20 meq PO BID [facility] Last Admin: 02/23/18 09:17 Dose: 20 meq Quetiapine Fumarate (Seroquel Tab*) 100 mg PO BEDTIME [facility] Last Admin: 02/22/18 20:28 Dose: 100 mg Torsemide (Demadex*) 20 mg PO 0700,1600 [facility] Last Admin: 02/23/18 16:28 Dose: 20 mg Venlafaxine HCl (Effexor Xr Cap*) 150 mg PO DAILY [facility] Last Admin: 02/23/18 09:17 Dose: 150 mg Zolpidem Tartrate (Ambien Tab*) 10 mg PO BEDTIME PRN PRN Reason: SLEEP Vital Signs - 8 hr 02/23/18 02/23/18 11:02 12:28 Respiratory 16 14 Rate Oxygen Devices in Use Now: None Appearance: Alert, disheveled, NAD Eyes: PERRLA Ears/Nose/Mouth/Throat: NL Teeth, Lips, Gums, Mucous Membranes Moist Neck: NL Appearance and Movements; NL JVP, Trachea Midline Respiratory: Symmetrical Chest Expansion and Respiratory Effort, Clear to Auscultation Cardiovascular: NL Sounds; No Murmurs; No JVD, RRR, No Edema Neurological: Alert and Oriented x 3, - - uses walker Nutrition: Taking PO's Result Diagrams: 02/22/18 09:19 02/22/18 09:19 Additional Lab and Data: Lab Results 02/15/18 02/15/18 02/15/18 Range/Units 12:15 12:15 12:40 WBC (3.5-10.8) 10^3/ul RBC (4.0-5.4) 10^6/ul Hgb (12.0-16.0) g/dl Hct (35-47) % MCV (80-97) fL MCH (27-31) pg MCHC (31-36) g/dl RDW (10.5-15) % Plt Count (150-450) 10^3/ul MPV (7.4-10.4) um3 Neut % (Auto) (38-83) % Lymph % (Auto) (25-47) % [place] % (Auto) (0-7) % Eos % (Auto) (0-6) % Baso % (Auto) (0-2) % Absolute Neuts (auto) (1.5-7.7) 10^3/ul Absolute Lymphs (auto) (1.0-4.8) 10^3/ul Absolute Monos (auto) (0-0.8) 10^3/ul Absolute Eos (auto) (0-0.6) 10^3/ul Absolute Basos (auto) (0-0.2) 10^3/ul Absolute Nucleated RBC 10^3/ul Nucleated RBC % INR (Anticoag Therapy) (0.77-1.02) APTT (26.0-36.3) seconds Sodium 138 (133-145) mmol/L Potassium 4.1 (3.5-5.0) mmol/L Chloride 104 (101-111) mmol/L Carbon Dioxide 28 (22-32) mmol/L Anion Gap 6 (2-11) mmol/L BUN 22 (6-24) mg/dL Creatinine 0.73 (0.51-0.95) mg/dL Est GFR ( Amer) 101.4 (>60) Est GFR (Non-Af Amer) 78.8 (>60) BUN/Creatinine Ratio 30.1 H (8-20) Glucose 83 (70-100) mg/dL Lactic Acid (0.5-2.0) mmol/L Calcium 9.6 (8.6-10.3) mg/dL Magnesium 2.0 (1.9-2.7) mg/dL Total Bilirubin 0.60 (0.2-1.0) mg/dL AST 13 (13-39) U/L ALT 10 (7-52) U/L Alkaline Phosphatase 115 H (34-104) U/L B-Natriuretic Peptide ( - 100) pg/mL Total Protein 7.1 (6.4-8.9) g/dL Albumin 3.9 (3.2-5.2) g/dL Globulin 3.2 (2-4) g/dL Albumin/Globulin Ratio 1.2 (1-3) TSH 2.09 (0.34-5.60) mcIU/mL Urine Color Yellow Urine Appearance Clear Urine pH 6.0 (5-9) Ur Specific [place] 1.019 (1.010-1.030) Urine Protein Negative (Negative) Urine Ketones Negative (Negative) Urine Blood 1+ A (Negative) Urine Nitrate Negative (Negative) Urine Bilirubin Negative (Negative) Urine Urobilinogen Negative (Negative) Ur Leukocyte Esterase Negative (Negative) Urine WBC (Auto) Absent (Absent) Urine RBC (Auto) Trace(0-2/hpf) (Absent) Ur Squamous Epith Cells Present A (Absent) Urine Bacteria Absent (Absent) Urine Glucose Negative (Negative) Salicylates < 2.50 (<30) mg/dL Urine Opiates Screen None detected (None Detect) Acetaminophen < 15 mcg/mL Ur Barbiturates Screen None detected (None Detect) Ur Phencyclidine Scrn None detected (None Detect) Ur Amphetamines Screen Presumptive positive A (None Detect) U Benzodiazepines Scrn None detected (None Detect) Urine Cocaine Screen None detected (None Detect) U Cannabinoids Screen None detected (None Detect) Serum Alcohol < 10 (<10) mg/dL 02/15/18 02/15/18 02/15/18 Range/Units 12:40 12:40 12:40 WBC 8.5 (3.5-10.8) 10^3/ul RBC 4.91 (4.0-5.4) 10^6/ul Hgb 14.0 (12.0-16.0) g/dl Hct 42 (35-47) % MCV 85 (80-97) fL MCH 29 (27-31) pg MCHC 34 (31-36) g/dl RDW 17 H (10.5-15) % Plt Count 133 L (150-450) 10^3/ul MPV 9 (7.4-10.4) um3 Neut % (Auto) 81.6 (38-83) % Lymph % (Auto) 10.3 L (25-47) % [place] % (Auto) 6.6 (0-7) % Eos % (Auto) 1.1 (0-6) % Baso % (Auto) 0.4 (0-2) % Absolute Neuts (auto) 6.9 (1.5-7.7) 10^3/ul Absolute Lymphs (auto) 0.9 L (1.0-4.8) 10^3/ul Absolute Monos (auto) 0.6 (0-0.8) 10^3/ul Absolute Eos (auto) 0.1 (0-0.6) 10^3/ul Absolute Basos (auto) 0 (0-0.2) 10^3/ul Absolute Nucleated RBC 0 10^3/ul Nucleated RBC % 0.1 INR (Anticoag Therapy) 1.79 H (0.77-1.02) APTT 36.8 H (26.0-36.3) seconds Sodium (133-145) mmol/L Potassium (3.5-5.0) mmol/L Chloride (101-111) mmol/L Carbon Dioxide (22-32) mmol/L Anion Gap (2-11) mmol/L BUN (6-24) mg/dL Creatinine (0.51-0.95) mg/dL Est GFR ( Amer) (>60) Est GFR (Non-Af Amer) (>60) BUN/Creatinine Ratio (8-20) Glucose (70-100) mg/dL Lactic Acid (0.5-2.0) mmol/L Calcium (8.6-10.3) mg/dL Magnesium (1.9-2.7) mg/dL Total Bilirubin (0.2-1.0) mg/dL AST (13-39) U/L ALT (7-52) U/L Alkaline Phosphatase (34-104) U/L B-Natriuretic Peptide 126 H ( - 100) pg/mL Total Protein (6.4-8.9) g/dL Albumin (3.2-5.2) g/dL Globulin (2-4) g/dL Albumin/Globulin Ratio (1-3) TSH (0.34-5.60) mcIU/mL Urine Color Urine Appearance Urine pH (5-9) Ur Specific [place] (1.010-1.030) Urine Protein (Negative) Urine Ketones (Negative) Urine Blood (Negative) Urine Nitrate (Negative) Urine Bilirubin (Negative) Urine Urobilinogen (Negative) Ur Leukocyte Esterase (Negative) Urine WBC (Auto) (Absent) Urine RBC (Auto) (Absent) Ur Squamous Epith Cells (Absent) Urine Bacteria (Absent) Urine Glucose (Negative) Salicylates (<30) mg/dL Urine Opiates Screen (None Detect) Acetaminophen mcg/mL Ur Barbiturates Screen (None Detect) Ur Phencyclidine Scrn (None Detect) Ur Amphetamines Screen (None Detect) U Benzodiazepines Scrn (None Detect) Urine Cocaine Screen (None Detect) U Cannabinoids Screen (None Detect) Serum Alcohol (<10) mg/dL 02/15/18 Range/Units 12:40 WBC (3.5-10.8) 10^3/ul RBC (4.0-5.4) 10^6/ul Hgb (12.0-16.0) g/dl Hct (35-47) % MCV (80-97) fL MCH (27-31) pg MCHC (31-36) g/dl RDW (10.5-15) % Plt Count (150-450) 10^3/ul MPV (7.4-10.4) um3 Neut % (Auto) (38-83) % Lymph % (Auto) (25-47) % [place] % (Auto) (0-7) % Eos % (Auto) (0-6) % Baso % (Auto) (0-2) % Absolute Neuts (auto) (1.5-7.7) 10^3/ul Absolute Lymphs (auto) (1.0-4.8) 10^3/ul Absolute Monos (auto) (0-0.8) 10^3/ul Absolute Eos (auto) (0-0.6) 10^3/ul Absolute Basos (auto) (0-0.2) 10^3/ul Absolute Nucleated RBC 10^3/ul Nucleated RBC % INR (Anticoag Therapy) (0.77-1.02) APTT (26.0-36.3) seconds Sodium (133-145) mmol/L Potassium (3.5-5.0) mmol/L Chloride (101-111) mmol/L Carbon Dioxide (22-32) mmol/L Anion Gap (2-11) mmol/L BUN (6-24) mg/dL Creatinine (0.51-0.95) mg/dL Est GFR ( Amer) (>60) Est GFR (Non-Af Amer) (>60) BUN/Creatinine Ratio (8-20) Glucose (70-100) mg/dL Lactic Acid 0.9 (0.5-2.0) mmol/L Calcium (8.6-10.3) mg/dL Magnesium (1.9-2.7) mg/dL Total Bilirubin (0.2-1.0) mg/dL AST (13-39) U/L ALT (7-52) U/L Alkaline Phosphatase (34-104) U/L B-Natriuretic Peptide ( - 100) pg/mL Total Protein (6.4-8.9) g/dL Albumin (3.2-5.2) g/dL Globulin (2-4) g/dL Albumin/Globulin Ratio (1-3) TSH (0.34-5.60) mcIU/mL Urine Color Urine Appearance Urine pH (5-9) Ur Specific [place] (1.010-1.030) Urine Protein (Negative) Urine Ketones (Negative) Urine Blood (Negative) Urine Nitrate (Negative) Urine Bilirubin (Negative) Urine Urobilinogen (Negative) Ur Leukocyte Esterase (Negative) Urine WBC (Auto) (Absent) Urine RBC (Auto) (Absent) Ur Squamous Epith Cells (Absent) Urine Bacteria (Absent) Urine Glucose (Negative) Salicylates (<30) mg/dL Urine Opiates Screen (None Detect) Acetaminophen mcg/mL Ur Barbiturates Screen (None Detect) Ur Phencyclidine Scrn (None Detect) Ur Amphetamines Screen (None Detect) U Benzodiazepines Scrn (None Detect) Urine Cocaine Screen (None Detect) U Cannabinoids Screen (None Detect) Serum Alcohol (<10) mg/dL Microbiology and Other Data: Microbiology 02/21/18 14:10 Influenza Types A,B Antigen (NICHOLAS) - Final Nasal Specimen received for Influenza A/B Molecular testing Assess/Plan/Problems-Billing Assessment: This is a 72 year old female currently in the voluntary unit at [facility] that we are consulted on for new onset cough and subtherapeutic INR. - Patient Problems (1) Cough Code(s): R05 - COUGH SNOMED Code(s): 50379629 Comment: - guaifenisen/codeine PRN (2) Bronchitis Code(s): J40 - BRONCHITIS, NOT SPECIFIED ACUTE OR CHRONIC SNOMED Code(s): 55358407 Comment: - Afebrile, Augmentin day 2 of 5 (3) Mitral valve replaced Code(s): Z95.2 - PRESENCE OF PROSTHETIC HEART VALVE SNOMED Code(s): 7578454439858 Comment: - Mechanical valve, on coumadin - INR therapeutic today @2.82 (4) Morbid obesity with BMI of 45.0-49.9, adult Code(s): E66.01 - MORBID (SEVERE) OBESITY DUE TO EXCESS CALORIES; Z68.42 - BODY MASS INDEX (BMI) 45.0-49.9, ADULT SNOMED Code(s): 196340826 Comment: - Likely contributing to chronic pain and OA (5) MDD (major depressive disorder), recurrent episode Code(s): F33.9 - MAJOR DEPRESSIVE DISORDER, RECURRENT, UNSPECIFIED SNOMED Code (s): 694212170 Comment: - Care and meds as per psychiatry (6) Chronic diastolic heart failure Code(s): I50.32 - CHRONIC DIASTOLIC (CONGESTIVE) HEART FAILURE SNOMED Code(s) : 268316401 Comment: - continue home meds, not in acute exacerbation (7) Chronic pain Code(s): G89.29 - OTHER CHRONIC PAIN SNOMED Code(s): 66046013 Comment: - Continue pain managment/meds as needed Status and Disposition: Stable, will sign off. Please consult as needed.
[2018-02-23] MEDS: QUEtiapine TAB* 100 MG PO SCH (20:46)
[2018-02-23] MEDS: Atorvastatin* 80 MG TAB PO SCH (20:46)
[2018-02-24] MEDS: guaiFENesin/CODIEN 100MG-10MG* 5 ML UDC PO PRN ×4 (03:28→21:01)
[2018-02-24] MEDS: Torsemide TAB* 20 MG PO SCH ×2 (08:28→15:40)
[2018-02-24] MEDS: Amoxicillin/Clavulanate TAB* 500 MG PO SCH ×2 (08:28→20:56)
[2018-02-24] MEDS: buPROPion SR TAB.SR* 100 MG PO SCH (08:29)
[2018-02-24] MEDS: Venlafaxine EXT RELEASE CAP* 75 MG PO SCH (08:29)
[2018-02-24] MEDS: clonazePAM TAB(*) 1 MG PO SCH ×2 (08:29→21:00)
[2018-02-24] MEDS: Carvedilol TAB* 6.25 MG PO SCH ×2 (08:30→20:56)
[2018-02-24] MEDS: BuPROPion XL* 300 MG TAB.XL PO SCH (08:30)
[2018-02-24] MEDS: Potassium Chlor TAB* 20 MEQ TAB.ER PO SCH ×2 (08:30→21:00)
[2018-02-24] MEDS: Aspirin EC TAB* 81 MG TAB.EC PO SCH (08:30)
[2018-02-24] MEDS: Vitamin THERAPEUTIC TAB PO SCH (08:31)
[2018-02-24] MEDS: Oxybutynin TAB* 5 MG PO SCH ×3 (08:31→20:56)
[2018-02-24 12:58] LABS: INR 3.6 (0.77-1.02)
--- NOTE | 2018-02-24 14:53 | PN ---
Subjective - Subjective Date of Service: 02/24/18 Service Type: 74571 Hosp care 35 min high complexity Subjective: Heidi is agreeable to potential discharge Thursday or Thursday. The concern with Thursday is that she will not have adequate supports to create a successful discharge. Heidi requires support in the form of food purchasing, emotional support, house keeping, transportation, etc. Heidi has made significant progress, moving away from blaming others to accepting some things she wasn't able to before. Objective - Appearance Appearance: Obese Dysmorphic Features: No Hygiene: Dirty Grooming: Disheveled - Behavior Psychomotor Activities: Normal Exhibits Abnormal Movement: No - Attitude and Relatedness Attitude and Relatedness: Superficially Cooperative Eye Contact: Good - Speech Quality: Unpressured Latencies: Normal Quantity: Copious - Mood Patient's Decription of Mood: "Okay" - Affect Observed Affect: Fair Affect Consistent with: Dysphoria - Thought Process Patient's Thought Process: Coherent Thought Content: No Passive Wish - She has improved in this regard, but is not confident., No Suicidal Planning, No Homicidal Ideation, No Paranoid Ideation - Sensorium Experiencing Hallucinations: No, Sensorium is Clear Type of Hallucinations: Visual: No, Auditory: No, Command: No - Level of Consciousness Level of Consciousness: Alert Orientation: Yes Intact, Yes Orientated to Time, Yes Orientated to Place, Yes Orientated to Person - Impulse Control Impulse Control: Intact - Insight and Judgement Insight and Judgement: Impaired - Group Participation Particating in Group Activities: Yes - Medication Management Medication Management Adherence: Yes - Additional Observations Comments: Insight is limited by focus on illnesses. Although cooperative, she remains irritable. Insight is improving, although she still sees her life as a series of failures, which it clearly hasn't been. Further illness, her cough for example, are continuing to reduce her insight and ability to take responsibility for her own mental health. The cough continues and she is frustrated by it. Assessment - Assessment Merits Inpatient Hospitalization: For Ongoing Evaluation Inpatient DSM-V Dx: F33.2 Clinical Impression: 72-year-old morbidly obese female who comes in with a DNR that is not active here who was sent by her therapist at [facility] as they both perceived her depression to be worsening. Here she wonders why she isn't quickly better and why her patterns have not changed: these are patterns that have not served her well and she may be amenable to changes. She is motivated to feel better and get well. Today's focus has expanded from her physical self to her emotional and spiritual needs. Plan - Plan Treatment Plan: Name: HEIDI GUTIERREZ Birthdate: 1945 [id number] Medications: Current Medications Acetaminophen (Tylenol Tab*) 650 mg PO Q4H PRN PRN Reason: PAIN or TEMP > 101 F Last Admin: 02/20/18 21:03 Dose: 650 mg Al Hydrox/Mg Hydrox/Simethicone (Maalox Plus*) 30 ml PO Q4H PRN PRN Reason: INDIGESTION Amoxicillin/Clavulanate Potassium (Augmentin Tab*) 500 mg PO BID [facility] Stop: 02/27/18 20:59 Last Admin: 02/24/18 08:28 Dose: 500 mg Aspirin (Aspirin Ec Low Dose*) 81 mg PO DAILY [facility] Last Admin: 02/24/18 08:30 Dose: 81 mg Atorvastatin Calcium (Lipitor*) 80 mg PO BEDTIME [facility] Last Admin: 02/23/18 20:46 Dose: 80 mg Bupropion HCl (Wellbutrin Sr Tab*) 100 mg PO QAM [facility] Last Admin: 02/24/18 08:29 Dose: 100 mg Bupropion HCl (Bupropion Xl*) 300 mg PO DAILY [facility] Last Admin: 02/24/18 08:30 Dose: 300 mg Carvedilol (Coreg Tab*) 6.25 mg PO BID [facility] Last Admin: 02/24/18 08:30 Dose: 6.25 mg Clonazepam (Klonopin Tab(*)) 1 mg PO ONCE PRN PRN Reason: ANXIETY Clonazepam (Klonopin Tab(*)) 1 mg PO BID [facility] Last Admin: 02/24/18 08:29 Dose: 1 mg Docusate Sodium (Colace Cap*) 100 mg PO BEDTIME PRN PRN Reason: CONSTIPATION Guaifenesin/Codeine Phosphate (Robitussin Ac 100mg-10mg*) 5 ml PO Q4H PRN PRN Reason: COUGH Last Admin: 02/24/18 13:14 Dose: 5 ml Multivitamins (Theragran Tab*) 1 tab PO DAILY [facility] Last Admin: 02/24/18 08:31 Dose: 1 tab Nystatin (Nystatin Top Powder*) 1 applic TOPICAL BID [facility] Last Admin: 02/23/18 20:47 Dose: 1 applic Omeprazole (Prilosec Cap*) 20 mg PO DAILY PRN PRN Reason: DYSPEPSIA Oxybutynin Chloride (Ditropan Tab*) 5 mg PO TID [facility] Last Admin: 02/24/18 08:31 Dose: 5 mg Oxycodone HCl (Roxycodone Tab*) 5 mg PO Q8H PRN PRN Reason: PAIN Pharmacy Profile Note (Coumadin Per Pharmacy*) 1 note FOLLOW UP .PER PHARMACY PROTOC [facility] PRN Reason: Protocol Potassium Chloride (Klor Con Er Tab*) 20 meq PO BID [facility] Last Admin: 02/24/18 08:30 Dose: 20 meq Quetiapine Fumarate (Seroquel Tab*) 100 mg PO BEDTIME [facility] Last Admin: 02/23/18 20:46 Dose: 100 mg Torsemide (Demadex*) 20 mg PO 0700,1600 [facility] Last Admin: 02/24/18 08:28 Dose: Not Given Venlafaxine HCl (Effexor Xr Cap*) 150 mg PO DAILY [facility] Last Admin: 02/24/18 08:29 Dose: 150 mg Warfarin Sodium (Coumadin Tab(*)) 2 mg PO ONCE@1700 ONE Stop: 02/24/18 17:01 Zolpidem Tartrate (Ambien Tab*) 10 mg PO BEDTIME PRN PRN Reason: SLEEP - Discharge Plan Additional Comments: It is possible that in addition to [facility], we will continue to titrate to at least 225 mg. Heidi declines to move away from [facility] but states that she is interested in developing a plan for how to stay active and restart activities such as Meals on Wheels and having her [facility] aide come to her home again. Encouraging and motivating Heidi may be our most reliable way to achieve successful discharge.
[2018-02-24] MEDS ORDERED: Warfarin TAB(*) 2 MG PO ONE (17:00)
[2018-02-24] MEDS: Atorvastatin* 80 MG TAB PO SCH (20:56)
[2018-02-24] MEDS: QUEtiapine TAB* 100 MG PO SCH (21:00)
[2018-02-24] MEDS: Nystatin TOP POWDER* 15 GM BTL TOPICAL SCH (23:50)
[2018-02-25] MEDS: guaiFENesin/CODIEN 100MG-10MG* 5 ML UDC PO PRN ×4 (01:43→20:30)
[2018-02-25 06:59] LABS: INR 3.77 (0.77-1.02)
[2018-02-25] MEDS: Amoxicillin/Clavulanate TAB* 500 MG PO SCH ×2 (09:01→20:31)
[2018-02-25] MEDS: Aspirin EC TAB* 81 MG TAB.EC PO SCH (09:02)
[2018-02-25] MEDS: Potassium Chlor TAB* 20 MEQ TAB.ER PO SCH ×2 (09:02→20:30)
[2018-02-25] MEDS: Venlafaxine EXT RELEASE CAP* 75 MG PO SCH (09:02)
[2018-02-25] MEDS: BuPROPion XL* 300 MG TAB.XL PO SCH (09:03)
[2018-02-25] MEDS: Oxybutynin TAB* 5 MG PO SCH ×3 (09:03→20:32)
[2018-02-25] MEDS: buPROPion SR TAB.SR* 100 MG PO SCH (09:03)
[2018-02-25] MEDS: clonazePAM TAB(*) 1 MG PO SCH ×2 (09:03→20:30)
[2018-02-25] MEDS: Carvedilol TAB* 6.25 MG PO SCH ×2 (09:04→20:32)
[2018-02-25] MEDS: Vitamin THERAPEUTIC TAB PO SCH (09:04)
[2018-02-25] MEDS: Torsemide TAB* 20 MG PO SCH ×2 (09:18→16:08)
[2018-02-25] MEDS: Nystatin TOP POWDER* 15 GM BTL TOPICAL SCH ×2 (09:30→20:32)
--- NOTE | 2018-02-25 16:37 | PN ---
Subjective - Subjective Date of Service: 02/25/18 Service Type: 62674 Hosp care 25 min moderate complexity Subjective: Discussed with Heidi that she would be discharged Thursday. She continues to be focused on her cough, her physical health, and how the hospital operates rather than her mental health. When this is pointed out, she acknowledges that it is true, but she does not spontaneously offer to attempt to make changes. Objective - Appearance Appearance: Obese Dysmorphic Features: No Hygiene: Mal-odorous Grooming: Disheveled - Behavior Psychomotor Activities: Normal Exhibits Abnormal Movement: No - Attitude and Relatedness Attitude and Relatedness: Cooperative Eye Contact: Good - Speech Quality: Unpressured Latencies: Normal Quantity: Appropriate - Mood Patient's Decription of Mood: "Okay" - Affect Observed Affect: Fair Affect Consistent with: Euthymia - Thought Process Patient's Thought Process: Coherent Thought Content: No Passive Wish, No Suicidal Planning, No Homicidal Ideation, No Paranoid Ideation - Sensorium Experiencing Hallucinations: No, Sensorium is Clear Type of Hallucinations: Visual: No, Auditory: No, Command: No - Level of Consciousness Level of Consciousness: Alert Orientation: Yes Intact, Yes Orientated to Time, Yes Orientated to Place, Yes Orientated to Person - Impulse Control Impulse Control: Intact - Insight and Judgement Insight and Judgement: Good - Group Participation Particating in Group Activities: Yes - Medication Management Medication Management Adherence: Yes - Additional Observations Comments: Insight is limited by focus on illnesses. Although cooperative, she remains irritable. Insight is improving, although she still sees her life as a series of failures, which it clearly hasn't been. Further illness, her cough for example, are continuing to reduce her insight and ability to take responsibility for her own mental health. The cough continues and she is frustrated by it. Discharge was discussed today and she appeared to shy away from the discussion a bit. Assessment - Assessment Merits Inpatient Hospitalization: For Stabilization Inpatient DSM-V Dx: F33.2 Clinical Impression: 72-year-old morbidly obese female who comes in with a DNR that is not active here who was sent by her therapist at [facility] as they both perceived her depression to be worsening. Here she wonders why she isn't quickly better and why her patterns have not changed: these are patterns that have not served her well and she may be amenable to changes. She is interested in her physical state of being. She has lost 14 pounds while here and is delighted by that. Plan - Plan Treatment Plan: Name: HEIDI GUTIERREZ Birthdate: 1945 [id number] Medications: Current Medications Acetaminophen (Tylenol Tab*) 650 mg PO Q4H PRN PRN Reason: PAIN or TEMP > 101 F Last Admin: 02/20/18 21:03 Dose: 650 mg Al Hydrox/Mg Hydrox/Simethicone (Maalox Plus*) 30 ml PO Q4H PRN PRN Reason: INDIGESTION Amoxicillin/Clavulanate Potassium (Augmentin Tab*) 500 mg PO BID [facility] Stop: 02/27/18 20:59 Last Admin: 02/25/18 09:01 Dose: 500 mg Aspirin (Aspirin Ec Low Dose*) 81 mg PO DAILY [facility] Last Admin: 02/25/18 09:02 Dose: 81 mg Atorvastatin Calcium (Lipitor*) 80 mg PO BEDTIME [facility] Last Admin: 02/24/18 20:56 Dose: 80 mg Bupropion HCl (Wellbutrin Sr Tab*) 100 mg PO QAM [facility] Last Admin: 02/25/18 09:03 Dose: 100 mg Bupropion HCl (Bupropion Xl*) 300 mg PO DAILY [facility] Last Admin: 02/25/18 09:03 Dose: 300 mg Carvedilol (Coreg Tab*) 6.25 mg PO BID [facility] Last Admin: 02/25/18 09:04 Dose: 6.25 mg Clonazepam (Klonopin Tab(*)) 1 mg PO ONCE PRN PRN Reason: ANXIETY Clonazepam (Klonopin Tab(*)) 1 mg PO BID [facility] Last Admin: 02/25/18 09:03 Dose: 1 mg Docusate Sodium (Colace Cap*) 100 mg PO BEDTIME PRN PRN Reason: CONSTIPATION Guaifenesin/Codeine Phosphate (Robitussin Ac 100mg-10mg*) 5 ml PO Q4H PRN PRN Reason: COUGH Last Admin: 02/25/18 16:08 Dose: 5 ml Multivitamins (Theragran Tab*) 1 tab PO DAILY [facility] Last Admin: 02/25/18 09:04 Dose: 1 tab Nystatin (Nystatin Top Powder*) 1 applic TOPICAL BID [facility] Last Admin: 02/25/18 09:30 Dose: 1 applic Omeprazole (Prilosec Cap*) 20 mg PO DAILY PRN PRN Reason: DYSPEPSIA Oxybutynin Chloride (Ditropan Tab*) 5 mg PO TID [facility] Last Admin: 02/25/18 14:34 Dose: 5 mg Oxycodone HCl (Roxycodone Tab*) 5 mg PO Q8H PRN PRN Reason: PAIN Pharmacy Profile Note (Coumadin Per Pharmacy*) 1 note FOLLOW UP .PER PHARMACY PROTOC [facility] PRN Reason: Protocol Potassium Chloride (Klor Con Er Tab*) 20 meq PO BID [facility] Last Admin: 02/25/18 09:02 Dose: 20 meq Quetiapine Fumarate (Seroquel Tab*) 100 mg PO BEDTIME [facility] Last Admin: 02/24/18 21:00 Dose: 100 mg Torsemide (Demadex*) 20 mg PO 0700,1600 [facility] Last Admin: 02/25/18 16:08 Dose: 20 mg Venlafaxine HCl (Effexor Xr Cap*) 225 mg PO DAILY [facility] Last Admin: 02/25/18 09:02 Dose: 225 mg Warfarin Sodium (Coumadin Tab(*)) 1.5 mg PO 1700 ONE Stop: 02/25/18 17:01 Last Admin: 02/25/18 16:08 Dose: 1.5 mg Zolpidem Tartrate (Ambien Tab*) 10 mg PO BEDTIME PRN PRN Reason: SLEEP - Discharge Plan Discharge Plan: Outpatient Follow Up Outpatient Program: [facility] Additional Comments: It is possible that in addition to [facility], we will continue to titrate to at least 225 mg. Heidi declines to move away from [facility] but states that she is interested in developing a plan for how to stay active and restart activities such as Meals on Wheels and having her [facility] aide come to her home again. Encouraging and motivating Heidi may be our most reliable way to achieve successful discharge.
--- NOTE | 2018-02-25 16:48 | PN ---
MHU: Group Therapy Note - Service Type Service Type: 91722 Group Psychotherapy - Medication Education Group: Patient attended group and presented with flat affect that did not vary with discussion. Although responsive to direct prompts to respond to questions, patient did not engage in spontaneous conversation.
[2018-02-25] MEDS ORDERED: Warfarin TAB(*) 1 MG PO ONE (17:00)
[2018-02-25] MEDS: QUEtiapine TAB* 100 MG PO SCH (20:30)
[2018-02-25] MEDS: Atorvastatin* 80 MG TAB PO SCH (20:31)
[2018-02-26 07:53] VITALS: BP 115/59
[2018-02-26] MEDS: Amoxicillin/Clavulanate TAB* 500 MG PO SCH (09:10)
[2018-02-26] MEDS: Torsemide TAB* 20 MG PO SCH (09:10)
[2018-02-26] MEDS: buPROPion SR TAB.SR* 100 MG PO SCH (09:10)
[2018-02-26] MEDS: BuPROPion XL* 300 MG TAB.XL PO SCH (09:10)
[2018-02-26] MEDS: Aspirin EC TAB* 81 MG TAB.EC PO SCH (09:10)
[2018-02-26] MEDS: Potassium Chlor TAB* 20 MEQ TAB.ER PO SCH (09:11)
[2018-02-26] MEDS: Nystatin TOP POWDER* 15 GM BTL TOPICAL SCH (09:11)
[2018-02-26] MEDS: Carvedilol TAB* 6.25 MG PO SCH (09:11)
[2018-02-26] MEDS: clonazePAM TAB(*) 1 MG PO SCH (09:11)
[2018-02-26] MEDS: Oxybutynin TAB* 5 MG PO SCH ×2 (09:11→15:01)
[2018-02-26] MEDS: Vitamin THERAPEUTIC TAB PO SCH (09:12)
[2018-02-26] MEDS: Venlafaxine EXT RELEASE CAP* 75 MG PO SCH (09:12)
[2018-02-26] MEDS: guaiFENesin/CODIEN 100MG-10MG* 5 ML UDC PO PRN ×2 (09:14→15:01)
--- NOTE | 2018-02-27 14:23 | DS ---
DISCHARGE SUMMARY: DATE OF ADMISSION: 02/15/18 DATE OF DISCHARGE: 02/16/18 PROVIDER: Arianna Craft NP. SUPERVISING PHYSICIAN: Efra Sanderson MD.* (DICTATED BY ARIANNA CRAFT NP ) DIAGNOSES: [place] I: Major depressive disorder, recurrent, moderate. [place] II: Obsessive-compulsive personality disorder. [place] III: Replaced heart valves, mild congestive heart failure, obesity. CONDITION AT THE TIME OF DISCHARGE: Moderately improved, psychiatrically cleared, psychiatrically stable. She did participate in groups and she was somewhat social with peers. Her friends are agreeable to her discharge. She tolerated Effexor reasonably well with the exception of dry mouth and lack of appetite. [facility] where she will have an appointment with Vandana Flowers, her therapist, and Jovanna Sarmiento NP at [facility]. MENTAL STATUS EXAM: At the time of discharge, Heidi is calm, cooperative, and makes good eye contact. She is alert and oriented x3. Her grooming is adequate. Her speech is normal rate and rhythm. Her thought processes are logical. She is not psychotic, not delusional. She denies AH, VH, SI, and HI. Her insight and judgment are reasonably good. She is willing to follow up and she is urged to see a therapist. DISCHARGE INSTRUCTIONS TO THE PATIENT: A. Medications: 1. Amoxicillin clavulanate 500 mg p.o. b.i.d. 2. Aspirin 81 mg p.o. daily. 3. Lipitor 80 mg p.o. at bedtime. 4. Bupropion 450 mg q.a.m. 5. Coreg 6.25 mg p.o. b.i.d. 6. Clonazepam 1 mg t.i.d. 7. Colace 100 mg p.r.n. constipation. 8. Robitussin AC 100 mg/10 mg; 5 mg p.o. q.4 hours p.r.n. cough. 9. Nystatin topical powder. 10. Prilosec 20 mg p.o. daily p.r.n. dyspepsia. 11. Ditropan 5 mg p.o. t.i.d. 12. Roxicodone 5 mg p.o. q.8 hours p.r.n. pain. 13. Coumadin, which varies. 14. Potassium chloride 20 mEq p.o. b.i.d. 15. Seroquel 100 mg at bedtime. 16. Demadex 20 mg, 0700 and 1600. 17. Venlafaxine XR 225 mg p.o. daily. 18. Zolpidem tartrate 10 mg p.o. at bedtime. B. Diet is regular and calorie restricted. C. Activities: As tolerated. She is a nonsmoker and there are no studies pending at the time of discharge. D. Followup care: [facility] will [facility] as already stated. E. Substance abuse followup is not indicated. HOSPITAL COURSE: Part A: The patient is a 72-year-old female who is single. She has a history of depression, who arrives on a voluntary status, brought in by a friend's car after her therapist said it was okay to come to the hospital even though they did not know what she would get out of it. Heidi has been having increasing depression. She says it is chronic since she was child. She states she has nothing to live for. She is an intelligent woman, who feels unappreciated. She is living in a senior citizens' apartment building in [place]. She feels as though no one has ever paid attention to her. She has never felt claribel or success. She currently has no local family. She has been introverted since a young age. 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 When that got more complicated, she moved on to a skilled nursing. She states the staff there turned against her. She blames it on poor management and also mentions that this has happened multiple times; she might, therefore, have played a part in it, but she has no insight into what that part might be. She does complain of needing some things, including a new bed with a new mattress. She has a bottle caser, named Krystal Iyer, I believe, and she has a second telehealth case manager named, Parker Gary. She has not found Parker to be helpful. She has "tested her" and found her lacking, and Heidi sees a therapist [facility]. Her stressors seem to be consistent with aging as well as significant medical problems. She sleeps a lot. Her interest in things is practically nil. She does endorse some feelings of guilt. She has little energy. Her appetite is highly increased. She is morbidly obese and she thinks of suicide "constantly". Part B: Psychiatric treatment was rendered. The patient was admitted to the adult behavioral unit and placed on 15-minute checks for safety. Heidi did well on the unit and went to groups. She interacted with peers moderately well. She tolerated mediation changes, but complained about them. In fact, she complained about most things on the unit and used her nursing experience to criticize the nurses and the techs, and the aides, who interacted with her. Celexa was discontinued. Effexor was started. We increased it to 225 mg. She states that she has no appetite anymore and she regrets that. I suggested that that is a side effect that may go away if she is willing to tolerate it. She also developed a cough while she was here and that became the focus of her being here. We did treat it. Hospitalist was called for a consult and indeed she developed a cold or an allergy which led to bronchitis and was coughing a lot of the time. Eventually, we did give her Robitussin with Codeine, which seemed to help a small amount, but she was certain the cough should have been gone almost immediately. We also decreased Seroquel and we pushed Heidi to focus on her mental health rather than her physical health. This was not something that she found to be easy to do. Nevertheless, she is not suicidal at the time. She is cleared for discharge and she is being taken home by her friend to go back and live in her apartment. She has agreed to be more active and she states she will struggle to do that, but she believes it will be helpful to her as she did improve significantly with this schedule and 3 meals a day, she states. ARIANNA CRAFT, TENZIN [id number]/[facility] #: [id number] [place]
== END 2018-02-26 15:55 | disposition home or self-care (01) | DRG 885 ==
LOC: ED 11:39 → BSU 20:21
PROVIDERS: ADMIT Psychiatry & Neurology Psychiatry; ATTEND Psychiatry & Neurology Psychiatry
PROC: GZHZZZZ Group Psychotherapy (ICD-10-PCS; principal; 2018-02-17)
DX: F33.1 Major depressive disorder, recurrent, moderate (principal); R45.851 Suicidal ideations; I50.32 Chronic diastolic (congestive) heart failure; B37.89 Other sites of candidiasis; I25.10 Atherosclerotic heart disease of native coronary artery without angina pectoris; G47.33 Obstructive sleep apnea (adult) (pediatric); I27.20 Pulmonary hypertension, unspecified; E78.00 Pure hypercholesterolemia, unspecified; E66.01 Morbid (severe) obesity due to excess calories; M17.0 Bilateral primary osteoarthritis of knee; M47.9 Spondylosis, unspecified; G89.4 Chronic pain syndrome; F42.8 Other obsessive-compulsive disorder; J20.9 Acute bronchitis, unspecified; F60.5 Obsessive-compulsive personality disorder; Z79.01 Long term (current) use of anticoagulants; Z68.42 Body mass index [BMI] 45.0-49.9, adult; Z95.1 Presence of aortocoronary bypass graft; Z86.711 Personal history of pulmonary embolism; Z95.2 Presence of prosthetic heart valve; Z86.19 Personal history of other infectious and parasitic diseases; Z80.1 Family history of malignant neoplasm of trachea, bronchus and lung; Z82.49 Family history of ischemic heart disease and other diseases of the circulatory system; Z79.82 Long term (current) use of aspirin
CPT/HCPCS: 36415; 71046; 80053; 80061; 80307; 80320; 80329; 81003; 81015; 82565; 83036; 83605; 83735; 83880; 84443; 84520; 85014; 85018; 85025; 85049; 85610; 85730; 87502; 90853; 99222; 99231; 99232; 99233; 99238; 99284; A9270-GY; G0480

== ENCOUNTER 2020-01-30 10:03 | Emergency (ER) | payer MEDICARE, MEDICAID ==
--- OUTSIDE RECORDS SUMMARY | 2020-01-30 10:09 | XMS REPORT | Continuity of Care Document ---
:1945 External Reference #:[id number] Author Name Tricia Jennings M.D. (transmitted by agent of provider Teresa Figueredo) Address [address] [place] [id number] Care Team Providers Name Role Phone Roger Shen DO - Family Care Team Information Capital Campaign Fundraiser [facility] - Care Team Information Capital Campaign Fundraiser [phone] Rehabilitation Problems Active Problems Provider Date Dyspnea Fidelia Miles MD Onset: 10/09/2014 Obstructive sleep apnea syndrome Fidelia Miles MD Onset: 10/09/2014 Disorder of pulmonary circulation Fidelia Miles MD Onset: 10/30/2014 Morbid obesity Fidelia Miles MD Onset: 10/30/2014 Mitral valve disorder Tricia Jennings M.D. Onset: 03/13/2015 Heart valve replacement Tricia Jennings M.D. Onset: 03/13/2015 Arteriosclerosis of arterial coronary artery Tricia Jennings M.D. 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 Onset: 2014 artery bypass graft Hyperlipidemia Tricia Jennings M.D. Onset: 03/13/2015 Localized, primary osteoarthritis Marilee Alatorre M.D. Onset: 05/19/2016 Preoperative cardiovascular examination Tricia Jennings M.D. Onset: 08/12/2016 Social History Type Date Description Comments Sex Unknown Tobacco Use Start: Unknown Never Smoked Cigarettes Smoking Status Reviewed: 12/19/19 Never Smoked Cigarettes ETOH Use Denies alcohol use Tobacco Use Start: Unknown Patient has never smoked Recreational Drug Use Denies Drug Use Exercise Type/Frequency Does not exercise Allergies, Adverse Reactions, Alerts Description No Known Drug Allergies Medications Active Medications SIG Qnty Indications Ordering Date Provider Jemma CD 1 by mouth every 30caps R00.0 Akosua Jody Chavira, 11/04/2019 300mg Caps day N.P. ER 24HR Zetia 1 by mouth every 90tabs Akosua Jody Chavira, 12/06/2018 10mg Tablets day N.P. Rosuvastatin Calcium take one tablet 90tabs Akosua FidelJoshua Fan, 01/05/2018 every at bedtime N.P. 40mg Tablets Amoxicillin 4 tablets 1 hour 8caps Tricia Jennings, 05/09/2016 500mg before dental M.D. Capsules work Coumadin 1 tab let twice a 100tabs Tricia Jennings, 07/09/2015 1mg Tablets week along with a M.D. 3 mg tablet and as directed Torsemide 1 tab by mouth 90tabs Tricia Jennings, 09/13/2014 20mg Tablets once daily M.D. Multivitamins 1 by mouth every 30caps Fidelia Ginger, 09/13/2014 Capsules day MD Loera 1 by mouth every Unknown 20mg Tablets day Belsomra 1 tablet every Unknown 5mg Tablets night at bedtime as needed Prilosec OTC 1 by mouth every Unknown 20mg day Tablets Celecoxib take one capsule Unknown 100mg by mouth twice Capsules daily Klonopin 1 tablet up to 3x Unknown 1mg Tablets daily as needed Vitamin B12 1 by mouth every Unknown 1000mcg day Tablets ER Vitamin D3 1 by mouth twice Unknown 1000Units a day Capsules Ferrous Sulfate 1 by mouth daily Unknown 324(65Fe) mg Tablets Nystatin Domestic apply to affected 60units Unknown areas under the Powder abdominal folds Colace 1 by mouth daily 60caps Unknown 100mg Capsules as needed Aspirin Ec 1 by mouth every 90tabs Unknown 81mg Tablets day Potassium Chloride 1 by mouth bid 30units Unknown 20Meq Packet Oxycodone HCL 1 tab by mouth 30tabs Unknown 5mg every 6 hours as Tablets needed for pain Coumadin 1 tab every day 360tabs Tricia Jennings, 3mg Tablets and as directed Jonathan Ditropan XL 1 by mouth three 90tabs Unknown 5mg Tablets times a day ER 24HR History Medications Dilt-XR 2 tabs by mouth 90caps R00.0 Tricia Jennings M.D. 09/16/2019 - 120mg daily 11/04/2019 Caps ER 24HR Medications Administered in Office Medication SIG Qnty Indications Ordering Provider Date Synvisc Or Synvisc-One Injection 1 Marilee Alatorre M.D. 06/07/2018 MG Injection Synvisc Or Synvisc-One Injection 1 Marilee Alatorre M.D. 06/07/2018 MG Injection Synvisc Or Synvisc-One Injection 1 Marilee Alatorre M.D. 05/31/2018 MG Injection Synvisc Or Synvisc-One Injection 1 Marilee Alatorre M.D. 05/31/2018 MG Injection Synvisc Or Synvisc-One Injection 1 Marilee Alatorre M.D. 05/24/2018 MG Injection Synvisc Or Synvisc-One Injection 1 Marilee Alatorre M.D. 05/24/2018 MG Injection Depomedrol 40MG Marilee Alatorre M.D. 02/08/2018 Injection Depomedrol 40MG Marilee Alatorre M.D. 02/08/2018 Injection Depomedrol 40MG Marilee Alatorre M.D. 11/09/2017 Injection Depomedrol 40MG Marilee Alatorre M.D. 11/09/2017 Injection Depomedrol 40MG Marilee Alatorre M.D. 08/10/2017 Injection Deplunarol 40MG Marilee Alatorre M.D. 08/10/2017 Injection Kartikrol 40MG Marilee Alatorre M.D. 11/19/2016 Injection Skipomedrol 40MG Marilee Alatorre M.D. 11/19/2016 Injection Kartikrol 40MG Marilee Alatorre M.D. 08/20/2016 Injection Kartikrol 40MG Marilee Alatorre M.D. 08/20/2016 Injection Depomedrol 40MG Marilee Alatorre M.D. 05/19/2016 Injection Depomedrol 40MG Marilee Alatorre M.D. 05/19/2016 Injection Depomedrol 40MG Marilee Alatorre M.D. 02/08/2016 Injection Depomedrol 80MG Marilee Alatorre M.D. 09/03/2015 Injection Kartikrol 80MG Marilee lAatorre M.D. 05/14/2015 Injection Depomedrol 80MG Marilee Alatorre M.D. 01/26/2015 Injection Depomedrol 80MG Marilee Alatorre M.D. 01/26/2015 Injection Immunizations CPT Code Status Date Vaccine Lot # [id number] Given 10/03/2014 Influenza Virus 3Yrs & Over Vital Signs Date Vital Result Comment 12/19/2019 12:39pm Height 66 inches 5'6" Weight 325.50 lb with shoes Heart Rate 76 /min BP Systolic Sitting 106 mmHg Lue lg cuff BP Diastolic Sitting 60 mmHg Lue lg cuff BP Systolic Standing 102 mmHg Lue lg cuff BP Diastolic Standing 60 mmHg Lue lg cuff Respiratory Rate 16 /min BMI (Body Mass Index) 52.5 kg/m2 Ejection Fraction 50-55% date 09/27/19 echo 11/04/2019 10:26am Height 66 inches 5'6" Weight 322.75 lb with shoes Heart Rate 94 /min BP Systolic Sitting 120 mmHg Rue Lg cuff BP Diastolic Sitting 70 mmHg Rue Lg cuff BP Systolic Standing 148 mmHg Rue Lg cuff BP Diastolic Standing 78 mmHg Rue Lg cuff Respiratory Rate 14 /min BMI (Body Mass Index) 52.1 kg/m2 Ejection Fraction 50-55% date 09/27/19 ECHO Results Test Acquired Date Facility Test Result H/L Range Note Lipid Panel - 08/29/2019 [facility] Creatine 66 U/L Normal 10- [address] Kinase(CK) [place] [address] [phone] Comp Metabolic 08/29/2019 [facility] Sodium 145 mmol/L Normal 135-[address] [place] [address] [phone] Potassium 4.2 mmol/L Normal 3.5-5.0 Chloride 107 mmol/L Normal 101-111 Co2 Carbon Dioxide 30 mmol/L Normal 22-32 Anion Gap 8 mmol/L Normal 2-11 Glucose 95 mg/dL Normal 70-100 Blood Urea Nitrogen 18 mg/dL Normal 6-24 Creatinine 0.84 mg/dL Normal 0.51-0.95 BUN/Creatinine Ratio 21.4 High 8-20 Calcium 9.5 mg/dL Normal 8.6-10.3 Total Protein 6.8 g/dL Normal 6.4-8.9 Albumin 4.1 g/dL Normal 3.2-5.2 Globulin 2.7 g/dL Normal 2-4 Albumin/Globulin Ratio 1.5 Normal 1-3 Total Bilirubin 0.90 mg/dL Normal 0.2-1.0 Alkaline Phosphatase 110 U/L High 34-104 Alt 30 U/L Normal 7-52 Ast 31 U/L Normal 13-39 Egfr Non- 66.8 >60 Egfr 80.9 >60 1 Lipid Profile 08/29/2019 [facility] Triglycerides 123 mg/dL 2 (Trig/Chol/HDL) [address] [place] [address] [phone] Cholesterol 128 mg/dL 3 HDL Cholesterol 54.6 mg/dL 4 LDL Cholesterol 49 mg/dL 5 Lipid Panel - 07/12/2019 [facility] Creatine Kinase(CK) <pending > JF [address] [place] [address] [phone] 1 Because ethnic data is not always readily [...] 15-29 5 Kidney failure <15 (or dialysis) 2 Desirable: <150 Borderline High: 150-199 High: 200-499 Very High: >500 3 Desirable: <200 Borderline High: 200-239 High: >239 4 Low: <40 Desirable: 40-60 High: >60 5 Desirable: <100 Near Optimal: 100-129 Borderline High: 130-159 High: 160-189 Very High: >189 Procedures Date Code Description Status 12/19/2019 75739 EKG Tracing & Interpretation Completed 11/04/2019 27200 EKG Tracing & Interpretation Completed 09/27/2019 91152 ECHO Transthoracic, Real-Time 2D With Doppler And Color Completed Flow 09/27/2019 52433 ECHO Transthoracic, Real-Time 2D With Doppler And Color Completed Flow 07/29/2019 37655 EKG Tracing & Interpretation Completed 07/12/2019 45480 EKG Tracing & Interpretation Completed Medical Devices Description No Information Available Encounters Type Date Location Provider Dx Diagnosis Office Visit 12/19/2019 [facility] Tricia Jennings, Z95.2 Presence of 1: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 Z95.2 Presence of Of Cass Chavira, N.P. prosthetic heart valve R06.02 Shortness of breath R00.0 Tachycardia, unspecified I25.810 Atherosclerosis of CABG w/o angina pectoris E78.5 Hyperlipidemia, unspecified Z95.1 Presence of aortocoronary bypass graft Office Visit 09/30/2019 2:00p [facility] Akosua S. Z95.2 Presence of Of Cass Chavira, N.P. prosthetic heart valve R06.02 Shortness of breath R00.0 Tachycardia, unspecified I25.810 Atherosclerosis of CABG w/o angina pectoris E78.5 Hyperlipidemia, unspecified Office Visit 09/16/2019 [place] Tricia Jennings I25.810 Atherosclerosis of 1:10p Cardiology Of M.D. CABG w/o angina Set Off Blocker pectoris Z95.2 Presence of prosthetic heart valve R00.0 Tachycardia, unspecified R06.02 Shortness of breath F33.9 Major depressive disorder, recurrent, unspecified E78.5 Hyperlipidemia, unspecified Office Visit 07/12/2019 11:00a [facility] Akosua S. R00.0 Tachycardia , Of Set Off Blocker Foster, N.P. unspecified I45.10 Unspecified right bundle-branch block R06.02 Shortness of breath I25.810 Atherosclerosis of CABG w/o angina pectoris E78.5 Hyperlipidemia, unspecified Assessments Date Code Description Provider 12/19/2019 Z95.2 Presence of prosthetic heart valve Tricia Jennings M.D. 12/19/2019 I25.810 Atherosclerosis of coronary artery Tricia Jennings M.D. bypass graft(s) without a 12/19/2019 R06.02 Shortness of breath Tricia Jennings M.D. 12/19/2019 E78.5 Hyperlipidemia, unspecified Tricia Jennings M.D. 12/19/2019 I10 Essential (primary) hypertension Tricia Jennings M.D. 11/04/2019 R94.31 Abnormal electrocardiogram [ECG] [EKG] Pasha Milian M.D. 11/04/2019 Z95.2 Presence of prosthetic heart valve Akosua S. Foster, N.P. 11/04/2019 R06.02 Shortness of breath Akosua S. Foster, N.P. 11/04/2019 R00.0 Tachycardia, unspecified Akosua S. Foster, N.P. 11/04/2019 I25.810 Atherosclerosis of coronary artery Akosua S. Foster, N.P. bypass graft(s) without a 11/04/2019 E78.5 Hyperlipidemia, unspecified Akosua S. Foster, N.P. 11/04/2019 Z95.1 Presence of aortocoronary bypass graft Akosua S. Foster, N.P. 09/30/2019 Z95.2 Presence of prosthetic heart valve Akosua S. Foster, N.P. 09/30/2019 R06.02 Shortness of breath Akosua S. Foster, N.P. 09/30/2019 R00.0 Tachycardia, unspecified Akosua S. Foster, N.P. 09/30/2019 I25.810 Atherosclerosis of coronary artery Akosua S. Foster, N.P. bypass graft(s) without a 09/30/2019 E78.5 Hyperlipidemia, unspecified Akosua S. Foster, N.P. 09/27/2019 Z95.2 Presence of prosthetic heart valve Tricia Jennings M.D. 09/27/2019 Z95.2 Presence of prosthetic heart valve Traveling ECHO 1 09/27/2019 I25.810 Atherosclerosis of coronary artery Traveling ECHO 1 bypass graft(s) without angina pectoris 09/27/2019 R06.02 Shortness of breath Traveling ECHO 1 09/16/2019 I25.810 Atherosclerosis of coronary artery Tricia Jennings M.D. bypass graft(s) without a 09/16/2019 Z95.2 Presence of prosthetic heart valve Tricia Jennings M.D. 09/16/2019 R00.0 Tachycardia, unspecified Tricia Jennings M.D. 09/16/2019 R06.02 Shortness of breath Tricia Jennings M.D. 09/16/2019 F33.9 Major depressive disorder, recurrent, Tricia Jennings M.D. unspecified 09/16/2019 E78.5 Hyperlipidemia, unspecified Tricia Jennings M.D. 07/29/2019 R00.0 Tachycardia, unspecified Nurse Visit IC 07/29/2019 R94.31 Abnormal electrocardiogram [ECG] [EKG] Nurse Visit IC 07/12/2019 R94.31 Abnormal electrocardiogram [ECG] [EKG] Tricia Jennings M.D. 07/12/2019 R00.0 Tachycardia, unspecified Akosua S. Fan, N.P. 07/12/2019 I45.10 Unspecified right bundle-branch block Akosua S. Fan, N.P. 07/12/2019 R06.02 Shortness of breath Akosua Parra. Fan, N.P. 07/12/2019 I25.810 Atherosclerosis of coronary artery Akosua S. Fan, N.P. bypass graft(s) without a 07/12/2019 E78.5 Hyperlipidemia, unspecified Akosua S. Foster, N.P. Plan of Treatment 12/19/2019 - Tricia Jennings M.D.Z95.2 Presence of prosthetic heart valveComments: Mechanical mitral.Exam and echo are` stable.Follow up:6 months I support assisted living, if you decide to pursue.I25.810 Atherosclerosis of coronary artery bypass graft(s) without aComments:ECG is stableRecommendations:Call if chest pain or worse breathing.R06.02 Shortness of breathComments:Chronic/stable , multifactorial weight, valve, deconditioned.E78.5 Hyperlipidemia, unspecifiedComments:Good [id number] Essential (primary) hypertensionComments: Continue cardizem at current dose. Functional Status Description No Information Available Mental Status Description No Information Available Referrals Description No Information Available
--- OUTSIDE RECORDS SUMMARY | 2020-01-30 10:09 | XMS REPORT | Continuity of Care Document ---
:1945 External Reference #:[id number] Author Name Roger Shen D.O. Address [address] [place] [address] Care Team Providers Name Role Phone Forrest Tony Pulmonary Medicine - Care Team Information [facility] Technician [phone] Pulmonary Disease Rafiq Drew MD - Pulmonary Disease Care Team Information [facility] Laboratory Technician [facility] - Care Team Information [facility] Laboratory Technician [phone] Cardiology - Cardiovascular Disease HCP given Care Team Information [facility] Laboratory Technician Unavailable Vandana Montoya NP - Psych/Mental Health Care Team Information [facility] Laboratory Technician [facility] - Care Team Information [facility] Laboratory Technician [phone] [facility] - Sleep Disorder Care Team Information [facility] Laboratory Technician [phone] [facility] - Care Team Information [facility] Laboratory Technician [phone] Pulmonary Disease [facility] - Care Team Information [facility] Laboratory Technician [phone] Counselor Rajesh Hamlin MD - Orthopaedic Care Team Information [facility] Laboratory Technician [phone] Surgery Tricia Jennings MD - Cardiovascular Care Team Information [facility] Laboratory Technician [facility] & Care Team Information [facility] Laboratory Technician [phone] Plas - Plastic and Reconstructive Surgery Problems Active Problems Provider Date Mitral valve disorder Angeles Pabon Onset: 08/22/2013 Disorder of lung Angeles Pabon Onset: 08/22/2013 Morbid obesity Angeles Pabon Onset: 08/22/2013 Impaired fasting glycaemia Amie Boggs MD Onset: 01/26/2014 Sleep apnea Amie Boggs MD Onset: 02/23/2014 Obesity Amie Boggs MD Onset: 02/23/2014 Chronic pain syndrome Amie Boggs MD Onset: 02/23/2014 Difficulty breathing Amie Boggs MD Onset: 02/23/2014 Mild recurrent major depression Amie Boggs MD Onset: 02/23/2014 Sleep apnea Roger Shen D.O. Onset: 08/21/2015 Constipation Roger Shen D.O. Onset: 08/21/2015 Body mass index 40+ - severely obese Roger Shen D.O. Onset: 12/18/2015 Purpuric disorder Roger Shen D.O. Onset: 12/18/2015 Lymphadenopathy Roger Shen D.O. Onset: 11/17/2016 Social History Type Date Description Comments Sex Unknown Tobacco Use Start: Unknown Denies Cigarette Use ETOH Use Denies alcohol use Recreational Drug Use Denies Drug Use Tobacco Use Start: Unknown Patient has never smoked Smoking Status Reviewed: 01/02/20 Patient has never smoked Exercise Type/Frequency Does not exercise Seat Belt/Car Seat Seat Belt Use - Yes Guns in Home No Smoke Alarms Yes smoke alarm Allergies, Adverse Reactions, Alerts Description No Known Drug Allergies Medications Active Medications SIG Qnty Indications Ordering Date Provider Belsopriti Take 1 tablet by 30tabs G47.00 Roger Shen, 11/15/2019 5mg Tablets mouth daily at D.O. bedtime as needed for trouble sleeping Cromolyn Sodium one spray into each 26ml R05 Roger Shen, 09/23/2019 nostril 3 or 4 D.O. 5.2mg/Act Aerosol times daily Cromolyn Sodium instill 1 drop into 10ml R05 Roger Shen, 09/23/2019 4% affected eye 4 D.O. Solution times per day for inflammation of eyelid lining Dilt-XR Take One Capsule By Unknown 09/17/2019 120mg Caps ER Mouth Every Day 24HR Celebrex Take 1 capsule by 180caps Roger Shen, 07/14/2019 100mg mouth 2 times per D.O. Capsules day with food for arthritis Rosuvastatin Calcium one po daily Unknown 07/12/2019 40mg Tablets Hydroxyzine HCL 1 by mouth at night 90tabs F33.0 Roger Shen, 2018 25mg for sleep D.O. Tablets F41.9 Ezetimibe 1 po daily Unknown 12/02/2018 10mg Tablets Liners liners used for 60units Merlin Fred, 06/15/2018 incontinence 2/day M.D. Chux use as a bed lining for 30units MerlinFred, 06/15/2018 incontinence 1/day M.D. Nystop apply to affected area 60gm Roger Shen, 02/27/2018 134375Joof/GM as needed D.O. Powder Torsemide 1 by mouth every twice GrahamTricia ying, 01/05/2018 20mg daily MD Tablets Klonopin 1 by mouth three times Unknown 11/30/2017 1mg Tablets a day prn Omeprazole 1 by mouth every day 90caps Roger Shen, 10/16/[address] Amoxicillin 1 po before dental Unknown 08/19/2017 875mg procedures Tablets Vitamin B12 take 1 sublingual 90tabs Roger Shen, 01/14/2017 1000mcg tablet daily at night D.O. Tablets ER away from multivitamin Home Health Aide Home Health Aide. F33.0 Roger Shen, 12/23/2016 Personal care, D.O. cleaning, etc. Vitamin D3 take one capsule by 90caps E55.9 Roger Shen, 01/22/2016 5000Unit mouth every day or 7 D.O. Capsules tablets once a week Miralax 1 capful in 8 oz. of 510gm K59.00 Roger Shen, 08/21/2015 3350NF Powder water by mouth every D.O. day if constipated increase by 1/2 a capful if having diarrhea decrease by 1/2 capf Oxycodone HCL 1 to 2 tab by mouth 100tabs M54.89 Roger Shen, 2013 5mg every 6 hours for D.O. Tablets refractory pain Klor-Con M20 2 po twice daily Unknown 08/24/2014 20Meq Tablets ER Ferrous Sulfate 1 by mouth every day 30tabs Unknown 08/24/2014 325(65Fe) mg Tablets Stocking compression stocking OnePair 782.3 Amie Boggs MD 06/22/2014 for your leg edema Colace 1 po bid prn to keep 100caps 782.3 Amie Boggs MD 06/22/2014 100mg Capsules stools soft.this is o.t.c. can add senna in hs prn. to stimulate bowel movement Enoxaparin Sodium one cubic centimeters 20cc F33.0 Amie Boggs MD 2013 sc twice a day as 150mg/ml Solution needed subtherapeutic inr Coumadin qpm as directed 60tabs Fred Boyer, 08/22/2013 1mg Tablets M.D. Oxybutynin Chloride 1 tab twice a day to 180tabs N39.41 Roger Shen, three times a day, as D.O. 5mg Tablets needed Multiple Vitamin Fred Boyer, 07/01/2013 M.D. Tablets Coumadin as directed. 100tabs Unknown 04/21/2013 4mg Tablets Aspirin Ec Lo-Dose 1 by mouth every day F33.0 Fred Boyer, 04/14/2013 for heart protection M.D. 81mg Tablets DR History Medications Metoprolol Succinate ER Take One Tablet By Tricia Jennings MD 09/16/2019 - Mouth Every Day 11/14/2019 50mg Tablets ER 24HR Mirtazapine Take One Tablet By Unknown 08/10/2019 - 15mg Tablets Mouth AT Bedtime 11/14/2019 Metoprolol Succinate ER 1 by mouth twice Unknown 07/12/2019 - daily 09/16/2019 50mg Tablets ER 24HR Immunizations CPT Code Status Date Vaccine Lot # [id number] Given 08/29/2019 Influenza Virus Vaccine, Quadrivalent, Split, [id number] Preservative Free 81225 Given 04/22/2019 Pneumococcal Immunization [id number] 22866 Given 09/20/2018 Influenza Vaccine, Inactivated, Subunit, [id number] Adjuvanted, For Intrmusc 00829 Given 04/14/2018 Prevnar 13 [id number] 58691 Given 08/27/2017 Influenza Vaccine Split Virus Preservative Free Im Use (hi-dose) 05987 Given 10/07/2016 Influenza Virus Vaccine, Quadrivalent, Split, [id number] Preservative Free 86446 Given 10/16/2015 Influenza Virus Vaccine, Quadrivalent, Split, [id number] Preservative Free 65416 Given 10/03/2014 Influenza Vaccine Split Virus Preservative Free [id number] Im Use (hi-dose) 22593 Given 10/24/2013 Adacel or Boostrix, TDaP [id number] 07068 Given 09/22/2013 Flu, Split Virus 3Yrs [id number] Ordered 07/04/2013 Pneumococcal Immunization 97950 Ordered 07/04/2013 Flu Vaccine Split Virus 3Yrs And Older Vital Signs Date Vital Result Comment 01/02/2020 12:10pm BP Systolic 158 mmHg BP Diastolic 68 mmHg Weight 337.00 lb 11/15/2019 9:53am BP Systolic 130 mmHg BP Diastolic 66 mmHg Height 64.50 inches 5'4.50" Weight 328.00 lb BMI (Body Mass Index) 55.4 kg/m2 Results Test Acquired Date Facility Test Result H/L Range Note Comp Metabolic 08/29/2019 [facility] Sodium 145 mmol/L Normal 135- 145 Panel [phone] Potassium 4.2 mmol/L Normal 3.5-5.0 Chloride 107 [...] >60 Egfr 80.9 >60 1 Lipid Profile (Trig/Chol/HDL) 08/29/2019 [facility] Triglycerides 123 mg/dL 2 [phone] Cholesterol 128 mg/dL 3 HDL Cholesterol 54.6 mg/dL 4 LDL Cholesterol 49 mg/dL 5 Laboratory test 08/29/2019 [facility] Creatine 66 U/L Normal 10-223 finding [phone] Kinase(CK) 1 Because ethnic data is not always [...] High: >189 Procedures Date Code Description Status 01/02/2020 90893 Omt 7-8 Body Regions Completed 09/23/2019 01958 Omt 7-8 Body Regions Completed 08/29/2019 54465 Omt 7-8 Body Regions Completed 07/20/2019 19694 Omt 7-8 Body Regions Completed 12/06/2018 [id number] Mammogram Completed Medical Devices Description No Information Available Encounters Type Date Location Provider Dx Diagnosis Office Visit 01/02/2020 Main Office Roger Shen, F33.0 Major depressive 11:30a D.O. disorder, recurrent, mild M79.10 Myalgia, unspecified site K59.00 Constipation, unspecified R05 Cough M15.0 Primary generalized (osteo)arthritis M54.2 Cervicalgia M54.5 Low back pain R01.1 Cardiac murmur, unspecified M99.05 Segmental and somatic dysfunction of pelvic region M99.03 Segmental and somatic dysfunction of lumbar region M99.04 Segmental and somatic dysfunction of sacral region M99.00 Segmental and somatic dysfunction of head region M99.01 Segmental and somatic dysfunction of cervical region M99.08 Segmental and somatic dysfunction of rib cage M99.02 Segmental and somatic dysfunction of thoracic region M99.07 Segmental and somatic dysfunction of upper extremity Office Visit 11/15/2019 9:45a Main Office Roger Shen, F33.0 Major depressive D.O. disorder, recurrent, mild M79.10 Myalgia, unspecified site K59.00 Constipation, unspecified R05 Cough M99.00 Segmental and somatic dysfunction of head region M99.01 Segmental and somatic dysfunction of cervical region M99.08 Segmental and somatic dysfunction of rib cage M99.02 Segmental and somatic dysfunction of thoracic region M99.03 Segmental and somatic dysfunction of lumbar region M99.05 Segmental and somatic dysfunction of pelvic region M99.04 Segmental and somatic dysfunction of sacral region Z68.43 Body mass index (BMI) 50.0-59.9, adult Office Visit 09/23/2019 8:30a Main Office Roger Shen, F33.0 Major depressive D.O. disorder, recurrent, mild M79.10 Myalgia, unspecified site K59.00 Constipation, unspecified R05 Cough M99.00 Segmental and somatic dysfunction of head region M99.01 Segmental and somatic dysfunction of cervical region M99.08 Segmental and somatic dysfunction of rib cage M99.02 Segmental and somatic dysfunction of thoracic region M99.03 Segmental and somatic dysfunction of lumbar region M99.05 Segmental and somatic dysfunction of pelvic region M99.04 Segmental and somatic dysfunction of sacral region Office Visit 08/29/2019 12:55p Main Office Roger Shen, F33.0 Major depressive D.O. disorder, recurrent, mild M15.0 Primary generalized (osteo)arthritis M79.10 Myalgia, unspecified site K59.00 Constipation, unspecified M99.00 Segmental and somatic dysfunction of head region M99.01 Segmental and somatic dysfunction of cervical region M99.08 Segmental and somatic dysfunction of rib cage M99.03 Segmental and somatic dysfunction of lumbar region M99.05 Segmental and somatic dysfunction of pelvic region M99.02 Segmental and somatic dysfunction of thoracic region M99.04 Segmental and somatic dysfunction of sacral region Office Visit 07/20/2019 12:55p Main Office Sopkasandrak, Roger, D.O. M54.2 Cervicalgia M54.5 Low back pain F33.0 Major depressive disorder, recurrent, mild M15.0 Primary generalized (osteo)arthritis M99.00 Segmental and somatic dysfunction of head region M99.02 Segmental and somatic dysfunction of thoracic region M99.03 Segmental and somatic dysfunction of lumbar region M99.04 Segmental and somatic dysfunction of sacral region M99.05 Segmental and somatic dysfunction of pelvic region M99.01 Segmental and somatic dysfunction of cervical region M99.08 Segmental and somatic dysfunction of rib cage I25.810 Atherosclerosis of CABG w/o angina pectoris Assessments Date Code Description Provider 01/02/2020 F33.0 Major depressive disorder, recurrent, mild Sopchak, Roger, D.O. 01/02/2020 M79.10 Myalgia, unspecified site Sopchak, Roger, D.O. 01/02/2020 K59.00 Constipation, unspecified Sopchak, Roger, D.O. 01/02/2020 R05 Cough Sopchak, Roger, D.O. 01/02/2020 M15.0 Primary generalized (osteo)arthritis Sopchak, Roger, D.O. 01/02/2020 M54.2 Cervicalgia Sopchak, Roger, D.O. 01/02/2020 M54.5 Low back pain Sopchak, Roger, D.O. 01/02/2020 R01.1 Cardiac murmur, unspecified Sopchak, Roger, D.O. 01/02/2020 M99.05 Segmental and somatic dysfunction of pelvic Sopchak, Roger , D.O. region 01/02/2020 M99.03 Segmental and somatic dysfunction of lumbar Sopchak, Roger , D.O. region 01/02/2020 M99.04 Segmental and somatic dysfunction of sacral Sopchak, Roger , D.O. region 01/02/2020 M99.00 Segmental and somatic dysfunction of head Sopchak, Roger, D.O. region 01/02/2020 M99.01 Segmental and somatic dysfunction of cervical Sopchak, Roger, D.O. region 01/02/2020 M99.08 Segmental and somatic dysfunction of rib cage Sopchak, Roger, D.O. 01/02/2020 M99.02 Segmental and somatic dysfunction of thoracic Sopchak, Roger, D.O. region 01/02/2020 M99.07 Segmental and somatic dysfunction of upper Sopchak, Roger , D.O. extremity 11/15/2019 F33.0 Major depressive disorder, recurrent, mild Sopchak, Roger, D.O. 11/15/2019 M79.10 Myalgia, unspecified site Sopchak, Roger, D.O. 11/15/2019 K59.00 Constipation, unspecified Sopchak, Roger, D.O. 11/15/2019 R05 Cough Sopchak, Roger, D.O. 11/15/2019 M99.00 Segmental and somatic dysfunction of head Sopchak, Roger, D.O. region 11/15/2019 M99.01 Segmental and somatic dysfunction of cervical Sopchak, Roger, D.O. region 11/15/2019 M99.08 Segmental and somatic dysfunction of rib cage Sopchak, Roger, D.O. 11/15/2019 M99.02 Segmental and somatic dysfunction of thoracic Sopchak, Roger, D.O. region 11/15/2019 M99.03 Segmental and somatic dysfunction of lumbar Sopchak, Roger , D.O. region 11/15/2019 M99.05 Segmental and somatic dysfunction of pelvic Sopchak, Roger , D.O. region 11/15/2019 M99.04 Segmental and somatic dysfunction of sacral Sopchak, Roger , D.O. region 11/15/2019 Z68.43 Body mass index (BMI) 50.0-59.9, adult Sopchak, Roger, D.O. 09/23/2019 F33.0 Major depressive disorder, recurrent, mild Sopchak, Roger, D.O. 09/23/2019 M79.10 Myalgia, unspecified site Sopchak, Roger, D.O. 09/23/2019 K59.00 Constipation, unspecified Sopchak, Roger, D.O. 09/23/2019 R05 Cough Sopchak, Roger, D.O. 09/23/2019 M99.00 Segmental and somatic dysfunction of head Sopchak, Roger, D.O. region 09/23/2019 M99.01 Segmental and somatic dysfunction of cervical Sopchak, Roger, D.O. region 09/23/2019 M99.08 Segmental and somatic dysfunction of rib cage Sopchak, Roger, D.O. 09/23/2019 M99.02 Segmental and somatic dysfunction of thoracic Sopchak, Roger, D.O. region 09/23/2019 M99.03 Segmental and somatic dysfunction of lumbar Sopchak, Roger , D.O. region 09/23/2019 M99.05 Segmental and somatic dysfunction of pelvic Sopchak, Roger , D.O. region 09/23/2019 M99.04 Segmental and somatic dysfunction of sacral Sopchak, Roger , D.O. region 08/29/2019 F33.0 Major depressive disorder, recurrent, mild Sopchak, Roger, D.O. 08/29/2019 M15.0 Primary generalized (osteo)arthritis Sopchak, Roger, D.O. 08/29/2019 M79.10 Myalgia, unspecified site Sopchak, Roger, D.O. 08/29/2019 K59.00 Constipation, unspecified Sopchak, Roger, D.O. 08/29/2019 M99.00 Segmental and somatic dysfunction of head Sopchak, Roger, D.O. region 08/29/2019 M99.01 Segmental and somatic dysfunction of cervical Sopchak, Roger, D.O. region 08/29/2019 M99.08 Segmental and somatic dysfunction of rib cage Sopchak, Roger, D.O. 08/29/2019 M99.03 Segmental and somatic dysfunction of lumbar Sopchak, Roger , D.O. region 08/29/2019 M99.05 Segmental and somatic dysfunction of pelvic Sopchak, Roger , D.O. region 08/29/2019 M99.02 Segmental and somatic dysfunction of thoracic Sopchak, Roger, D.O. region 08/29/2019 M99.04 Segmental and somatic dysfunction of sacral Sopchak, Roger , D.O. region 07/20/2019 M54.2 Cervicalgia Sopchak, Roger, D.O. 07/20/2019 M54.5 Low back pain Roger Shen D.O. 07/20/2019 F33.0 Major depressive disorder, recurrent, mild Roger Shen D.O. 07/20/2019 M15.0 Primary generalized (osteo)arthritis Roger Shen, D.O. 07/20/2019 M99.00 Segmental and somatic dysfunction of head SopkasandrakRoger D.O. region 07/20/2019 M99.02 Segmental and somatic dysfunction of thoracic SopRoger david D.O. region 07/20/2019 M99.03 Segmental and somatic dysfunction of lumbar SopkasandrakRoger , D.O. region 07/20/2019 M99.04 Segmental and somatic dysfunction of sacral SopRoger david D.O. region 07/20/2019 M99.05 Segmental and somatic dysfunction of pelvic SopRoger david , D.O. region 07/20/2019 M99.01 Segmental and somatic dysfunction of cervical SopRoger david D.O. region 07/20/2019 M99.08 Segmental and somatic dysfunction of rib cage Roger Shen D.O. 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 graft(s) without a Plan of Treatment Future Appointment(s):03/28/2020 12:55 pm - Roger Shen D.O. at Main Udfmhn0602/15/2020 12:55 pm - Roger Shen D.O. at Main Aniyia9401/02/2020 - Roger Shen D.O.F33.0 Major depressive disorder, recurrent, mildFollow up: as scheduled 6 weeks and 12 weeks recheck OMME Back/Neck pain/Weight/ UunniplduwB34.10 Myalgia, unspecified siteK59.00 Constipation, ooetrkmdwsgG15 MwpgrP10.0 Primary generalized (osteo)gllahkuawD01.2 MnfnullhzylP25.5 Low back painR01.1 Cardiac murmur, bnuebibxwkmB26.05 Segmental and somatic dysfunction of pelvic omfialC98.03 Segmental and somatic dysfunction of lumbar wjrvwsF83.04 Segmental and somatic dysfunction of sacral oouddsM37.00 Segmental and somatic dysfunction of head ljjhfwW30.01 Segmental and somatic dysfunction of cervical cwjsmeC71.08 Segmental and somatic dysfunction of rib cageM99.02 Segmental and somatic dysfunction of thoracic lhphnlH80.07 Segmental and somatic dysfunction of upper extremity Functional Status Description No Information Available Mental Status Description No Information Available Referrals Description No Information Available
[2020-01-30 10:21] VITALS: BP 139/59
--- NOTE | 2020-01-30 10:30 | UC ---
Shortness of Breath HPI - HPI Summary HPI Summary: 74-year-old woman comes in with chief complaint of shortness of breath. It's been getting worse for about a week. She's also noticed weight gain and increased pedal edema. Does have a history of CHF. Is on torsemide which she feels like it is not helping anymore. Denies any chest pain. She did have a sore throat with some congestion. Shortness of breath is at all times and it is worse with activity. - History of Current Complaint Chief Complaint: UCRespiratory Stated Complaint: SHORTNESS OF BREATH Time Seen by Provider: 01/30/20 10:05 - Allergy/Home Medications Allergies/Adverse Reactions: Allergies Allergy/AdvReac Type Severity Reaction Status Date / Time No Known Allergies Allergy Verified 01/30/20 10:19 Home Medications: Home Medications Carvedilol TAB* [Coreg TAB*] 6.25 mg PO BID 05/22/14 [History Confirmed 02/15/18 ] Docusate CAP* [Colace Cap*] 100 mg PO DAILY PRN 05/22/14 [History Confirmed ] Potassium Chlor TAB* [Potassium Chlor TAB 20 MEQ*] 20 meq PO BID 05/22/14 [ History Confirmed 02/15/18] Torsemide TAB* [Demadex 20 MG*] 20 mg PO BID 05/22/14 [History Confirmed ] clonazePAM TAB(*) [Klonopin TAB(*)] 1 mg PO TID 05/22/14 [History Confirmed ] Oxybutynin TAB* [Ditropan TAB*] 5 mg PO TID 06/12/14 [History Confirmed 02/15/18 ] Omeprazole CAP (NF) [Prilosec CAP* 20 MG] 20 mg PO DAILY PRN 03/09/15 [History Confirmed 02/15/18] Zolpidem TAB* [Ambien*] 10 mg PO BEDTIME PRN 03/09/15 [History Confirmed ] oxyCODONE TAB* [Roxycodone TAB 5 mg*] 5 mg PO Q8H PRN #9 tab MDD 3 01/28/16 [Rx Confirmed 02/15/18] Aspirin EC TAB* [Ecotrin EC Low Dose 81 MG*] 81 mg PO DAILY 02/15/18 [History Confirmed 02/15/18] BuPROPion XL* [Bupropion XL*] 300 mg PO DAILY 02/15/18 [History Confirmed ] Multivitamins/Minerals TAB* [Theragran/minerals TAB*] 1 tab PO DAILY 02/15/18 [ History Confirmed 02/15/18] Rosuvastatin (NF) [Crestor (NF)] 40 mg PO BEDTIME 02/15/18 [History Confirmed ] Warfarin TAB(*) [Coumadin TAB(*)] 2 - 3 mg PO DAILY 02/15/18 [History Confirmed 02/15/18] buPROPion SR TAB* [Wellbutrin SR TAB*] 100 mg PO DAILY 02/15/18 [History Confirmed 02/15/18] Amoxicillin/Clavulanate TAB* [Augmentin TAB 500 mg*] 500 mg PO BID #10 tab 02/26 [Rx] Aspirin EC TAB* [Ecotrin EC Low Dose 81 MG*] 81 mg PO DAILY tab.ec 02/26/18 [Rx ] Atorvastatin* [Lipitor 80 MG*] 80 mg PO BEDTIME tab 02/26/18 [Rx] BuPROPion XL* [Bupropion XL*] 300 mg PO DAILY tab.xl 02/26/18 [Rx] Carvedilol TAB* [Coreg TAB*] 6.25 mg PO BID tab 02/26/18 [Rx] Docusate CAP* [Colace Cap*] 100 mg PO BEDTIME PRN cap 02/26/18 [Rx] Nystatin TOP POWDER* 1 applic TOPICAL BID #1 btl 02/26/18 [Rx] Omeprazole CAP (NF) [Prilosec CAP* 20 MG] 20 mg PO DAILY PRN cap.dr 02/26/18 [ Rx] Oxybutynin TAB* [Ditropan TAB*] 5 mg PO TID tab 02/26/18 [Rx] Potassium Chlor TAB* [Potassium Chlor TAB 20 MEQ*] 20 meq PO BID tab.er [Rx] QUEtiapine TAB* [Seroquel 100 MG *] 100 mg PO BEDTIME 15 Days #15 tab 02/26/18 [ Rx] Torsemide TAB* [Demadex 20 MG*] 20 mg PO 0700,1600 tab 02/26/18 [Rx] Venlafaxine ER (NF) [Effexor ER (NF)] 150 mg PO DAILY 15 Days #15 cap 02/26/18 [ Rx] Venlafaxine EXT RELEASE CAP* [Effexor Xr CAP*] 75 mg PO DAILY 15 Days #15 cap.sr 02/26/18 [Rx] Venlafaxine EXT RELEASE CAP* [Effexor Xr CAP*] 225 mg PO DAILY 15 Days #45 cap.sr 02/26/18 [Rx] buPROPion SR TAB* [Wellbutrin SR TAB*] 100 mg PO QAM tab.sr 02/26/18 [Rx] clonazePAM TAB(*) [Klonopin TAB(*)] 1 mg PO BID tab MDD 3 02/26/18 [Rx] clonazePAM TAB(*) [Klonopin TAB(*)] 1 mg PO ONCE PRN tab MDD 3 02/26/18 [Rx] guaiFENesin/CODIENE 100mg/10mg [Robitussin AC 100Mg/10Mg in 5 ml] 5 ml PO Q4H PRN #300 udc MDD 30 ml 02/26/18 [Rx] PMH/Surg Hx/FS Hx/Imm Hx Previously Healthy: Yes - morbid obesity Cardiovascular History: Cardiac Disease, Congestive Heart Failure Other Cardiovascular History: artificial mitral valve GI/ History: Gastroesophageal Reflux Other History Of: Anticoagulant Therapy - 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 - Social History Alcohol Use: None Substance Use Type: None Smoking Status (MU): Never Smoked Tobacco Have You Smoked in the Last Year: No - Pt has not used tobacco products within the last 30 days - Immunization History Most Recent Influenza Vaccination: 09/28/2017 Most Recent Pneumonia Vaccination: never Review of Systems All Other Systems Reviewed And Are Negative: Yes Constitutional: Positive: Other - SEE HPI Skin: Positive: Negative Eyes: Positive: Negative ENT: Positive: Sore Throat Respiratory: Positive: Shortness Of Breath, Other - SEE HPI Cardiovascular: Positive: Negative Gastrointestinal: Positive: Negative Motor: Positive: Negative Neurovascular: Positive: Negative Musculoskeletal: Positive: Edema Neurological/Mental Status: Positive: Negative Psychological: Positive: Negative Is Patient Immunocompromised?: No Physical Exam Triage Information Reviewed: Yes Appearance: Well-Appearing, No Pain Distress, Well-Nourished Vital Signs: Initial Vital Signs Temp 97.8 F 01/30/20 10:11 Pulse 81 01/30/20 10:11 Resp 18 01/30/20 10:11 BP 139/59 01/30/20 10:11 Pulse Ox 96 01/30/20 10:11 Vital Signs Reviewed: Yes Eye Exam: Normal Eyes: Positive: Conjunctiva Clear ENT: Negative: Nasal congestion, Nasal drainage Neck: Positive: Supple Respiratory: Positive: Lungs clear, Normal breath sounds, No respiratory distress Cardiovascular: Positive: Other: - Mechanical valve click Musculoskeletal: Positive: Edema @ - Bilateral pedal edema with mild calf tenderness bilaterally to palpation Neurological: Positive: Alert, Muscle Tone Normal Psychological: Positive: Age Appropriate Behavior Skin Exam: Normal Diagnostics - EKG Cardiac Rate: NL - AT 1004 Cardiac Rhythm: Sinus: Normal - 88BPM Ectopy: None - Nonspecific interventricular conduction delay, minimal ST depression Shortness of Breath Dx - Course Course Of Treatment: I discussed the EKG with the patient. When compared to the 19/03/18 EKG no obvious difference. With the patient's increasing shortness of breath I recommended further evaluation emergency Department patient preferred to go by POV. - Differential Dx/Diagnosis Provider Diagnosis: Shortness of breath Discharge ED - Sign-Out/Discharge Documenting (check all that apply): Patient Departure All imaging exams completed and their final reports reviewed: No Studies - Discharge Plan Condition: Stable Disposition: HOME-RECOMMEND TO ED Patient Education Materials: Shortness of Breath (ED) Referrals: Roger Shen DO [Primary Care Provider] - Additional Instructions: GO DIRECTLY TO THE EMERGENCY DEPARTMENT FOR FURTHER EVALUATION. - Billing Disposition and Condition Condition: STABLE Disposition: Home-Recommend to ED
== END 2020-01-30 10:39 | disposition home health service (06) ==
LOC: UCEAST 10:03
DX: R06.02 Shortness of breath (principal); R60.0 Localized edema; J02.9 Acute pharyngitis, unspecified; K21.9 Gastro-esophageal reflux disease without esophagitis; D69.6 Thrombocytopenia, unspecified; I50.9 Heart failure, unspecified; Z79.899 Other long term (current) drug therapy; Z79.82 Long term (current) use of aspirin; Z79.01 Long term (current) use of anticoagulants; Z95.2 Presence of prosthetic heart valve; Z95.1 Presence of aortocoronary bypass graft; Z86.2 Personal history of diseases of the blood and blood-forming organs and certain disorders involving the immune mechanism; I11.0 Hypertensive heart disease with heart failure; I25.10 Atherosclerotic heart disease of native coronary artery without angina pectoris; E78.00 Pure hypercholesterolemia, unspecified; G47.33 Obstructive sleep apnea (adult) (pediatric); F41.9 Anxiety disorder, unspecified; Z86.14 Personal history of Methicillin resistant Staphylococcus aureus infection; Z86.711 Personal history of pulmonary embolism; M19.90 Unspecified osteoarthritis, unspecified site
CPT/HCPCS: 93005; 99212; G0463

== ENCOUNTER 2020-01-30 10:59 | Emergency (ER) | payer MEDICARE, MEDICAID ==
[2020-01-30 12:55] LABS: ABS Eosinophils 0.2 10^3/ul (0-0.6); ABS Lymphocytes 1.1 10^3/ul (1.0-4.8); ABS Monocytes 0.4 10^3/ul (0-0.8); ABS Neutrophils 4.2 10^3/ul (1.5-7.7); Eosinophil % 3.6 %; Hematocrit 43 % (35-47); Hemoglobin 14.4 g/dL (12.0-16.0); Lymphocyte % 18.2 %; Mean Corpuscular HGB Conc 33 g/dL (31-36); Mean Corpuscular Hemoglobin 28 pg (27-31); Mean Corpuscular Volume 84 fL (80-97); Mean Platelet Volume 8.7 fL (7.4-10.4); Platelet Count 130 10^3/uL (150-450); Red Blood Count 5.16 10^6 /uL (3.70-4.87); Red Cell Distribution Width 18 % (10-15)
[2020-01-30 13:15] LABS: Troponin I 0.01 ng/mL (<0.03)
[2020-01-30 13:23] LABS: Albumin 4.2 g/dL (3.2-5.2); Albumin/Globulin Ratio 1.4 (1-3); BUN/Creatinine Ratio 22.1 (8-20); Calcium 9.9 mg/dL (8.6-10.3); EGFR African American 89.2 (>60); EGFR Non-African American 73.7 (>60); Potassium 4.1 mmol/L (3.5-5.0); Total Bilirubin 0.8 mg/dL (0.2-1.0); Total Protein 7.2 g/dL (6.4-8.9)
--- NOTE | 2020-01-30 15:32 | ED ---
Shortness of Breath - HPI Summary HPI Summary: 74 year old female presents with increased swelling in her legs for the past 2 weeks. States she admits shortness breath in addition for past 2 weeks. She states that she was diagnosed with laryngitis 3 weeks ago and has since had a dry cough. States the cough has persisted. No fevers. She denies any current shortness of breath. She has been taking torsemide. Denies any nausea vomiting. She is on warfarin for her pacemaker. States that she also has a rash on her right foot. she denies any chest pain. no history of blood clots. no recent travel. no family history of blood clots. - History of Current Complaint Chief Complaint: EDShortnessOfBreath Time Seen by Provider: 01/30/20 15:17 - Allergy/Home Medications Allergies/Adverse Reactions: Allergies Allergy/AdvReac Type Severity Reaction Status Date / Time No Known Allergies Allergy Verified 01/30/20 10:19 Home Medications: Home Medications clonazePAM TAB(*) [Klonopin TAB(*)] 1 mg PO TID 05/22/14 [History Confirmed 01/19] Multivitamins/Minerals TAB* [Theragran/minerals TAB*] 1 tab PO DAILY 02/15/18 [ History Confirmed 01/30/20] Rosuvastatin (NF) [Crestor (NF)] 40 mg PO BEDTIME 02/15/18 [History Confirmed ] Warfarin TAB(*) [Coumadin TAB(*)] 2 - 4 mg PO DAILY 02/15/18 [History Confirmed 01/30/20] Aspirin EC TAB* [Ecotrin EC Low Dose 81 MG*] 81 mg PO DAILY tab.ec 02/26/18 [ Rx Confirmed 01/30/20] Oxybutynin TAB* [Ditropan TAB*] 5 mg PO TID tab 02/26/18 [Rx Confirmed 01/30/20 ] Torsemide TAB* [Demadex 20 MG*] 20 mg PO 0700,1600 tab 02/26/18 [Rx Confirmed 01/30/20] Amoxicillin 875 mg PO ONCE PRN 01/30/20 [History Confirmed 01/30/20] Cholecalciferol (Vitamin D3) [Vitamin D3] 5,000 unit PO DAILY 01/30/20 [History Confirmed 01/30/20] Cromolyn SPRAY 5.2 MG/ACT(NF) [Cromolyn SPRAY(NF)] 1 spray INH TID PRN 01/30/20 [History Confirmed 01/30/20] Cromolyn Sodium 1 drop OPHTHALMIC QID PRN 01/30/20 [History Confirmed 01/30/20] Cyanocobalamin TAB* [Vitamin B12 TAB*] 1,000 mcg PO QPM 01/30/20 [History Confirmed 01/30/20] Docusate CAP* [Colace Cap*] 100 mg PO BID PRN 01/30/20 [History Confirmed ] Enoxaparin(*) [Lovenox(*)] 150 mg SUBCUT BID PRN 01/30/20 [History Confirmed 01/19] Ezetimibe TAB* [Zetia TAB*] 10 mg PO DAILY 01/30/20 [History Confirmed 01/30/20] Ferrous Sulfate TAB* 325 mg PO DAILY 01/30/20 [History Confirmed 01/30/20] Naproxen Sodium [Aleve] 1 dose PO BID PRN 01/30/20 [History Confirmed 01/30/20] Nystatin TOP POWDER* 1 applic TOPICAL BID PRN 01/30/20 [History Confirmed ] Omeprazole CAP (NF) [Prilosec CAP* 20 MG] 40 mg PO DAILY PRN 01/30/20 [History Confirmed 01/30/20] Polyethylene Glycol 3350 BTL* [Miralax (FULL BULK BOTTLE)] 1 powder PO DAILY 01/19 [History Confirmed 01/30/20] Potassium Chlor TAB* [Potassium Chlor TAB 20 MEQ*] 40 meq PO DAILY 01/30/20 [ History Confirmed 01/30/20] Suvorexant [Belsomra] 5 mg PO BEDTIME 01/30/20 [History Confirmed 01/30/20] celeCOXIB CAP* [CeleBREX CAP*] 100 mg PO BID WITH MEALS 01/30/20 [History Confirmed 01/30/20] clonazePAM TAB(*) [KlonoPIN TAB(*)] 2 mg PO TID PRN 01/30/20 [History Confirmed 01/30/20] dilTIAZem HCl [Dilt-Xr] 120 mg PO DAILY 01/30/20 [History Confirmed 01/30/20] hydrOXYzine HCL TAB* [Atarax 25 MG TAB*] 25 mg PO BEDTIME PRN 01/30/20 [History Confirmed 01/30/20] oxyCODONE TAB* [Roxycodone TAB 5 mg*] 5 - 10 mg PO Q6HR PRN 01/30/20 [History Confirmed 01/30/20] PMH/Surg Hx/FS Hx/Imm Hx Endocrine/Hematology History: Reports: Hx Anticoagulant Therapy - pt reports having "chronic mild low platelets", Hx Blood Disorders - thrombocytopenia, pancytopenia, Hx Anemia - s/p CABG Denies: Hx Blood Transfusions, Hx Bone Marrow Disease, Hx Diabetes, Hx Systemic Lupus Erythematosus, Hx Thyroid Disease Cardiovascular History: Reports: Hx Coronary Artery Disease, Hx Hypercholesterolemia, Hx Hypertension - pt stated, Hx Valvular Heart Disease - mitral valve replacement 2004 & 2009 Denies: Hx Pacemaker/ICD Respiratory History: Reports: Hx Pulmonary Embolism, Hx Sleep Apnea - ISHA dx, refused CPAP, Other Respiratory Problems/Disorders - pulmonary HTN Denies: Hx Asthma, Hx Chronic Obstructive Pulmonary Disease (COPD), Hx Pneumonia GI History: Denies: Hx Cirrhosis, Hx Crohn's Disease, Hx Diverticulosis, Hx Gall Bladder Disease, Hx Gastroesophageal Reflux Disease, Hx Gastrointestinal Bleed, Hx Ulcer History: Denies: Hx Acute Renal Failure - pt stated Musculoskeletal History: Reports: Hx Arthritis - osteo Denies: Hx Osteoporosis, Hx Scoliosis, Hx Tendonitis Sensory History: Reports: Hx Contacts or Glasses - far sighted Denies: Hx Hearing Aid Opthamlomology History: Reports: Hx Contacts or Glasses - far sighted Psychiatric History: Reports: Hx Anxiety, Hx Eating Disorder, Hx Depression, 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 [employer] Denies: Hx Suicide Attempt, Hx of Violent Episodes Against Others - Cancer History Hx Chemotherapy: No Hx Radiation Therapy: No - Surgical History Surgery Procedure, Year, and Place: 2005 - mitral valve replacement, 2010 [facility]- 2nd mitral valve replacement, CABG Infectious Disease History: No Infectious Disease History: Reports: 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 - Social History Alcohol Use: None Substance Use Type: Reports: None Smoking Status (MU): Never Smoked Tobacco Have You Smoked in the Last Year: No - Pt has not used tobacco products within the last 30 days Review of Systems Negative: Fever Negative: Chest Pain Positive: Shortness Of Breath Positive: Edema All Other Systems Reviewed And Are Negative: Yes Physical Exam Triage Information Reviewed: Yes Vital Signs On Initial Exam: Initial Vitals Temp Pulse Resp BP Pulse Ox 97.8 F 96 20 161/76 95 01/30/20 11:05 01/30/20 11:05 01/30/20 11:05 01/30/20 11:05 01/30/20 11:05 Vital Signs Reviewed: Yes Appearance: Positive: Well-Appearing Skin: Positive: Warm, Dry Head/Face: Positive: Normal Head/Face Inspection Procedures - Sedation Patient Received Moderate/Deep Sedation with Procedure: No Diagnostics - Vital Signs Vital Signs Temp Pulse Resp BP Pulse Ox 01/30/20 14:57 98.7 F 88 18 155/65 95 01/30/20 13:15 98.1 F 69 14 115/56 93 01/30/20 11:05 97.8 F 96 20 161/76 95 - Laboratory Lab Results: Lab Results 01/30/20 01/30/20 01/30/20 Range/Units 12:39 12:39 12:39 WBC 6.0 (3.5-10.8) 10^3/uL RBC 5.16 H (3.70-4.87) 10^6 /uL Hgb 14.4 (12.0-16.0) g/dL Hct 43 (35-47) % MCV 84 (80-97) fL MCH 28 (27-31) pg MCHC 33 (31-36) g/dL RDW 18 H (10-15) % Plt Count 130 L (150-450) 10^3/uL MPV 8.7 (7.4-10.4) fL Neut % (Auto) 70.6 % Lymph % (Auto) 18.2 % [place] % (Auto) 7.0 % Eos % (Auto) 3.6 % Baso % (Auto) 0.6 % Absolute Neuts (auto) 4.2 (1.5-7.7) 10^3/ul Absolute Lymphs (auto) 1.1 (1.0-4.8) 10^3/ul Absolute Monos (auto) 0.4 (0-0.8) 10^3/ul Absolute Eos (auto) 0.2 (0-0.6) 10^3/ul Absolute Basos (auto) 0.0 (0-0.2) 10^3/ul Absolute Nucleated RBC 0.0 10^3/ul Nucleated RBC % 0.0 Sodium 145 (135-145) mmol/L Potassium 4.1 (3.5-5.0) mmol/L Chloride 111 (101-111) mmol/L Carbon Dioxide 28 (22-32) mmol/L Anion Gap 6 (2-11) mmol/L BUN 17 (6-24) mg/dL Creatinine 0.77 (0.51-0.95) mg/dL Est GFR ( Amer) 89.2 (>60) Est GFR (Non-Af Amer) 73.7 (>60) BUN/Creatinine Ratio 22.1 H (8-20) Glucose 99 (70-100) mg/dL Lactic Acid 1.4 (0.5-2.0) mmol/L Calcium 9.9 (8.6-10.3) mg/dL Total Bilirubin 0.80 (0.2-1.0) mg/dL AST 22 (13-39) U/L ALT 14 (7-52) U/L Alkaline Phosphatase 103 (34-104) U/L Troponin I 0.01 (<0.03) ng/mL B-Natriuretic Peptide (<=100) pg/mL Total Protein 7.2 (6.4-8.9) g/dL Albumin 4.2 (3.2-5.2) g/dL Globulin 3.0 (2-4) g/dL Albumin/Globulin Ratio 1.4 (1-3) 01/30/20 Range/Units 12:39 WBC (3.5-10.8) 10^3/uL RBC (3.70-4.87) 10^6 /uL Hgb (12.0-16.0) g/dL Hct (35-47) % MCV (80-97) fL MCH (27-31) pg MCHC (31-36) g/dL RDW (10-15) % Plt Count (150-450) 10^3/uL MPV (7.4-10.4) fL Neut % (Auto) % Lymph % (Auto) % Independence % (Auto) % Eos % (Auto) % Baso % (Auto) % Absolute Neuts (auto) (1.5-7.7) 10^3/ul Absolute Lymphs (auto) (1.0-4.8) 10^3/ul Absolute Monos (auto) (0-0.8) 10^3/ul Absolute Eos (auto) (0-0.6) 10^3/ul Absolute Basos (auto) (0-0.2) 10^3/ul Absolute Nucleated RBC 10^3/ul Nucleated RBC % Sodium (135-145) mmol/L Potassium (3.5-5.0) mmol/L Chloride (101-111) mmol/L Carbon Dioxide (22-32) mmol/L Anion Gap (2-11) mmol/L BUN (6-24) mg/dL Creatinine (0.51-0.95) mg/dL Est GFR ( Amer) (>60) Est GFR (Non-Af Amer) (>60) BUN/Creatinine Ratio (8-20) Glucose (70-100) mg/dL Lactic Acid (0.5-2.0) mmol/L Calcium (8.6-10.3) mg/dL Total Bilirubin (0.2-1.0) mg/dL AST (13-39) U/L ALT (7-52) U/L Alkaline Phosphatase (34-104) U/L Troponin I (<0.03) ng/mL B-Natriuretic Peptide 58 (<=100) pg/mL Total Protein (6.4-8.9) g/dL Albumin (3.2-5.2) g/dL Globulin (2-4) g/dL Albumin/Globulin Ratio (1-3) Result Diagrams: 01/30/20 12:39 01/30/20 12:39 Lab Statement: Any lab studies that have been ordered have been reviewed, and results considered in the medical decision making process. - Radiology chest Radiology Interpretation Completed By: Radiologist Summary of Radiographic Findings: IMPRESSION: #. The constellation of findings given the provided history favors mild interstitial edema superimposed on probable chronic obstructive pulmonary disease. - EKG No standard instances Cardiac Rate: NL EKG Rhythm: Sinus Rhythm EKG Comparison: No Significant Change Summary of EKG Findings: sinus rhythm, RBBB Course/Dx - Course Course Of Treatment: 74 year old female presents with increased swelling in her legs for the past 2 weeks. States she admits shortness breath in addition for past 2 weeks. She states that she was diagnosed with laryngitis 3 weeks ago and has since had a dry cough. States the cough has persisted. No fevers. She denies any current shortness of breath. She has been taking torsemide. Denies any nausea vomiting. She is on warfarin for her pacemaker. States that she also has a rash on her right foot. she denies any chest pain. no history of blood clots. no recent travel. no family history of blood clots. On exam mild edema noted to legs. lungs CTA. wbc normal. bnp 58. troponin .01. kidney function normal. chest xray shows mild interstitial disease. patient was weighted today and states weight is better. discussed will give torsemide dose at current dose as lung CTA, legs appear okay and bnp normal. told follow up with primary. patient understand and agrees with plan. - Diagnoses Differential Diagnosis/HQI/PQRI: Positive: CHF, Pneumonia, Pulmonary Edema Provider Diagnoses: Shortness of breath, Leg edema Discharge ED - Sign-Out/Discharge Documenting (check all that apply): Patient Departure - Discharge Plan Condition: Good Disposition: HOME Patient Education Materials: Leg Edema (ED) Referrals: Roger Shen DO [Primary Care Provider] - Tricia Jennings MD [Medical Doctor] - Additional Instructions: elevate legs, use compression socks continue mediation as prescribe follow up with primary within 5 days follow up with cardiology Return to ED if develop any new or worsening symptoms - Billing Disposition and Condition Condition: GOOD Disposition: Home
[2020-01-30 16:34] VITALS: BP 120/67
== END 2020-01-30 16:10 | disposition home or self-care (01) ==
LOC: ED 10:59
DX: R06.02 Shortness of breath (principal); R60.9 Edema, unspecified; Z86.2 Personal history of diseases of the blood and blood-forming organs and certain disorders involving the immune mechanism; I25.10 Atherosclerotic heart disease of native coronary artery without angina pectoris; E78.00 Pure hypercholesterolemia, unspecified; I10 Essential (primary) hypertension; G47.33 Obstructive sleep apnea (adult) (pediatric); F41.9 Anxiety disorder, unspecified; M19.90 Unspecified osteoarthritis, unspecified site; Z95.1 Presence of aortocoronary bypass graft; Z79.01 Long term (current) use of anticoagulants; Z79.899 Other long term (current) drug therapy; Z95.4 Presence of other heart-valve replacement; Z86.711 Personal history of pulmonary embolism; Z86.14 Personal history of Methicillin resistant Staphylococcus aureus infection
CPT/HCPCS: 36415; 71046; 80053; 83605; 83880; 84484; 85025; 93005; 99283

== ENCOUNTER 2021-10-31 17:42 | Inpatient (IN) ==
[2021-10-31 18:53] LABS: Rapid COVID-19 Molecular Undetected (Undetected)
[2021-10-31] MEDS ORDERED: Furosemide 40 mg/4 ml IV VIAL IV SLOW PU ONE (19:39)
[2021-10-31 20:04] LABS: ABS Eosinophils 0.2 10^3/ul (0-0.6); ABS Lymphocytes 0.7 10^3/ul (1.0-4.8); ABS Monocytes 0.3 10^3/ul (0-0.8); ABS Neutrophils 3.3 10^3/ul (1.5-7.7); Eosinophil % 3.6 %; Hematocrit 39 % (35-47); Hemoglobin 12.5 g/dL (12.0-16.0); Lymphocyte % 14.7 %; Mean Corpuscular HGB Conc 32 g/dL (31-36); Mean Corpuscular Hemoglobin 27 pg (27-31); Mean Corpuscular Volume 84 fL (80-97); Mean Platelet Volume 8.6 fL (7.4-10.4); Platelet Count 106 10^3/uL (150-450); Red Blood Count 4.62 10^6 /uL (3.70-4.87); Red Cell Distribution Width 20 % (10-15); White Blood Count 4.5 10^3/uL (3.5-10.8)
[2021-10-31 20:09] LABS: INR 3.21 (0.86-1.15)
[2021-10-31 20:22] LABS: Albumin 3.9 g/dL (3.2-5.2); Albumin/Globulin Ratio 1.4 (1-3); Calcium 9.5 mg/dL (8.6-10.3); Globulin 2.8 g/dL (2-4); HDL Cholesterol 34.2 mg/dL; Potassium 3.6 mmol/L (3.5-5.0); Total Bilirubin 1.7 mg/dL (0.2-1.0); Total Protein 6.7 g/dL (6.4-8.9); Troponin I 0.01 ng/mL (<0.03); eGFR CKD-EPI 74.4 (>60)
[2021-10-31] MEDS ORDERED: Potassium Chloride LIQUID 20 MEQ/15 ML LIQUID PO ONE (20:27)
[2021-10-31 20:42] LABS: Magnesium 2.1 mg/dL (1.9-2.7)
[2021-10-31] MEDS ORDERED: Warfarin per PHARMACY **NOTE FOLLOW UP SCH (21:00)
[2021-10-31] MEDS: Nystatin TOP POWDER 15 GM BTL TOPICAL PRN (22:52)
[2021-11-01] MEDS ORDERED: Diltiazem IV push/loading dose 5 MG/ML 5 ML vial (25 mg) IV SLOW PU ONE (02:27)
[2021-11-01 06:00] LABS: INR 3.14 (0.86-1.15)
[2021-11-01] MEDS ORDERED: Furosemide 40 mg/4 ml IV VIAL IV SLOW PU SCH (06:00)
[2021-11-01 07:39] LABS: Albumin 3.9 g/dL (3.2-5.2); Albumin/Globulin Ratio 1.3 (1-3); Calcium 9.4 mg/dL (8.6-10.3); Globulin 2.9 g/dL (2-4); Magnesium 2.1 mg/dL (1.9-2.7); Potassium 3.5 mmol/L (3.5-5.0); Total Bilirubin 1.8 mg/dL (0.2-1.0); Total Protein 6.8 g/dL (6.4-8.9); eGFR CKD-EPI 77.8 (>60)
[2021-11-01] MEDS: Potassium Chloride LIQUID 20 MEQ/15 ML LIQUID PO SCH (08:11)
[2021-11-01] MEDS: Aspirin EC 81 mg TAB.EC (enteric coated) PO SCH (08:12)
[2021-11-01] MEDS ORDERED: Digoxin IV 0.5 MG/2 ML AMP (0.25 MG/ML) IV SLOW PU ONE (14:00)
[2021-11-01 15:16] LABS: Urine Appearance Cloudy; Urine Bilirubin Negative (Negative); Urine Blood Negative (Negative); Urine Color Yellow; Urine Glucose Negative (Negative); Urine Ketones Negative (Negative); Urine Nitrite Negative (Negative); Urine Protein Negative (Negative); Urine Specific Gravity 1.014 (1.002-1.030); Urine Urobilinogen Negative (Negative)
[2021-11-01] MEDS: Warfarin DAILY REMINDER **NOTE FOLLOW UP SCH (17:13)
[2021-11-01] MEDS: Bumetanide IV 0.25 MG/ML 4 ml VIAL (1 mg) SLOW PUSH SCH ×2 (17:13→23:29)
[2021-11-01] MEDS ORDERED: Bumetanide IV 0.25 MG/ML 4 ml VIAL (1 mg) SLOW PUSH SCH (21:00)
[2021-11-02 06:19] LABS: INR 3.62 (0.86-1.15)
[2021-11-02 06:30] LABS: Calcium 9.2 mg/dL (8.6-10.3); Magnesium 2.1 mg/dL (1.9-2.7); Potassium 3.5 mmol/L (3.5-5.0); eGFR CKD-EPI 60.2 (>60)
[2021-11-02] MEDS ORDERED: Magnesium Sulfate 2 gm BAG 2 GM/50 ML BAG IVPB ONE (07:17)
[2021-11-02] MEDS: Aspirin EC 81 mg TAB.EC (enteric coated) PO SCH (08:46)
[2021-11-02] MEDS: Bumetanide IV 0.25 MG/ML 4 ml VIAL (1 mg) SLOW PUSH SCH (08:47)
[2021-11-02] MEDS: Potassium Chloride LIQUID 20 MEQ/15 ML LIQUID PO SCH (09:05)
[2021-11-02] MEDS ORDERED: Warfarin - No Order Today **NOTE FOLLOW UP ONE (17:00)
[2021-11-02] MEDS: Warfarin DAILY REMINDER **NOTE FOLLOW UP SCH (17:11)
[2021-11-03 05:45] LABS: INR 3.77 (0.86-1.15)
[2021-11-03 05:57] LABS: Calcium 8.9 mg/dL (8.6-10.3); Magnesium 2.3 mg/dL (1.9-2.7); Potassium 3.4 mmol/L (3.5-5.0); eGFR CKD-EPI 54.2 (>60)
[2021-11-03] MEDS: Potassium Chloride LIQUID 20 MEQ/15 ML LIQUID PO SCH (09:41)
[2021-11-03] MEDS: Aspirin EC 81 mg TAB.EC (enteric coated) PO SCH (09:41)
[2021-11-03] MEDS ORDERED: Polyethylene Glycol 3350 17 GM PACKET PO PRN (13:52)
[2021-11-03] MEDS: Warfarin DAILY REMINDER **NOTE FOLLOW UP SCH (16:51)
[2021-11-03] MEDS ORDERED: Warfarin - No Order Today **NOTE FOLLOW UP ONE (17:00)
[2021-11-04 06:11] LABS: INR 2.83 (0.86-1.15)
[2021-11-04 06:36] LABS: Calcium 9.1 mg/dL (8.6-10.3); Magnesium 2.3 mg/dL (1.9-2.7); Potassium 3.6 mmol/L (3.5-5.0); eGFR CKD-EPI 62.5 (>60)
[2021-11-04] MEDS ORDERED: Potassium Chlor 20 meq TAB.ER PO SCH (09:00)
[2021-11-04] MEDS: Aspirin EC 81 mg TAB.EC (enteric coated) PO SCH (09:54)
[2021-11-04] MEDS: Nystatin TOP POWDER 15 GM BTL TOPICAL PRN (09:59)
[2021-11-04 15:39] VITALS: BP 126/78
[2021-11-04] MEDS: Warfarin DAILY REMINDER **NOTE FOLLOW UP SCH (17:08)
[2021-11-04] MEDS ORDERED: Lidocaine Patch REMOVE NOTE PATCH OFF SCH (21:00)
[2021-11-05] MEDS ORDERED: Lidocaine PATCH 5% PATCH TRANSDERM SCH (09:00)
== END 2021-11-04 17:13 | disposition home or self-care (01) | DRG 291 ==
LOC: MEDTELE 17:42 → SUATTDRO 17:42
PROVIDERS: ADMIT Internal Medicine; ATTEND Internal Medicine

== ENCOUNTER 2022-03-15 19:17 | Inpatient (IN) ==
[2022-03-15] MEDS ORDERED: NS 0.9% 1000 ml BAG 1,000 ML IV ONE (20:24)
[2022-03-15 21:14] LABS: ABS Lymphocytes 0.6 10^3/ul (1.0-4.8); ABS Monocytes 0.5 10^3/ul (0-0.8); ABS Neutrophils 9.1 10^3/ul (1.5-7.7); Eosinophil % 0.1 %; Hematocrit 39 % (35-47); Hemoglobin 13.3 g/dL (12.0-16.0); Lymphocyte % 5.5 %; Mean Corpuscular HGB Conc 34 g/dL (31-36); Mean Corpuscular Hemoglobin 30 pg (27-31); Mean Corpuscular Volume 88 fL (80-97); Mean Platelet Volume 8.7 fL (7.4-10.4); Platelet Count 109 10^3/uL (150-450); Red Blood Count 4.46 10^6 /uL (3.70-4.87); Red Cell Distribution Width 17 % (10-15); White Blood Count 10.2 10^3/uL (3.5-10.8)
[2022-03-15 21:35] LABS: Albumin 3.6 g/dL (3.2-5.2); Albumin/Globulin Ratio 1.4 (1-3); Calcium 8.6 mg/dL (8.6-10.3); Globulin 2.6 g/dL (2-4); Magnesium 2.1 mg/dL (1.9-2.7); Potassium 3.9 mmol/L (3.5-5.0); Total Bilirubin 0.8 mg/dL (0.2-1.0); Total Protein 6.2 g/dL (6.4-8.9); eGFR CKD-EPI 59.1 (>60)
[2022-03-15 21:49] LABS: TSH Ultra Thyroid Stim Horm 1.29 mcIU/mL (0.34-5.60)
[2022-03-15 22:44] LABS: High Sensitivity Troponin 1 Hr 24 pg/mL (<15)
[2022-03-16 00:16] LABS: Urine Appearance Clear; Urine Bilirubin Negative (Negative); Urine Blood Negative (Negative); Urine Color Amber; Urine Glucose Negative (Negative); Urine Ketones Negative (Negative); Urine Nitrite Negative (Negative); Urine Protein Negative (Negative); Urine Specific Gravity 1.027 (1.002-1.030); Urine Urobilinogen Negative (Negative)
[2022-03-16] MEDS ORDERED: Warfarin per PHARMACY **NOTE FOLLOW UP SCH (03:00)
[2022-03-16] MEDS ORDERED: Bumetanide IV 0.25 MG/ML 4 ml VIAL (1 mg) SLOW PUSH ONE (03:12)
[2022-03-16 05:48] LABS: ABS Lymphocytes 0.6 10^3/ul (1.0-4.8); ABS Monocytes 0.4 10^3/ul (0-0.8); ABS Neutrophils 5.4 10^3/ul (1.5-7.7); Eosinophil % 0.6 %; Hematocrit 36 % (35-47); Hemoglobin 11.9 g/dL (12.0-16.0); Lymphocyte % 9.8 %; Mean Corpuscular HGB Conc 33 g/dL (31-36); Mean Corpuscular Hemoglobin 29 pg (27-31); Mean Corpuscular Volume 88 fL (80-97); Mean Platelet Volume 8.7 fL (7.4-10.4); Platelet Count 93 10^3/uL (150-450); Red Blood Count 4.05 10^6 /uL (3.70-4.87); Red Cell Distribution Width 17 % (10-15); White Blood Count 6.5 10^3/uL (3.5-10.8)
[2022-03-16 05:50] LABS: INR 3.28 (0.86-1.15)
[2022-03-16 06:32] LABS: ALT 21 U/L (7-52); AST 21 U/L (13-39); Albumin 3.3 g/dL (3.2-5.2); Albumin/Globulin Ratio 1.3 (1-3); Alkaline Phosphatase 101 U/L (35-149); Anion Gap 7 mmol/L (2-11); Blood Urea Nitrogen 16 mg/dL (6-24); CO2 Carbon Dioxide 27 mmol/L (22-32); Calcium 8.2 mg/dL (8.6-10.3); Chloride 106 mmol/L (101-111); Globulin 2.6 g/dL (2-4); Glucose 84 mg/dL (70-100); Magnesium 1.9 mg/dL (1.9-2.7); Potassium 3.6 mmol/L (3.5-5.0); Sodium 140 mmol/L (135-145); Total Protein 5.9 g/dL (6.4-8.9); eGFR CKD-EPI 76.1 (>60)
[2022-03-16] MEDS: Cholecalciferol (VIT D3) 1,000 unit TAB PO SCH (09:30)
[2022-03-16] MEDS: Aspirin EC 81 mg TAB.EC (enteric coated) PO SCH (09:31)
[2022-03-16] MEDS: Polyethylene Glycol 3350 17 GM PACKET PO SCH (09:32)
[2022-03-16] MEDS: Multivitamins/Minerals TAB PO SCH (09:33)
[2022-03-16 11:14] LABS: Digoxin < 0.3 ng/ml (0.8-2.0)
[2022-03-17 06:05] LABS: INR 2.53 (0.86-1.15)
[2022-03-17 08:40] LABS: Hematocrit 37 % (35-47); Hemoglobin 12.2 g/dL (12.0-16.0); Mean Corpuscular HGB Conc 33 g/dL (31-36); Mean Corpuscular Hemoglobin 29 pg (27-31); Mean Corpuscular Volume 89 fL (80-97); Red Blood Count 4.16 10^6 /uL (3.70-4.87); Red Cell Distribution Width 17 % (10-15); White Blood Count 3.9 10^3/uL (3.5-10.8)
[2022-03-17 09:01] LABS: ABS Eosinophils 0.2 10^3/ul (0-0.6); ABS Lymphocytes 0.7 10^3/ul (1.0-4.8); ABS Monocytes 0.3 10^3/ul (0-0.8); ABS Neutrophils 2.7 10^3/ul (1.5-7.7); Eosinophil % 5.3 %; Lymphocyte % 17.5 %; Mean Platelet Volume 8.6 fL (7.4-10.4); Nucleated Red Blood Cells % 0.1; Platelet Count 90 10^3/uL (150-450)
[2022-03-17] MEDS: Cholecalciferol (VIT D3) 1,000 unit TAB PO SCH (09:06)
[2022-03-17] MEDS: Polyethylene Glycol 3350 17 GM PACKET PO SCH (09:06)
[2022-03-17] MEDS: Aspirin EC 81 mg TAB.EC (enteric coated) PO SCH (09:07)
[2022-03-17] MEDS: Multivitamins/Minerals TAB PO SCH (09:07)
[2022-03-17 09:34] LABS: Calcium 8.6 mg/dL (8.6-10.3); Potassium 3.8 mmol/L (3.5-5.0); eGFR CKD-EPI 73.9 (>60)
[2022-03-18 06:59] LABS: INR 2.32 (0.86-1.15)
[2022-03-18] MEDS: Polyethylene Glycol 3350 17 GM PACKET PO SCH (08:57)
[2022-03-18] MEDS: Cholecalciferol (VIT D3) 1,000 unit TAB PO SCH (08:58)
[2022-03-18] MEDS: Aspirin EC 81 mg TAB.EC (enteric coated) PO SCH (08:59)
[2022-03-18] MEDS: Multivitamins/Minerals TAB PO SCH (08:59)
[2022-03-18] MEDS: Warfarin DAILY REMINDER **NOTE FOLLOW UP SCH (16:57)
[2022-03-19 06:03] LABS: INR 2.44 (0.86-1.15)
[2022-03-19] MEDS: Aspirin EC 81 mg TAB.EC (enteric coated) PO SCH (08:53)
[2022-03-19] MEDS: Cholecalciferol (VIT D3) 1,000 unit TAB PO SCH (08:53)
[2022-03-19] MEDS: Multivitamins/Minerals TAB PO SCH (08:54)
[2022-03-19] MEDS: Polyethylene Glycol 3350 17 GM PACKET PO SCH (08:55)
[2022-03-19] MEDS: Warfarin DAILY REMINDER **NOTE FOLLOW UP SCH (18:34)
[2022-03-20 04:50] LABS: ABS Eosinophils 0.2 10^3/ul (0-0.6); ABS Monocytes 0.4 10^3/ul (0-0.8); ABS Neutrophils 2.6 10^3/ul (1.5-7.7); Eosinophil % 5.8 %; Hematocrit 37 % (35-47); Hemoglobin 12.4 g/dL (12.0-16.0); Lymphocyte % 23.8 %; Mean Corpuscular HGB Conc 33 g/dL (31-36); Mean Corpuscular Hemoglobin 30 pg (27-31); Mean Corpuscular Volume 89 fL (80-97); Mean Platelet Volume 8.3 fL (7.4-10.4); Nucleated Red Blood Cells % 0.1; Platelet Count 120 10^3/uL (150-450); Red Blood Count 4.19 10^6 /uL (3.70-4.87); Red Cell Distribution Width 17 % (10-15); White Blood Count 4.2 10^3/uL (3.5-10.8)
[2022-03-20 05:05] LABS: INR 2.48 (0.86-1.15)
[2022-03-20 05:30] LABS: Calcium 8.7 mg/dL (8.6-10.3)
[2022-03-20 05:36] LABS: eGFR CKD-EPI 77.3 (>60)
[2022-03-20 08:55] LABS: Magnesium 2.2 mg/dL (1.9-2.7)
[2022-03-20] MEDS: Aspirin EC 81 mg TAB.EC (enteric coated) PO SCH (08:59)
[2022-03-20] MEDS: Cholecalciferol (VIT D3) 1,000 unit TAB PO SCH (08:59)
[2022-03-20] MEDS: Multivitamins/Minerals TAB PO SCH (09:00)
[2022-03-20] MEDS: Polyethylene Glycol 3350 17 GM PACKET PO SCH (09:01)
[2022-03-20 11:54] VITALS: BP 120/65
== END 2022-03-20 15:56 | disposition home or self-care (01) | DRG 292 ==
LOC: ED 19:17 → SUATTDRO 03-16 02:18 → EDHOLD 03-16 02:18 → MEDTELE 03-16 04:54
PROVIDERS: ADMIT Internal Medicine; ATTEND Hospitalist

== ENCOUNTER 2022-04-25 10:34 | Inpatient (IN) ==
[2022-04-25 14:24] LABS: INR 2.64 (0.86-1.15)
[2022-04-25 14:25] LABS: ABS Eosinophils 0.1 10^3/ul (0-0.6); ABS Lymphocytes 0.7 10^3/ul (1.0-4.8); ABS Monocytes 0.2 10^3/ul (0-0.8); ABS Neutrophils 2.7 10^3/ul (1.5-7.7); Eosinophil % 3.7 %; Hematocrit 41 % (35-47); Hemoglobin 13.5 g/dL (12.0-16.0); Lymphocyte % 17.7 %; Mean Corpuscular HGB Conc 33 g/dL (31-36); Mean Corpuscular Hemoglobin 29 pg (27-31); Mean Corpuscular Volume 89 fL (80-97); Nucleated Red Blood Cells % 0.1; Red Blood Count 4.62 10^6 /uL (3.70-4.87); Red Cell Distribution Width 17 % (10-15); White Blood Count 3.8 10^3/uL (3.5-10.8)
[2022-04-25 14:48] LABS: ALT 32 U/L (7-52); Albumin 4.1 g/dL (3.2-5.2); Albumin/Globulin Ratio 1.6 (1-3); Alkaline Phosphatase 112 U/L (35-149); Blood Urea Nitrogen 25 mg/dL (6-24); CO2 Carbon Dioxide 32 mmol/L (22-32); Calcium 9.3 mg/dL (8.6-10.3); Chloride 106 mmol/L (101-111); Digoxin < 0.3 ng/ml (0.8-2.0); Globulin 2.5 g/dL (2-4); Glucose 83 mg/dL (70-100); Sodium 143 mmol/L (135-145); Total Protein 6.6 g/dL (6.4-8.9); eGFR CKD-EPI 58.4 (>60)
[2022-04-25 15:17] LABS: Anion Gap 5 mmol/L (2-11)
[2022-04-25 16:04] LABS: Mean Platelet Volume 9.1 fL (7.4-10.4); Platelet Count 95 10^3/uL (150-450)
[2022-04-25] MEDS ORDERED: Ondansetron 4 mg VIAL 2 MG/ML 2 ml VIAL IV PRN (17:59)
[2022-04-26 00:18] LABS: Potassium Redraw 3.6 mmol/L (3.5-5.0)
[2022-04-26 05:39] LABS: INR 2.56 (0.86-1.15)
[2022-04-26 05:53] LABS: Calcium 8.9 mg/dL (8.6-10.3); Magnesium 2.3 mg/dL (1.9-2.7); Potassium 3.6 mmol/L (3.5-5.0)
[2022-04-26 05:59] LABS: eGFR CKD-EPI 54.5 (>60)
[2022-04-26] MEDS: Multivitamins/Minerals TAB PO SCH (07:32)
[2022-04-26] MEDS: Aspirin EC 81 mg TAB.EC (enteric coated) PO SCH (07:32)
[2022-04-26] MEDS: Cholecalciferol (VIT D3) 1,000 unit TAB PO SCH (07:32)
[2022-04-26] MEDS: Warfarin DAILY REMINDER **NOTE FOLLOW UP SCH (16:23)
[2022-04-27 05:32] LABS: INR 2.33 (0.86-1.15)
[2022-04-27 05:55] LABS: Calcium 8.8 mg/dL (8.6-10.3); Potassium 4.1 mmol/L (3.5-5.0)
[2022-04-27] MEDS: Polyethylene Glycol 3350 17 GM PACKET PO PRN (07:38)
[2022-04-27] MEDS: Cholecalciferol (VIT D3) 1,000 unit TAB PO SCH (07:39)
[2022-04-27] MEDS: Aspirin EC 81 mg TAB.EC (enteric coated) PO SCH (07:39)
[2022-04-27] MEDS: Multivitamins/Minerals TAB PO SCH (07:39)
[2022-04-27] MEDS: Warfarin DAILY REMINDER **NOTE FOLLOW UP SCH (17:29)
[2022-04-27] MEDS ORDERED: Heparin DRIP 25,000 UNITS BAG 25,000 UNITS/500 ML BAG IV SCH (17:30)
[2022-04-27] MEDS ORDERED: Heparin 5000 UNITS/ML 1 mL VIAL IV SCH (18:00)
[2022-04-28 06:26] LABS: INR 2.05 (0.86-1.15)
[2022-04-28 06:29] LABS: Calcium 8.8 mg/dL (8.6-10.3); Potassium 4.5 mmol/L (3.5-5.0)
[2022-04-28 06:35] LABS: eGFR CKD-EPI 52.2 (>60)
[2022-04-28 07:10] LABS: ABS Eosinophils 0.2 10^3/ul (0-0.6); ABS Lymphocytes 1.2 10^3/ul (1.0-4.8); ABS Monocytes 0.3 10^3/ul (0-0.8); ABS Neutrophils 2.2 10^3/ul (1.5-7.7); Eosinophil % 5.8 %; Hematocrit 39 % (35-47); Hemoglobin 12.7 g/dL (12.0-16.0); Lymphocyte % 29.8 %; Mean Corpuscular HGB Conc 33 g/dL (31-36); Mean Corpuscular Hemoglobin 29 pg (27-31); Mean Corpuscular Volume 89 fL (80-97); Mean Platelet Volume 9.6 fL (7.4-10.4); Platelet Count 94 10^3/uL (150-450); Red Blood Count 4.38 10^6 /uL (3.70-4.87); Red Cell Distribution Width 16 % (10-15)
[2022-04-28] MEDS: Cholecalciferol (VIT D3) 1,000 unit TAB PO SCH (10:31)
[2022-04-28] MEDS: Aspirin EC 81 mg TAB.EC (enteric coated) PO SCH (10:31)
[2022-04-28] MEDS: Multivitamins/Minerals TAB PO SCH (10:33)
[2022-04-28] MEDS ORDERED: Heparin 5000 UNITS/ML 1 mL VIAL IV SCH (14:00)
[2022-04-28] MEDS ORDERED: Phytonadione Oral Solution 5 MG/25 ML UDC PO ONE (14:30)
[2022-04-28] MEDS: Heparin DRIP 25,000 UNITS BAG 25,000 UNITS/500 ML BAG IV SCH (15:20)
[2022-04-29 06:51] LABS: ABS Eosinophils 0.2 10^3/ul (0-0.6); ABS Monocytes 0.2 10^3/ul (0-0.8); ABS Neutrophils 1.7 10^3/ul (1.5-7.7); Eosinophil % 6.2 %; Hematocrit 38 % (35-47); Hemoglobin 12.6 g/dL (12.0-16.0); Lymphocyte % 32.2 %; Mean Corpuscular HGB Conc 34 g/dL (31-36); Mean Corpuscular Hemoglobin 29 pg (27-31); Mean Corpuscular Volume 87 fL (80-97); Mean Platelet Volume 9.3 fL (7.4-10.4); Platelet Count 91 10^3/uL (150-450); Red Blood Count 4.32 10^6 /uL (3.70-4.87); Red Cell Distribution Width 16 % (10-15); White Blood Count 3.2 10^3/uL (3.5-10.8)
[2022-04-29 06:56] LABS: INR 1.68 (0.86-1.15)
[2022-04-29 08:07] LABS: Calcium 8.9 mg/dL (8.6-10.3); Potassium 3.9 mmol/L (3.5-5.0); eGFR CKD-EPI 58.4 (>60)
[2022-04-29] MEDS: Heparin DRIP 25,000 UNITS BAG 25,000 UNITS/500 ML BAG IV SCH (10:31)
[2022-04-29] MEDS: Aspirin EC 81 mg TAB.EC (enteric coated) PO SCH (10:39)
[2022-04-29] MEDS: Multivitamins/Minerals TAB PO SCH (10:39)
[2022-04-29] MEDS: Polyethylene Glycol 3350 17 GM PACKET PO PRN (10:40)
[2022-04-29] MEDS: Cholecalciferol (VIT D3) 1,000 unit TAB PO SCH (10:42)
[2022-04-30 06:08] LABS: ABS Eosinophils 0.2 10^3/ul (0-0.6); ABS Monocytes 0.3 10^3/ul (0-0.8); ABS Neutrophils 2.2 10^3/ul (1.5-7.7); Eosinophil % 5.4 %; Hematocrit 40 % (35-47); Lymphocyte % 26.3 %; Mean Corpuscular HGB Conc 33 g/dL (31-36); Mean Corpuscular Hemoglobin 28 pg (27-31); Mean Corpuscular Volume 87 fL (80-97); Mean Platelet Volume 9.1 fL (7.4-10.4); Nucleated Red Blood Cells % 0.2; Platelet Count 103 10^3/uL (150-450); Red Blood Count 4.59 10^6 /uL (3.70-4.87); Red Cell Distribution Width 17 % (10-15); White Blood Count 3.7 10^3/uL (3.5-10.8)
[2022-04-30 06:25] LABS: Activated Partial Thrombo Time 63.9 seconds (26.0-38.0); INR 1.3 (0.86-1.15)
[2022-04-30] MEDS ORDERED: ceFAZolin VIAL 1 GM in NS 0.9% 50 ML 50 ML IVPB ONE (07:00)
[2022-04-30] MEDS ORDERED: NS 0.9% 1000 ml BAG 1,000 ML IV SCH (07:00)
[2022-04-30] MEDS ORDERED: ceFAZolin 2 GM in NS PREMIX 2 GM/100 ML BAG IVPB ONE (07:00)
[2022-04-30] MEDS ORDERED: fentaNYL 100 mcg/2 ml 50 MCG/ML VIAL ONE (07:27)
[2022-04-30] MEDS ORDERED: Rocuronium 50 mg VIAL 10 mg/ml 5 ml VIAL (50 mg) ONE (07:27)
[2022-04-30] MEDS ORDERED: Ketamine HCL 50 mg/ml 10 ml VIAL (500 MG) ONE (07:28)
[2022-04-30] MEDS ORDERED: Phenylephrine IV 10 MG/ML 1 ml VIAL ONE (07:28)
[2022-04-30] MEDS ORDERED: Propofol 10 MG/ML 20 ML BTL ONE (07:28)
[2022-04-30] MEDS ORDERED: Midazolam 2 mg/2 ml VIAL 1 mg/ml 2 ml VIAL (2 mg) ONE (07:28)
[2022-04-30] MEDS ORDERED: Ondansetron 4 mg VIAL 2 MG/ML 2 ml VIAL ONE (07:30)
[2022-04-30] MEDS ORDERED: ceFAZolin 1 GM in Dextrose 1 GM/50 ML BAG ONE (07:35)
[2022-04-30] MEDS ORDERED: Glycopyrrolate IV 0.2 MG/ML 1 ML VIAL ONE (07:37)
[2022-04-30] MEDS ORDERED: Sterile Water for Inj 0 ML ONE (07:37)
[2022-04-30] MEDS ORDERED: Iohexol 300 (CONTRAST) 10 ML SDV ONE (08:12)
[2022-04-30] MEDS ORDERED: Lidocaine 1% MPF 5 ML VIAL ONE (08:21)
[2022-04-30] MEDS ORDERED: Acetaminophen IV 1 GM/100ML 100 ML IV ONE (10:58)
[2022-04-30] MEDS ORDERED: ceFAZolin VIAL 1 GM in NS 0.9% 50 ML 50 ML IVPB SCH (11:00)
[2022-04-30] MEDS ORDERED: Acetaminophen IV 1 GM/100ML 100 ML IV PRN (11:41)
[2022-04-30] MEDS ORDERED: fentaNYL 100 mcg/2 ml 50 MCG/ML VIAL IV PRN (11:41)
[2022-04-30] MEDS ORDERED: Naloxone 0.4 mg VIAL 0.4 mg/ml 1 ml VIAL IV PRN (11:41)
[2022-04-30] MEDS: Aspirin EC 81 mg TAB.EC (enteric coated) PO SCH (12:32)
[2022-04-30] MEDS: Cholecalciferol (VIT D3) 1,000 unit TAB PO SCH (12:32)
[2022-04-30] MEDS: Multivitamins/Minerals TAB PO SCH (12:32)
[2022-04-30] MEDS ORDERED: Heparin DRIP 25,000 UNITS BAG 25,000 UNITS/500 ML BAG ONE (13:51)
[2022-04-30] MEDS: Heparin DRIP 25,000 UNITS BAG 25,000 UNITS/500 ML BAG IV SCH (13:54)
[2022-04-30] MEDS ORDERED: Warfarin per PHARMACY **NOTE FOLLOW UP SCH (15:00)
[2022-04-30] MEDS: ceFAZolin 1 GM X 3 DOSES POST-OP Q8H (AddVan) IVPB SCH (16:16)
[2022-04-30] MEDS: Polyethylene Glycol 3350 17 GM PACKET PO PRN (20:12)
[2022-05-01] MEDS: ceFAZolin 1 GM X 3 DOSES POST-OP Q8H (AddVan) IVPB SCH ×2 (00:49→08:37)
[2022-05-01 04:47] LABS: ABS Eosinophils 0.2 10^3/ul (0-0.6); ABS Lymphocytes 0.9 10^3/ul (1.0-4.8); ABS Monocytes 0.4 10^3/ul (0-0.8); ABS Neutrophils 4.1 10^3/ul (1.5-7.7); Eosinophil % 3.4 %; Hematocrit 39 % (35-47); Hemoglobin 12.6 g/dL (12.0-16.0); Lymphocyte % 16.5 %; Mean Corpuscular HGB Conc 33 g/dL (31-36); Mean Corpuscular Hemoglobin 29 pg (27-31); Mean Corpuscular Volume 88 fL (80-97); Mean Platelet Volume 8.9 fL (7.4-10.4); Nucleated Red Blood Cells % 0.1; Platelet Count 100 10^3/uL (150-450); Red Cell Distribution Width 16 % (10-15); White Blood Count 5.6 10^3/uL (3.5-10.8)
[2022-05-01 04:50] LABS: INR 1.3 (0.86-1.15)
[2022-05-01 06:21] LABS: Calcium 8.8 mg/dL (8.6-10.3); Potassium 4.1 mmol/L (3.5-5.0); eGFR CKD-EPI 65.3 (>60)
[2022-05-01] MEDS: Aspirin EC 81 mg TAB.EC (enteric coated) PO SCH (08:38)
[2022-05-01] MEDS: Cholecalciferol (VIT D3) 1,000 unit TAB PO SCH (08:39)
[2022-05-01] MEDS: Multivitamins/Minerals TAB PO SCH (08:40)
[2022-05-01] MEDS ORDERED: Heparin DRIP 25,000 UNITS BAG 25,000 UNITS/500 ML BAG ONE (10:12)
[2022-05-01] MEDS: Heparin DRIP 25,000 UNITS BAG 25,000 UNITS/500 ML BAG IV SCH (10:24)
[2022-05-01] MEDS: Polyethylene Glycol 3350 17 GM PACKET PO PRN (12:26)
[2022-05-01] MEDS ORDERED: Polyethylene Glycol 3350 17 GM PACKET PO PRN (13:56)
[2022-05-01] MEDS ORDERED: Magnesium Hydroxide LIQ 30 ML UDC PO PRN (13:56)
[2022-05-01] MEDS ORDERED: Senna TAB 8.6 mg TAB PO PRN (13:56)
[2022-05-01] MEDS: Warfarin DAILY REMINDER **NOTE FOLLOW UP SCH (17:09)
[2022-05-02] MEDS: Polyethylene Glycol 3350 17 GM PACKET PO PRN (05:35)
[2022-05-02 07:11] LABS: Activated Partial Thrombo Time 36.1 seconds (26.0-38.0); INR 1.46 (0.86-1.15)
[2022-05-02 07:14] LABS: Hematocrit 39 % (35-47); Hemoglobin 12.8 g/dL (12.0-16.0); Mean Corpuscular HGB Conc 33 g/dL (31-36); Mean Corpuscular Hemoglobin 29 pg (27-31); Mean Corpuscular Volume 88 fL (80-97); Red Blood Count 4.43 10^6 /uL (3.70-4.87); Red Cell Distribution Width 17 % (10-15)
[2022-05-02 07:31] LABS: Calcium 9.1 mg/dL (8.6-10.3); Potassium 4.1 mmol/L (3.5-5.0); eGFR CKD-EPI 68.9 (>60)
[2022-05-02 08:38] LABS: ABS Eosinophils 0.2 10^3/ul (0-0.6); ABS Lymphocytes 0.9 10^3/ul (1.0-4.8); ABS Monocytes 0.5 10^3/ul (0-0.8); ABS Neutrophils 3.5 10^3/ul (1.5-7.7); Eosinophil % 3.5 %; Lymphocyte % 17.5 %; Mean Platelet Volume 9.1 fL (7.4-10.4); Platelet Count 86 10^3/uL (150-450)
[2022-05-02] MEDS: Cholecalciferol (VIT D3) 1,000 unit TAB PO SCH (10:40)
[2022-05-02] MEDS: Multivitamins/Minerals TAB PO SCH (10:41)
[2022-05-02] MEDS: Aspirin EC 81 mg TAB.EC (enteric coated) PO SCH (10:42)
[2022-05-02] MEDS: Heparin DRIP 25,000 UNITS BAG 25,000 UNITS/500 ML BAG IV SCH (11:16)
[2022-05-02] MEDS: Heparin 5000 UNITS/ML 1 mL VIAL IV SCH (11:17)
[2022-05-02] MEDS: Warfarin DAILY REMINDER **NOTE FOLLOW UP SCH (17:18)
[2022-05-03 05:10] LABS: ABS Eosinophils 0.2 10^3/ul (0-0.6); ABS Lymphocytes 0.9 10^3/ul (1.0-4.8); ABS Monocytes 0.4 10^3/ul (0-0.8); ABS Neutrophils 3.5 10^3/ul (1.5-7.7); Eosinophil % 4.1 %; Hematocrit 41 % (35-47); Hemoglobin 13.3 g/dL (12.0-16.0); Lymphocyte % 18.1 %; Mean Corpuscular HGB Conc 32 g/dL (31-36); Mean Corpuscular Hemoglobin 29 pg (27-31); Mean Corpuscular Volume 89 fL (80-97); Nucleated Red Blood Cells % 0.2; Platelet Count 86 10^3/uL (150-450); Red Blood Count 4.67 10^6 /uL (3.70-4.87); Red Cell Distribution Width 17 % (10-15); White Blood Count 5.1 10^3/uL (3.5-10.8)
[2022-05-03 05:16] LABS: Activated Partial Thrombo Time 57.5 seconds (26.0-38.0); INR 1.64 (0.86-1.15)
[2022-05-03 05:28] LABS: Calcium 9.1 mg/dL (8.6-10.3); Potassium 4.4 mmol/L (3.5-5.0)
[2022-05-03] MEDS: Aspirin EC 81 mg TAB.EC (enteric coated) PO SCH (10:02)
[2022-05-03] MEDS: Cholecalciferol (VIT D3) 1,000 unit TAB PO SCH (10:02)
[2022-05-03] MEDS: Multivitamins/Minerals TAB PO SCH (10:03)
[2022-05-03] MEDS: Heparin DRIP 25,000 UNITS BAG 25,000 UNITS/500 ML BAG IV SCH (11:18)
[2022-05-03] MEDS: Warfarin DAILY REMINDER **NOTE FOLLOW UP SCH (18:39)
[2022-05-04 06:35] LABS: ABS Eosinophils 0.2 10^3/ul (0-0.6); ABS Lymphocytes 0.7 10^3/ul (1.0-4.8); ABS Monocytes 0.5 10^3/ul (0-0.8); ABS Neutrophils 3.8 10^3/ul (1.5-7.7); Eosinophil % 3.8 %; Hematocrit 42 % (35-47); Hemoglobin 13.4 g/dL (12.0-16.0); Lymphocyte % 13.2 %; Mean Corpuscular HGB Conc 32 g/dL (31-36); Mean Corpuscular Hemoglobin 28 pg (27-31); Mean Corpuscular Volume 88 fL (80-97); Mean Platelet Volume 8.9 fL (7.4-10.4); Platelet Count 95 10^3/uL (150-450); Red Blood Count 4.74 10^6 /uL (3.70-4.87); Red Cell Distribution Width 16 % (10-15); White Blood Count 5.2 10^3/uL (3.5-10.8)
[2022-05-04 06:45] LABS: Activated Partial Thrombo Time 35.6 seconds (26.0-38.0); INR 2.16 (0.86-1.15)
[2022-05-04 07:19] LABS: Calcium 9.3 mg/dL (8.6-10.3); Potassium 4.1 mmol/L (3.5-5.0); eGFR CKD-EPI 64.5 (>60)
[2022-05-04] MEDS: Heparin 5000 UNITS/ML 1 mL VIAL IV SCH (07:45)
[2022-05-04] MEDS: Heparin DRIP 25,000 UNITS BAG 25,000 UNITS/500 ML BAG IV SCH (07:45)
[2022-05-04] MEDS: Cholecalciferol (VIT D3) 1,000 unit TAB PO SCH (08:42)
[2022-05-04] MEDS: Multivitamins/Minerals TAB PO SCH (08:42)
[2022-05-04] MEDS: Aspirin EC 81 mg TAB.EC (enteric coated) PO SCH (08:42)
[2022-05-04] MEDS: Warfarin DAILY REMINDER **NOTE FOLLOW UP SCH (16:56)
[2022-05-05] MEDS: Heparin DRIP 25,000 UNITS BAG 25,000 UNITS/500 ML BAG IV SCH (05:15)
[2022-05-05 06:03] LABS: ABS Eosinophils 0.2 10^3/ul (0-0.6); ABS Lymphocytes 0.9 10^3/ul (1.0-4.8); ABS Monocytes 0.4 10^3/ul (0-0.8); ABS Neutrophils 2.8 10^3/ul (1.5-7.7); Eosinophil % 4.7 %; Hematocrit 40 % (35-47); Hemoglobin 13.1 g/dL (12.0-16.0); Lymphocyte % 20.8 %; Mean Corpuscular HGB Conc 33 g/dL (31-36); Mean Corpuscular Hemoglobin 29 pg (27-31); Mean Corpuscular Volume 88 fL (80-97); Mean Platelet Volume 9.6 fL (7.4-10.4); Platelet Count 100 10^3/uL (150-450); Red Blood Count 4.56 10^6 /uL (3.70-4.87); Red Cell Distribution Width 17 % (10-15); White Blood Count 4.4 10^3/uL (3.5-10.8)
[2022-05-05 06:12] LABS: Activated Partial Thrombo Time 46.8 seconds (26.0-38.0)
[2022-05-05] MEDS: Heparin 5000 UNITS/ML 1 mL VIAL IV SCH (06:32)
[2022-05-05 06:36] LABS: INR 2.94 (0.86-1.15)
[2022-05-05 06:41] LABS: Calcium 9.3 mg/dL (8.6-10.3); Potassium 4.3 mmol/L (3.5-5.0); eGFR CKD-EPI 63.7 (>60)
[2022-05-05] MEDS: Aspirin EC 81 mg TAB.EC (enteric coated) PO SCH (10:13)
[2022-05-05] MEDS: Cholecalciferol (VIT D3) 1,000 unit TAB PO SCH (10:13)
[2022-05-05] MEDS: Multivitamins/Minerals TAB PO SCH (10:14)
[2022-05-05] MEDS: Polyethylene Glycol 3350 17 GM PACKET PO PRN (10:57)
[2022-05-05 15:53] VITALS: BP 146/82
[2022-05-05] MEDS ORDERED: Warfarin DAILY REMINDER **NOTE FOLLOW UP SCH (17:00)
[2022-05-05 20:44] LABS: HIT ELISA 0.096 OD (<0.400); Heparin PF4 Antibody Interp Negative (Negative)
== END 2022-05-05 16:07 | disposition swing bed (61) | DRG 242 ==
LOC: ED 10:34 → EDHOLD 10:34 → SUATTDRO 17:59 → MEDTELE 21:06 → SUATTDRO 04-26 14:00 → MEDTELE 05-02 09:52
PROVIDERS: ADMIT Student in an Organized Health Care Education/Training Program; ATTEND Internal Medicine

== ENCOUNTER 2022-05-05 17:02 | Inpatient (IN) ==
[2022-05-06 06:30] LABS: INR 3.75 (0.86-1.15)
[2022-05-06] MEDS: Cholecalciferol (VIT D3) 1,000 unit TAB PO SCH (08:25)
[2022-05-06] MEDS: Multivitamins/Minerals TAB PO SCH (08:26)
[2022-05-06] MEDS: Aspirin EC 81 mg TAB.EC (enteric coated) PO SCH (08:26)
[2022-05-06] MEDS ORDERED: Warfarin per PHARMACY **NOTE FOLLOW UP SCH (12:00)
[2022-05-06] MEDS ORDERED: Warfarin - No Order Today **NOTE FOLLOW UP ONE (17:00)
[2022-05-07 06:03] LABS: INR 4.06 (0.86-1.15)
[2022-05-07] MEDS: Cholecalciferol (VIT D3) 1,000 unit TAB PO SCH (10:04)
[2022-05-07] MEDS: Aspirin EC 81 mg TAB.EC (enteric coated) PO SCH (10:05)
[2022-05-07] MEDS: Multivitamins/Minerals TAB PO SCH (10:06)
[2022-05-07] MEDS ORDERED: Warfarin - No Order Today **NOTE FOLLOW UP ONE (17:00)
[2022-05-08 05:55] LABS: INR 2.94 (0.86-1.15)
[2022-05-08] MEDS: Cholecalciferol (VIT D3) 1,000 unit TAB PO SCH (10:24)
[2022-05-08] MEDS: Aspirin EC 81 mg TAB.EC (enteric coated) PO SCH (10:24)
[2022-05-08] MEDS: Multivitamins/Minerals TAB PO SCH (10:25)
[2022-05-08] MEDS: Warfarin DAILY REMINDER **NOTE FOLLOW UP SCH (17:56)
[2022-05-09 06:29] LABS: INR 2.77 (0.86-1.15)
[2022-05-09] MEDS: Aspirin EC 81 mg TAB.EC (enteric coated) PO SCH (08:32)
[2022-05-09] MEDS: Cholecalciferol (VIT D3) 1,000 unit TAB PO SCH (08:32)
[2022-05-09] MEDS: Multivitamins/Minerals TAB PO SCH (08:33)
[2022-05-09] MEDS: Warfarin DAILY REMINDER **NOTE FOLLOW UP SCH (17:17)
[2022-05-09] MEDS: Polyethylene Glycol 3350 17 GM PACKET PO PRN (17:17)
[2022-05-10 06:50] LABS: INR 3.65 (0.86-1.15)
[2022-05-10] MEDS: Cholecalciferol (VIT D3) 1,000 unit TAB PO SCH (09:50)
[2022-05-10] MEDS: Aspirin EC 81 mg TAB.EC (enteric coated) PO SCH (09:51)
[2022-05-10] MEDS: Multivitamins/Minerals TAB PO SCH (09:51)
[2022-05-10] MEDS: Warfarin DAILY REMINDER **NOTE FOLLOW UP SCH (16:16)
[2022-05-10] MEDS ORDERED: Warfarin - No Order Today **NOTE FOLLOW UP ONE (17:00)
[2022-05-11 06:16] LABS: INR 3.18 (0.86-1.15)
[2022-05-11] MEDS: Cholecalciferol (VIT D3) 1,000 unit TAB PO SCH (08:09)
[2022-05-11] MEDS: Aspirin EC 81 mg TAB.EC (enteric coated) PO SCH (08:15)
[2022-05-11] MEDS: Multivitamins/Minerals TAB PO SCH (08:17)
[2022-05-11] MEDS: Polyethylene Glycol 3350 17 GM PACKET PO PRN (08:31)
[2022-05-11] MEDS ORDERED: ceFAZolin 1 GM ADVAN 1 GM in NS 0.9% 50 ML 50 ML IVPB SCH (16:00)
[2022-05-11 16:05] LABS: ABS Eosinophils 0.2 10^3/ul (0-0.6); ABS Lymphocytes 1.1 10^3/ul (1.0-4.8); ABS Monocytes 0.5 10^3/ul (0-0.8); Eosinophil % 3.8 %; Hematocrit 43 % (35-47); Hemoglobin 13.5 g/dL (12.0-16.0); Lymphocyte % 18.1 %; Mean Corpuscular HGB Conc 32 g/dL (31-36); Mean Corpuscular Hemoglobin 28 pg (27-31); Mean Corpuscular Volume 89 fL (80-97); Mean Platelet Volume 9.3 fL (7.4-10.4); Nucleated Red Blood Cells % 0.1; Platelet Count 139 10^3/uL (150-450); Red Blood Count 4.76 10^6 /uL (3.70-4.87); Red Cell Distribution Width 17 % (10-15); White Blood Count 5.8 10^3/uL (3.5-10.8)
[2022-05-11 16:16] LABS: CRP High Sensitivity 2.24 mg/L (<2.00); Potassium 4.1 mmol/L (3.5-5.0); eGFR CKD-EPI 64.5 (>60)
[2022-05-11 18:04] LABS: C Reactive Protein 2.58 mg/L (<8.01)
[2022-05-11] MEDS: Warfarin DAILY REMINDER **NOTE FOLLOW UP SCH (18:14)
[2022-05-12 05:42] LABS: Hematocrit 40 % (35-47); Hemoglobin 13.5 g/dL (12.0-16.0); Mean Platelet Volume 8.9 fL (7.4-10.4); Platelet Count 139 10^3/uL (150-450)
[2022-05-12 05:49] LABS: INR 2.83 (0.86-1.15)
[2022-05-12 05:57] LABS: eGFR CKD-EPI 78.4 (>60)
[2022-05-12] MEDS: Multivitamins/Minerals TAB PO SCH (09:37)
[2022-05-12] MEDS: Cholecalciferol (VIT D3) 1,000 unit TAB PO SCH (09:42)
[2022-05-12] MEDS: Aspirin EC 81 mg TAB.EC (enteric coated) PO SCH (09:42)
[2022-05-12 15:20] VITALS: BP 117/69
[2022-05-12] MEDS: Warfarin DAILY REMINDER **NOTE FOLLOW UP SCH (16:16)
== END 2022-05-12 16:00 | DRG 308 ==
LOC: SUATTDRO 17:02 → MEDTELE 17:02
PROVIDERS: ADMIT Nurse Practitioner Family; ATTEND Pediatrics